=== PATIENT | female | born 1960 | race Caucasian/White ===

== ENCOUNTER → 2020-09-29 08:04 | Outpatient (BNVA) | payer OTHER, SELFPAY | PROVIDERS: PCP Internal Medicine; Referring Provider Internal Medicine; Visit Provider Psychiatry & Neurology Neurology | DX: Z76.89 Persons encountering health services in other specified circumstances (principal) ==

== ENCOUNTER 2020-11-12 10:43 | Outpatient (REF) | payer OTHER, SELFPAY ==
--- NOTE | 2020-11-12 10:48 | MM_ITS ---
EXAMINATION: MM SCREENING DIGITAL BREAST TOMOSYNTHESIS, BILATERAL CLINICAL INFORMATION: Screening. Asymptomatic. Family history breast cancer maternal and paternal aunts. Benign right MR guided biopsy 04/15/2016 (Benign breast tissue with focal adenosis, stromal fibrosis, and microcalcifications). The lifetime risk of breast cancer based on the Tyrer-Cuzick Model is 21.4%. COMPARISON: Mammography: 05/21/2019, 05/15/2018, 05/11/2017; MRI breasts 11/26/2019 TECHNIQUE: Digital breast tomosynthesis is performed in both the craniocaudal and mediolateral oblique views along with computer-aided detection (CAD). Synthesized 2D images are generated from the tomosynthesis. FINDINGS: The breasts are heterogeneously dense, which may obscure small masses (ACR BI-RADS breast composition Category c). There are no significant masses, abnormal calcifications, or other abnormalities. There is a biopsy clip marker again seen posterior central 3:00 right breast. MM/MM tomosynthesis screening BI IMPRESSION: No significant changes from prior studies. ASSESSMENT: BI-RADS 1: Negative RECOMMENDATION: 1. Routine annual mammography screening. 2. The lifetime risk of breast cancer based on the Tyrer-Cuzick Model is 21.4%. Additional annual adjunct screening with breast MRI may be of benefit in women with a risk score of 20% or greater. This patient's information was entered into a reminder system with a target due date for their next mammogram.
== END 2020-11-12 10:44 | disposition home or self-care (01) ==
LOC: HO.MAMMO 10:43
PROVIDERS: Visit Provider Internal Medicine
DX: Z12.31 Encounter for screening mammogram for malignant neoplasm of breast (principal)
CPT/HCPCS: 77063; 77067

== ENCOUNTER → 2020-11-24 15:43 | Outpatient (BNVA) | payer OTHER, SELFPAY | PROVIDERS: PCP Internal Medicine; Referring Provider Internal Medicine; Visit Provider Surgery | DX: Z76.89 Persons encountering health services in other specified circumstances (principal) ==

== ENCOUNTER 2021-02-06 08:27 | Outpatient (REF) | payer OTHER, SELFPAY ==
[2021-02-06 09:57] LABS: Blood Urea Nitrogen 17 mg/dL (9-16); Estimated Glomerular Filt Rate > 60
== END 2021-02-06 08:28 | disposition home or self-care (01) ==
LOC: HO.LAB 08:27
PROVIDERS: Surgery; PCP Internal Medicine; Visit Provider Internal Medicine
DX: Z01.812 Encounter for preprocedural laboratory examination (principal); G47.33 Obstructive sleep apnea (adult) (pediatric); F41.9 Anxiety disorder, unspecified; E78.00 Pure hypercholesterolemia, unspecified; I25.10 Atherosclerotic heart disease of native coronary artery without angina pectoris; E53.8 Deficiency of other specified B group vitamins; R00.2 Palpitations
CPT/HCPCS: 36415; 82565; 84520

== ENCOUNTER 2021-02-19 18:02 | Outpatient (REF) | payer OTHER, SELFPAY ==
[2021-02-20 15:16] LABS: BV Int Neg Control Negative (Negative); BV Int Pos Control Positive (Positive)
== END 2021-02-19 18:03 | disposition home or self-care (01) ==
LOC: HO.LNP 18:02
PROVIDERS: Visit Provider Internal Medicine
DX: Z12.4 Encounter for screening for malignant neoplasm of cervix (principal); Z11.3 Encounter for screening for infections with a predominantly sexual mode of transmission
CPT/HCPCS: 87480; 87510; 87660; 88142

== ENCOUNTER 2021-02-27 08:47 | Outpatient (REF) | payer OTHER, SELFPAY ==
[2021-02-27 10:10] LABS: MANUAL DIFF FLAG NO
[2021-02-27 10:13] LABS: Basophils Percent Auto 0.9 % (0-2); Eosinophils Absolute Auto 0.1 X10*3/uL (0.0-0.4); Eosinophils Percent Auto 2.3 % (0-4); Hematocrit 38.2 % (37-47); Imm Gran Abs Auto 0.01 X10*3/uL (0.00-0.03); Imm Gran Pct Auto 0.3 % (0.0-0.4); Lymphocytes Absolute Auto 1.5 X10*3/uL (1.2-4.9); Lymphocytes Percent Auto 44.6 % (20-40); Mean Corpuscular HGB Conc 31.4 g/dl (31.0-35.0); Mean Corpuscular Hemoglobin 34.2 pg (27.0-33.0); Mean Corpuscular Volume 108.8 fL (80-98); Mean Platelet Volume 9.3 fL (9.4-12.3); Monocytes Absolute Auto 0.3 X10*3/uL (0.1-1.2); Monocytes Percent Auto 9.3 % (2-11); Neutrophils Absolute Auto 1.5 X10*3/uL (2.0-8.3); Neutrophils Percent Auto 42.6 % (45-73); Platelet Count 197 X10*3/uL (160-400); Red Blood Count 3.51 X10*6/uL (4.20-5.50); Red Cell Distribution Width 12.1 % (11.0-16.0); White Blood Count 3.5 X10*3/uL (4.8-10.8)
[2021-02-27 10:50] LABS: Alanine Aminotransferase 18 U/L (0-31); Alkaline Phosphatase 67 U/L (39-117); Anion Gap 9 (12-20); Aspartate Amino Transferase 21 U/L (5-31); Bilirubin Total 0.9 mg/dL (0.0-1.0); Blood Urea Nitrogen 13 mg/dL (9-16); Calcium 8.9 mg/dL (8.4-10.2); Carbon Dioxide 28 mmol/L (22-29); Chloride 109 mmol/L (96-108); Cholesterol 151 mg/dL; Estimated Glomerular Filt Rate > 60; Glucose Random 92 mg/dL (60-115); HDL Cholesterol 80 mg/dL; LDL Cholesterol Calculated 64 mg/dl; Potassium 4.4 mmol/L (3.3-5.1); Sodium 142 mmol/L (135-145); Total Protein 6.2 g/dL (6.5-8.0); Triglycerides 36 mg/dL
[2021-02-27 11:06] LABS: Free T4 (Free Thyroxine) 1.03 ng/dL (0.71-1.85); Thyroid Stimulating Hormone 1.14 uIU/mL (0.32-4.0); Vitamin D 25-OH Total 30.1 ng/mL (>30)
[2021-02-27 13:23] LABS: CT PCR NOT DETECTED (Not Detect.); NG PCR NOT DETECTED (Not Detect.)
[2021-03-01 03:52] LABS: Folate 11.1 ng/mL (> or = 4.0); Vitamin B12 1273 pg/mL (200-900)
== END 2021-02-27 08:48 | disposition home or self-care (01) ==
LOC: HO.LAB 08:47
PROVIDERS: PCP Internal Medicine; Visit Provider Internal Medicine
DX: Z11.3 Encounter for screening for infections with a predominantly sexual mode of transmission (principal); E78.00 Pure hypercholesterolemia, unspecified; I25.10 Atherosclerotic heart disease of native coronary artery without angina pectoris
CPT/HCPCS: 80053; 80061; 82306; 82607; 82746; 84439; 84443; 85025; 87491; 87591

== ENCOUNTER → 2021-04-13 11:07 | Outpatient (BNVA) | payer OTHER, SELFPAY | PROVIDERS: PCP Internal Medicine; Visit Provider Psychiatry & Neurology Neurology ==

== ENCOUNTER 2021-05-19 18:07 | Outpatient (REF) | payer OTHER, SELFPAY ==
--- NOTE | ~2021-05-19 | MR_ITS ---
EXAMINATION: MR BREAST WITHOUT AND WITH CONTRAST, BILATERAL CLINICAL INFORMATION: High-risk screening. COMPARISON: MRI 11/26/2019, 11/16/2018. TECHNIQUE: Imaging was performed with a dedicated breast coil. Prior to the administration of contrast, bilateral axial T1 and bilateral axial T2 weighted sequences were obtained. After the uneventful administration of?7 mL of Gadavist, dynamic contrast-enhanced VIBRANT series through the breasts in the axial plane were performed. Subtracted images were performed and reviewed. A delayed sagittal sequence through both breasts was acquired. Additionally, CAD post-processing, including maximum intensity projections, 3-D reconstructions and kinetic analysis, were performed an independent workstation and reviewed by the interpreting radiologist is a portion of this exam. FINDINGS: The patient's fibroglandular tissue demonstrates mild background enhancement. LEFT BREAST: No suspicious masslike or non-masslike enhancement. No abnormal skin thickening or nipple retraction. No abnormal architectural distortion. Review of the T2 weighted images demonstrates no fibrocystic changes or dilated ducts. Review of kinetic images reveals no additional findings. RIGHT BREAST: No suspicious masslike or non-masslike enhancement. No abnormal skin thickening or nipple retraction. No abnormal architectural distortion. Review of the T2 weighted images demonstrates no fibrocystic changes or dilated ducts. Review of kinetic images reveals no additional findings. There is no suspicious internal mammary chain or axillary adenopathy. Limited views of the chest and abdomen are unremarkable. MR/MR breast BI wo/w con IMPRESSION: No MR specific evidence of malignancy. ASSESSMENT: LEFT BREAST: BI-RADS 1-Negative RIGHT BREAST: BI-RADS 1-Negative RECOMMENDATIONS: Clinical follow-up. Continued annual mammographic surveillance. Further breast MRI as risk factors dictate.
== END 2021-05-19 18:08 | disposition home or self-care (01) ==
LOC: HO.MRI 18:07
PROVIDERS: PCP Internal Medicine; Visit Provider Surgery
DX: Z91.89 Other specified personal risk factors, not elsewhere classified (principal); Z80.3 Family history of malignant neoplasm of breast
CPT/HCPCS: 77049; A9585

== ENCOUNTER → 2021-06-10 15:22 | Outpatient (BNVA) | payer OTHER, SELFPAY | PROVIDERS: PCP Internal Medicine; Referring Provider Internal Medicine; Visit Provider Surgery ==

== ENCOUNTER → 2021-07-15 13:09 | Outpatient (BNVA) | payer OTHER, SELFPAY | PROVIDERS: PCP Internal Medicine; Referring Provider Internal Medicine; Visit Provider Internal Medicine | DX: I25.10 Atherosclerotic heart disease of native coronary artery without angina pectoris (principal); G47.33 Obstructive sleep apnea (adult) (pediatric); R94.39 Abnormal result of other cardiovascular function study | CPT/HCPCS: 93005 ==

== ENCOUNTER → 2021-10-26 11:50 | Outpatient (BNVA) | payer OTHER, SELFPAY | PROVIDERS: PCP Internal Medicine; Referring Provider Internal Medicine; Visit Provider Psychiatry & Neurology Neurology ==

== ENCOUNTER 2021-11-24 09:47 | Outpatient (REF) | payer OTHER, SELFPAY ==
--- NOTE | ~2021-11-24 | MM_ITS ---
EXAMINATION: MM SCREENING DIGITAL BREAST TOMOSYNTHESIS, BILATERAL CLINICAL INFORMATION: Screening. Asymptomatic. Prior history right lumpectomy for ADH, 2007. Benign right MR guided biopsy 04/15/2016 (focal adenosis, stromal fibrosis, microcalcifications). The lifetime risk of breast cancer based on the Tyrer-Cuzick Model is 28%. COMPARISON: Mammography: 11/12/2020, 05/21/2019, 06/01/2018; MR breasts 05/19/2021 TECHNIQUE: Digital breast tomosynthesis is performed in both the craniocaudal and mediolateral oblique views along with computer-aided detection (CAD). Synthesized 2D images are generated from the tomosynthesis. FINDINGS: The breasts are heterogeneously dense, which may obscure small masses (ACR BI-RADS breast composition Category c). Parenchymal pattern is similar to prior study. No interval mass, developing density, or architectural abnormality. There is biopsy marker again noted posterior central 3:00 right breast. The axilla and skin contours are unremarkable. Left breast has 3 small benign coarse calcifications mid upper outer quadrant. Right breast has some fine calcifications posterior central 1:00 position, some possibly related to vascular calcification on MLO tomography. MM/MM tomosynthesis screening BI IMPRESSION: 1. Right: Fine calcifications posterior central 1:00 position, some possibly vascular. 2. Left: No significant changes from prior study. ASSESSMENT: BI-RADS 0: Incomplete - Need Additional Imaging Evaluation RECOMMENDATION: 1. Additional views of the right breast (magnification CC, magnification LM). 2. Radiology department staff will contact the patient for additional imaging. 3. The lifetime risk of breast cancer based on the Tyrer-Cuzick Model is 28%. Additional annual adjunct screening with breast MRI may be of benefit in women with a risk score of 20% or greater. This patient's information was entered into a reminder system with a target due date for their next mammogram.
== END 2021-11-24 09:48 | disposition home or self-care (01) ==
LOC: HO.MAMMO 09:47
PROVIDERS: PCP Internal Medicine; Visit Provider Internal Medicine
DX: Z12.31 Encounter for screening mammogram for malignant neoplasm of breast (principal)
CPT/HCPCS: 77063; 77067

== ENCOUNTER 2021-12-08 14:56 | Outpatient (REF) | payer OTHER, SELFPAY ==
--- NOTE | ~2021-12-08 | MM_ITS ---
EXAMINATION: MM DIAGNOSTIC DIGITAL MAMMOGRAPHY, RIGHT CLINICAL INFORMATION: Recall from screening for new fine calcifications posterior central 1:00 position. Prior history right lumpectomy for ADH, 2007. Benign right MR guided biopsy 2016 (focal adenosis, stromal fibrosis, microcalcifications). TC score 28%. COMPARISON: Mammography: 11/12/2020, 05/21/2019; MR bilateral breasts 05/19/2021. TECHNIQUE: Digital mammography is performed in the following views: Magnification CC, magnification LM, magnification LMO. FINDINGS: The breasts are heterogeneously dense, which may obscure small masses (ACR BI-RADS breast composition Category c). The additional magnification views demonstrate loosely grouped punctate calcifications which slightly vary in size and attenuation. There are likely at least 10 calcifications in the group. Results are discussed with the patient at time of visit. Management options are discussed with the patient. Patient is in favor of stereotactic sampling. Results are called to the telegraph office manager (Deepali) for Dr. Hernandez on 12/08/2021. MM/MM added views RT IMPRESSION: New loosely grouped calcifications central 1:00 right breast which vary in size and attenuation. ASSESSMENT: BI-RADS 4: Suspicious (subcategory 4A: Low suspicion for malignancy) RECOMMENDATION: Stereotactic sampling right breast calcifications. This patient's information was entered into a reminder system with a target due date for their next mammogram.
== END 2021-12-08 14:57 | disposition home or self-care (01) ==
LOC: HO.MAMMO 14:56
PROVIDERS: Visit Provider Internal Medicine
DX: R92.1 Mammographic calcification found on diagnostic imaging of breast (principal)
CPT/HCPCS: 77065

== ENCOUNTER → 2021-12-09 15:42 | Outpatient (BNVA) | payer OTHER, SELFPAY | PROVIDERS: PCP Internal Medicine; Referring Provider Internal Medicine; Visit Provider Surgery ==

== ENCOUNTER 2021-12-10 07:57 | Outpatient (REF) | payer OTHER, SELFPAY ==
--- NOTE | ~2021-12-10 | MM_ITS ---
EXAMINATION: STEREOTACTIC TOMOSYNTHESIS-GUIDED VACUUM-ASSISTED BREAST BIOPSY, RIGHT BREAST SPECIMEN RADIOGRAPH, RIGHT POST PROCEDURE DIGITAL MAMMOGRAM, RIGHT CLINICAL INFORMATION: Indeterminate calcifications. History of previous right breast stereotactic core biopsy with atypical hyperplasia present. Family history of breast cancer. COMPARISON: December 08, 2021 and studies dating back to January 14, 2014. TECHNIQUE/PROCEDURE: Informed consent was obtained from the patient after discussion of the benefits, risks, and alternatives to biopsy today. Patient appeared to understand. Gave opportunity for questions. Patient signed consent form. BIOPSY TABLE: [employer] Biopsy System. LESION: Grouping of calcifications about the superior aspect of the right breast. LOCAL ANESTHESIA: 10 mL 1% lidocaine with 1 mL of bicarbonate; 20 mL 1% lidocaine with epinephrine. DERMATOTOMY: Single skin jose raul dermatotomy performed. NEEDLE: [employer] 9-gauge vacuum assisted core biopsy device. APPROACH: Superior. TARGETING: Digital breast tomosynthesis used for targeting. CORES: 21. CLIP: [employer] T-shaped marker. SPECIMEN RADIOGRAPH: Specimen radiograph is taken in separate room using digital mammography. The index calcifications are in the excised cores. POST PROCEDURE UNILATERAL DIGITAL MAMMOGRAM: The post biopsy mammogram is performed in separate room using separate digital mammography equipment from the biopsy procedure. Craniocaudal and 90 degree mediolateral views are obtained. There are scattered areas of fibroglandular density (breast composition category: b). The clip marker is in position. The calcifications are markedly decreased at the biopsy site. Small hematoma present. The patient tolerated the procedure well. No immediate complications. Home instructions reviewed with the patient. Final pathology results are pending. MM/MM stereotactic biopsy RT IMPRESSION: 1. Digital tomosynthesis-guided core biopsy right breast with clip placement. 2. Specimen radiograph taken and post procedure mammogram. There is satisfactory positioning of the biopsy clip. 3. Final pathology results pending. An addendum report will be issued.
[2021-12-10] MEDS: Lidocaine HCl 1 % 20 ML VIAL 10 ML SUBCUT (09:41)
[2021-12-10] MEDS: Sodium Bicarbonate 8.4% 50 MEQ/50 ML VIAL SUBCUT (09:43)
== END 2021-12-10 07:58 | disposition home or self-care (01) ==
LOC: HO.MAMMO 07:57
PROVIDERS: PCP Internal Medicine; Visit Provider Surgery
DX: N60.91 Unspecified benign mammary dysplasia of right breast (principal); R92.1 Mammographic calcification found on diagnostic imaging of breast; R92.8 Other abnormal and inconclusive findings on diagnostic imaging of breast
CPT/HCPCS: 19081; 88305; A4648

== ENCOUNTER → 2021-12-14 14:56 | Outpatient (BNVA) | payer OTHER, SELFPAY | PROVIDERS: PCP Internal Medicine; Referring Provider Internal Medicine; Visit Provider Surgery | DX: R92.8 Other abnormal and inconclusive findings on diagnostic imaging of breast (principal); R92.1 Mammographic calcification found on diagnostic imaging of breast; N60.91 Unspecified benign mammary dysplasia of right breast ==

== ENCOUNTER 2022-03-12 09:12 | Outpatient (REF) | payer OTHER, SELFPAY ==
[2022-03-12 09:39] LABS: MANUAL DIFF FLAG NO
[2022-03-12 10:01] LABS: Eosinophils Absolute Auto 0.1 X10*3/uL (0.0-0.4); Hematocrit 39.1 % (37.0-47.0); Hemoglobin 12.5 g/dl (12.0-16.0); Lymphocytes Absolute Auto 1.6 X10*3/uL (1.2-4.9); Lymphocytes Percent Auto 40.2 % (20-40); Mean Corpuscular Hemoglobin 34.2 pg (27.0-33.0); Mean Corpuscular Volume 107.1 fL (80.0-98.0); Mean Platelet Volume 8.9 fL (9.4-12.3); Monocytes Absolute Auto 0.4 X10*3/uL (0.1-1.2); Monocytes Percent Auto 8.6 % (2-11); Neutrophils Percent Auto 48.2 % (45-73); Platelet Count 225 X10*3/uL (160-400); Red Blood Count 3.65 X10*6/uL (4.20-5.50); Red Cell Distribution Width 11.7 % (11.0-16.0); White Blood Count 4.1 X10*3/uL (4.8-10.8)
[2022-03-12 10:32] LABS: Alanine Aminotransferase 16 U/L (0-31); Albumin Level 4.2 g/dL (3.5-5.0); Alkaline Phosphatase 70 U/L (39-117); Anion Gap 10 (12-20); Aspartate Amino Transferase 21 U/L (5-31); B Type Natriuretic Peptide 27 pg/mL (<100); Bilirubin Total 0.8 mg/dL (0.0-1.0); Blood Urea Nitrogen 14 mg/dL (9-16); Calcium 9.7 mg/dL (8.4-10.2); Carbon Dioxide 28 mmol/L (22-29); Chloride 108 mmol/L (96-108); Cholesterol 175 mg/dL; Estimated Glomerular Filt Rate > 60; Glucose Random 96 mg/dL (60-115); HDL Cholesterol 81 mg/dL; LDL Cholesterol Calculated 85 mg/dl; Potassium 4.7 mmol/L (3.3-5.1); Sodium 141 mmol/L (135-145); Total Protein 6.8 g/dL (6.5-8.0); Triglycerides 48 mg/dL
[2022-03-12 11:07] LABS: Free T4 (Free Thyroxine) 0.99 ng/dL (0.71-1.85); Thyroid Stimulating Hormone 1.42 uIU/mL (0.32-4.0)
[2022-03-12 14:13] LABS: Vitamin D 25-OH Total 35.6 ng/mL (>30)
[2022-03-14 10:08] LABS: Folate 15.1 ng/mL (> or = 4.0); Vitamin B12 908 pg/mL (200-900)
== END 2022-03-12 09:13 | disposition home or self-care (01) ==
LOC: HO.LAB 09:12
PROVIDERS: PCP Internal Medicine; Visit Provider Internal Medicine
DX: I25.10 Atherosclerotic heart disease of native coronary artery without angina pectoris (principal); E78.00 Pure hypercholesterolemia, unspecified
CPT/HCPCS: 36415; 80053; 80061; 82306; 82607; 82746; 83880; 84439; 84443; 85025

== ENCOUNTER 2022-06-01 15:46 | Outpatient (REF) | payer OTHER, SELFPAY ==
--- NOTE | ~2022-06-01 | MR_ITS ---
EXAMINATION: MR BREAST WITHOUT AND WITH CONTRAST, BILATERAL CLINICAL INFORMATION: High-risk screening. Recent benign right breast biopsy. COMPARISON: MRI 05/19/2021, 11/26/2019 TECHNIQUE: Imaging was performed with a dedicated breast coil. Prior to the administration of contrast, bilateral axial T1 and bilateral axial T2 weighted sequences were obtained. After the uneventful administration of?7 mL of Gadavist, dynamic contrast-enhanced VIBRANT series through the breasts in the axial plane were performed. Subtracted images were performed and reviewed. A delayed sagittal sequence through both breasts was acquired. Additionally, CAD post-processing, including maximum intensity projections, 3-D reconstructions and kinetic analysis, were performed an independent workstation and reviewed by the interpreting radiologist is a portion of this exam. FINDINGS: The patient's heterogeneously dense fibroglandular tissue demonstrates mild background enhancement. LEFT BREAST: No suspicious masslike or non-masslike enhancement. No abnormal skin thickening or nipple retraction. No abnormal architectural distortion. Review of the T2 weighted images demonstrates no fibrocystic changes or dilated ducts. Review of kinetic images reveals no additional findings. RIGHT BREAST: No suspicious masslike or non-masslike enhancement. No abnormal skin thickening or nipple retraction. No abnormal architectural distortion. Review of the T2 weighted images demonstrates no fibrocystic changes or dilated ducts. Review of kinetic images reveals no additional findings. There is no suspicious internal mammary chain or axillary adenopathy. Limited views of the chest and abdomen are unremarkable. MR/MR breast BI wo/w con IMPRESSION: No MR specific evidence of malignancy. ASSESSMENT: LEFT BREAST: BI-RADS 1-Negative RIGHT BREAST: BI-RADS 1-Negative RECOMMENDATIONS: Clinical follow-up. Continued annual mammographic surveillance. Further breast MRI as risk factors dictate.
== END 2022-06-01 15:47 | disposition home or self-care (01) ==
LOC: HO.MRI 15:46
PROVIDERS: Visit Provider Surgery
DX: N60.91 Unspecified benign mammary dysplasia of right breast (principal); Z80.3 Family history of malignant neoplasm of breast
CPT/HCPCS: 77049; A9585

== ENCOUNTER → 2022-07-20 15:04 | Outpatient (BNVA) | payer OTHER, SELFPAY | PROVIDERS: PCP Internal Medicine; Referring Provider Internal Medicine; Visit Provider Internal Medicine | DX: R94.39 Abnormal result of other cardiovascular function study (principal); I25.10 Atherosclerotic heart disease of native coronary artery without angina pectoris; I49.1 Atrial premature depolarization; I49.3 Ventricular premature depolarization | CPT/HCPCS: 93005 ==

== ENCOUNTER 2022-11-29 09:24 | Outpatient (REF) | payer OTHER, SELFPAY ==
--- NOTE | ~2022-11-29 | MM_ITS ---
EXAMINATION: MM SCREENING DIGITAL BREAST TOMOSYNTHESIS, BILATERAL CLINICAL INFORMATION: Screening. Asymptomatic. Prior history right lumpectomy for ADH, 2007. Benign right MR guided biopsy 04/15/2016 (focal adenosis, stromal fibrosis, microcalcifications). Benign right stereotactic biopsy 12/10/2021 (benign breast tissue with fibroadenomatous change, adenosis, and calcifications. No atypia or malignancy). The lifetime risk of breast cancer based on the Tyrer-Cuzick Model is 16%. COMPARISON: Mammography: 12/10/2021, 12/08/2021, 11/24/2021, 11/12/2020, 05/21/2019; MRI breasts 06/01/2022. TECHNIQUE: Digital breast tomosynthesis is performed in both the craniocaudal and mediolateral oblique views along with computer-aided detection (CAD). Synthesized 2D images are generated from the tomosynthesis. FINDINGS: The breasts are heterogeneously dense, which may obscure small masses (ACR BI-RADS breast composition Category c). There are 2 biopsy clip markers mid upper right breast. Inhomogeneous parenchymal pattern is similar to prior studies. No developing density. No abnormal calcifications or significant mass. The axilla and skin contours are unremarkable. MM/MM tomosynthesis screening BI IMPRESSION: No mammographic evidence of malignancy. ASSESSMENT: BI-RADS 2: Benign RECOMMENDATION: Routine annual mammography screening. This patient's information was entered into a reminder system with a target due date for their next mammogram.
== END 2022-11-29 09:25 | disposition home or self-care (01) ==
LOC: HO.MAMMO 09:24
PROVIDERS: Visit Provider Internal Medicine
DX: Z12.31 Encounter for screening mammogram for malignant neoplasm of breast (principal)
CPT/HCPCS: 77063; 77067

== ENCOUNTER → 2023-02-09 09:38 | Outpatient (BNVA) | payer OTHER, SELFPAY | PROVIDERS: PCP Internal Medicine; Referring Provider Internal Medicine; Visit Provider Surgery | DX: Z13.89 Encounter for screening for other disorder (principal) ==

== ENCOUNTER 2023-02-16 16:57 | Emergency (ER) | payer OTHER, SELFPAY ==
--- NOTE | ~2023-02-16 | XR_ITS ---
EXAMINATION: XR CHEST CLINICAL INFORMATION: Reason for Exam chest pain COMPARISON: None TECHNIQUE: 2 views of the chest FINDINGS: Biapical pleural-parenchymal scarring. Lungs appear otherwise clear. No pneumothorax or pleural effusion. Normal cardiomediastinal silhouette. XR/XR chest 2V IMPRESSION: Biapical pleural-parenchymal scarring. Lungs appear otherwise clear.
--- NOTE | 2023-02-16 16:59 | ECG_ITS ---
Test Reason : cp Blood Pressure : / mmHG Vent. Rate : 071 BPM Atrial Rate : 071 BPM P-R Int : 122 ms QRS Dur : 076 ms QT Int : 402 ms P-R-T Axes : 012 034 031 degrees QTc Int : 436 ms Normal sinus rhythm Low voltage QRS Septal infarct , age undetermined Abnormal ECG When compared with ECG of 04-NOV-2014 08:36, No significant change was found Referred By: Lore Huizar Electronically Signed By:Rohit Lozano
--- NOTE | 2023-02-16 17:35 | ED.CHESTPAIN ---
HPI - Chest Pain General Chief Complaint: Chest Pain <KIM Gaspar - Last Filed: 02/16/23 17:39> Stated Complaint: chest pain x2 hrs <KIM Gaspar - Last Filed: 02/16/23 17:39> Time Seen by Provider: 02/16/23 19:36 <KIM Gaspar - Last Filed: 02/16/23 17:39> Related Data Home Medications: Home Medications Medication Instructions Recorded Confirmed cholecalciferol (vitamin D3) 50 50 mcg PO DAILY 11/24/20 02/09/23 mcg (2,000 unit) capsule valacyclovir 1 gram tablet mg PO PRN 07/15/21 02/09/23 Previous Rx's Medication Instructions Recorded aspirin 81 mg tablet,delayed 81 mg PO DAILY #90 tabs 06/10/22 release cyanocobalamin (vitamin B-12) 1,000 mcg PO .COMPLEX #90 tabs 08/29/22 1,000 mcg tablet alprazolam 0.25 mg tablet 0.25 mg PO DAILY PRN anxiety #20 11/15/22 tabs atorvastatin 40 mg tablet 40 mg PO DAILY #90 tabs 12/12/22 <KIM Gaspar - Last Filed: 02/16/23 17:39> Allergies/Adverse Reactions: Allergies Allergy/AdvReac Type Severity Reaction Status Date / Time adhesive [ADHESIVE] Allergy Intermediate ITCHING Verified 02/09/23 09:39 Penicillins [PENICILLINS] Allergy Intermediate RASH Verified 02/09/23 09:39 <KIM Gaspar - Last Filed: 02/16/23 17:39> [facility] Past Medical History Medical History: Medical History Abnormal mammogram of right breast Abnormal myocardial perfusion study Anxiety Atypical ductal hyperplasia of right breast Breast calcification, right Coronary artery disease Diverticular disease Hypercholesterolemia Urge incontinence Vitamin D deficiency <KIM Gaspar - Last Filed: 02/16/23 17:39> Surgical History: Surgical History History of lumpectomy of right breast (~2008) History of myomectomy Hx of section Hx of right breast biopsy Hx of tonsillectomy <KIM Gaspar - Last Filed: 02/16/23 17:39> Family History Family History: Family History Mother Hx of cancer of lung Paternal Aunt HX: breast cancer Maternal Aunt History of esophageal cancer HX: breast cancer Myocardial infarct Father Myocardial infarct Other Substance abuse <KIM Gaspar - Last Filed: 02/16/23 17:39> Social History Social History: Social History Housing: House Alcohol intake: current Alcohol intake frequency: holidays/special occasions only Alcohol type: wine Patient Tobacco Use Status: Former Tobacco user Years Smoked: quit 1999 Smoked in Last 30 Days: No e-Cigarette/Vaping Use: Never Used Second Hand Smoke Exposure: No Use of substances other than those prescribed or required for medical reasons: No Advance Directives: No Advance Directives Information Provided: Yes Patient : No Current occupational status: employed Cognitive needs: No Hearing needs: No Vision needs: Yes <KIM Gaspar - Last Filed: 02/16/23 17:39> Physical Exam Vital Signs: Vital Signs: Last Vital Signs Temp 97.8 F 02/16/23 22:04 Pulse 64 02/16/23 22:04 Resp 16 02/16/23 22:04 BP 110/56 L 02/16/23 22:04 Pulse Ox 97 02/16/23 22:04 O2 Del Method Room Air 02/16/23 22:04 BMI result Body Mass Index 25.7 <KIM Gaspar - Last Filed: 02/16/23 17:39> Vital Signs: Last Vital Signs Temp 97.8 F 02/16/23 22:04 Pulse 64 02/16/23 22:04 Resp 16 02/16/23 22:04 BP 110/56 L 02/16/23 22:04 Pulse Ox 97 02/16/23 22:04 O2 Del Method Room Air 02/16/23 22:04 BMI result Body Mass Index 25.7 <July Chandler MD - Last Filed: 02/16/23 22:50> Course Course Course Narrative: RME - 62 y/o with history of CAD, HLD, LEEANNE, PACs, PVCs who presents to the ER for evaluation of central chest pain and pressure that started at 3pm when she was at work typing. No associated SOB, nausea or diaphoresis. Described as a ball of pressure. No radiation of the pain. Follows w/ Dr. Aranda. Plan: EKG, trop x2 to r/o ACS <KIM Gaspar - Last Filed: 02/16/23 17:39> Medical Decision Making Medical Decision Making [facility] Narrative: Patient states that she feels much better, patient has no chest pain.? Troponin x2 negative. -chest x-ray interpreted by me:? No acute finding, lungs seem a bit hyperinflated -EKG interpreted by me:? Normal sinus rhythm, heart rate 71, no ST segment depression or elevation, no T-wave inversion, QTC 436 <July Chandler MD - Last Filed: 02/16/23 22:50> Differential Diagnosis Differential Diagnoses: The differential diagnosis associated with the presentation includes (Atypical chest pain, costochondritis, abdominal pain, ACS) <July Chandler MD - Last Filed: 02/16/23 22:50> Lab Data [facility] Lab Attestation statement: I reviewed the patient's lab results. <July Chandler MD - Last Filed: 02/16/23 22:50> Result Diagrams: 02/16/23 18:11 02/16/23 18:11 <KIM Gaspar - Last Filed: 02/16/23 17:39> Labs: Lab Results 02/16/23 02/16/23 02/16/23 Range/Units 18:11 18:11 18:11 WBC 6.1 (4.8-10.8) X10*3/uL RBC 3.67 L (4.20-5.50) X10*6/uL Hgb 12.7 (12.0-16.0) g/dl Hct 39.1 (37.0-47.0) % MCV 106.5 H (80.0-98.0) fL MCH 34.6 H (27.0-33.0) pg MCHC 32.5 (31.0-35.0) g/dl RDW 11.9 (11.0-16.0) % Plt Count 206 (160-400) X10*3/uL MPV 8.8 L (9.4-12.3) fL Immature Gran % (Auto) 0.2 (0.0-0.4) % Neut % (Auto) 49.0 (45-73) % Lymph % (Auto) 37.5 (20-40) % [place] % (Auto) 9.0 (2-11) % Eos % (Auto) 3.3 (0-4) % Baso % (Auto) 1.0 (0-2) % Lymph # (Auto) 2.3 (1.2-4.9) X10*3/uL [place] # (Auto) 0.6 (0.1-1.2) X10*3/uL Eos # (Auto) 0.2 (0.0-0.4) X10*3/uL Baso # (Auto) 0.1 (0.0-0.2) X10*3/uL Abs Immat Gran (auto) 0.01 (0.00-0.03) X10*3/uL Absolute Neuts (auto) 3.0 (2.0-8.3) x10*3/uL Absolute Nucleated RBC 0.000 (0.0-0.012) X10*3/uL Nucleated RBC % (auto) 0.0 (0.0-0.2) /100WBC Sodium 145 (135-145) mmol/L Potassium 4.4 (3.3-5.1) mmol/L Chloride 110 H (96-108) mmol/L Carbon Dioxide 27 (22-29) mmol/L Anion Gap 12 (12-20) BUN 16 (9-16) mg/dL Creatinine 0.79 (0.5-1.4) mg/dL Estim Creat Clear Calc 70.8 Estimated GFR > 60 Random Glucose 93 (60-115) mg/dL Calcium 9.3 (8.4-10.2) mg/dL Magnesium 2.1 (1.6-2.6) mg/dL Total Bilirubin 0.8 (0.0-1.0) mg/dL Direct Bilirubin 0.2 (0.0-0.5) mg/dL AST 20 (5-31) U/L ALT 14 (0-31) U/L Alkaline Phosphatase 71 (39-117) U/L Troponin I High Sens 2.7 (<3.5-17.0) ng/L Total Protein 6.6 (6.5-8.0) g/dL Albumin 4.2 (3.5-5.0) g/dL 02/16/23 Range/Units 20:55 WBC (4.8-10.8) X10*3/uL RBC (4.20-5.50) X10*6/uL Hgb (12.0-16.0) g/dl Hct (37.0-47.0) % MCV (80.0-98.0) fL MCH (27.0-33.0) pg MCHC (31.0-35.0) g/dl RDW (11.0-16.0) % Plt Count (160-400) X10*3/uL MPV (9.4-12.3) fL Immature Gran % (Auto) (0.0-0.4) % Neut % (Auto) (45-73) % Lymph % (Auto) (20-40) % [place] % (Auto) (2-11) % Eos % (Auto) (0-4) % Baso % (Auto) (0-2) % Lymph # (Auto) (1.2-4.9) X10*3/uL [place] # (Auto) (0.1-1.2) X10*3/uL Eos # (Auto) (0.0-0.4) X10*3/uL Baso # (Auto) (0.0-0.2) X10*3/uL Abs Immat Gran (auto) (0.00-0.03) X10*3/uL Absolute Neuts (auto) (2.0-8.3) x10*3/uL Absolute Nucleated RBC (0.0-0.012) X10*3/uL Nucleated RBC % (auto) (0.0-0.2) /100WBC Sodium (135-145) mmol/L Potassium (3.3-5.1) mmol/L Chloride (96-108) mmol/L Carbon Dioxide (22-29) mmol/L Anion Gap (12-20) BUN (9-16) mg/dL Creatinine (0.5-1.4) mg/dL Estim Creat Clear Calc Estimated GFR Random Glucose (60-115) mg/dL Calcium (8.4-10.2) mg/dL Magnesium (1.6-2.6) mg/dL Total Bilirubin (0.0-1.0) mg/dL Direct Bilirubin (0.0-0.5) mg/dL AST (5-31) U/L ALT (0-31) U/L Alkaline Phosphatase (39-117) U/L Troponin I High Sens 3.4 (<3.5-17.0) ng/L Total Protein (6.5-8.0) g/dL Albumin (3.5-5.0) g/dL <KIM Gaspar - Last Filed: 02/16/23 17:39> Lab Results 02/16/23 02/16/23 02/16/23 Range/Units 18:11 18:11 18:11 WBC 6.1 (4.8-10.8) X10*3/uL RBC 3.67 L (4.20-5.50) X10*6/uL Hgb 12.7 (12.0-16.0) g/dl Hct 39.1 (37.0-47.0) % MCV 106.5 H (80.0-98.0) fL MCH 34.6 H (27.0-33.0) pg MCHC 32.5 (31.0-35.0) g/dl RDW 11.9 (11.0-16.0) % Plt Count 206 (160-400) X10*3/uL MPV 8.8 L (9.4-12.3) fL Immature Gran % (Auto) 0.2 (0.0-0.4) % Neut % (Auto) 49.0 (45-73) % Lymph % (Auto) 37.5 (20-40) % [place] % (Auto) 9.0 (2-11) % Eos % (Auto) 3.3 (0-4) % Baso % (Auto) 1.0 (0-2) % Lymph # (Auto) 2.3 (1.2-4.9) X10*3/uL [place] # (Auto) 0.6 (0.1-1.2) X10*3/uL Eos # (Auto) 0.2 (0.0-0.4) X10*3/uL Baso # (Auto) 0.1 (0.0-0.2) X10*3/uL Abs Immat Gran (auto) 0.01 (0.00-0.03) X10*3/uL Absolute Neuts (auto) 3.0 (2.0-8.3) x10*3/uL Absolute Nucleated RBC 0.000 (0.0-0.012) X10*3/uL Nucleated RBC % (auto) 0.0 (0.0-0.2) /100WBC Sodium 145 (135-145) mmol/L Potassium 4.4 (3.3-5.1) mmol/L Chloride 110 H (96-108) mmol/L Carbon Dioxide 27 (22-29) mmol/L Anion Gap 12 (12-20) BUN 16 (9-16) mg/dL Creatinine 0.79 (0.5-1.4) mg/dL Estim Creat Clear Calc 70.8 Estimated GFR > 60 Random Glucose 93 (60-115) mg/dL Calcium 9.3 (8.4-10.2) mg/dL Magnesium 2.1 (1.6-2.6) mg/dL Total Bilirubin 0.8 (0.0-1.0) mg/dL Direct Bilirubin 0.2 (0.0-0.5) mg/dL AST 20 (5-31) U/L ALT 14 (0-31) U/L Alkaline Phosphatase 71 (39-117) U/L Troponin I High Sens 2.7 (<3.5-17.0) ng/L Total Protein 6.6 (6.5-8.0) g/dL Albumin 4.2 (3.5-5.0) g/dL 02/16/23 Range/Units 20:55 WBC (4.8-10.8) X10*3/uL RBC (4.20-5.50) X10*6/uL Hgb (12.0-16.0) g/dl Hct (37.0-47.0) % MCV (80.0-98.0) fL MCH (27.0-33.0) pg MCHC (31.0-35.0) g/dl RDW (11.0-16.0) % Plt Count (160-400) X10*3/uL MPV (9.4-12.3) fL Immature Gran % (Auto) (0.0-0.4) % Neut % (Auto) (45-73) % Lymph % (Auto) (20-40) % [place] % (Auto) (2-11) % Eos % (Auto) (0-4) % Baso % (Auto) (0-2) % Lymph # (Auto) (1.2-4.9) X10*3/uL [place] # (Auto) (0.1-1.2) X10*3/uL Eos # (Auto) (0.0-0.4) X10*3/uL Baso # (Auto) (0.0-0.2) X10*3/uL Abs Immat Gran (auto) (0.00-0.03) X10*3/uL Absolute Neuts (auto) (2.0-8.3) x10*3/uL Absolute Nucleated RBC (0.0-0.012) X10*3/uL Nucleated RBC % (auto) (0.0-0.2) /100WBC Sodium (135-145) mmol/L Potassium (3.3-5.1) mmol/L Chloride (96-108) mmol/L Carbon Dioxide (22-29) mmol/L Anion Gap (12-20) BUN (9-16) mg/dL Creatinine (0.5-1.4) mg/dL Estim Creat Clear Calc Estimated GFR Random Glucose (60-115) mg/dL Calcium (8.4-10.2) mg/dL Magnesium (1.6-2.6) mg/dL Total Bilirubin (0.0-1.0) mg/dL Direct Bilirubin (0.0-0.5) mg/dL AST (5-31) U/L ALT (0-31) U/L Alkaline Phosphatase (39-117) U/L Troponin I High Sens 3.4 (<3.5-17.0) ng/L Total Protein (6.5-8.0) g/dL Albumin (3.5-5.0) g/dL <July Chandler MD - Last Filed: 02/16/23 22:50> Discharge Plan Discharge Clinical Impression: Atypical chest pain <KIM Gaspar - Last Filed: 02/16/23 17:39> Patient Disposition: Home, Self-Care <KIM Gaspar - Last Filed: 02/16/23 17:39> Instructions: Chest Pain (ED) <KIM Gaspar - Last Filed: 02/16/23 17:39> Additional Instructions: Please follow-up with your primary care physician tomorrow. If you have any worsening or new symptoms, please return to the emergency room or call 911 <KIM Gaspar - Last Filed: 02/16/23 17:39> Prescriptions: No Action aspirin 81 mg tablet,delayed release (DR/EC) 81 mg PO DAILY Qty: 90 3RF cyanocobalamin (vitamin B-12) 1,000 mcg tablet 1,000 mcg PO .COMPLEX Qty: 90 3RF Rx Instructions: 1,000 mcg PO 2 x a week; alprazolam 0.25 mg tablet 0.25 mg PO DAILY PRN (Reason: anxiety) Qty: 20 0RF atorvastatin 40 mg tablet 40 mg PO DAILY Qty: 90 3RF cholecalciferol (vitamin D3) 50 mcg (2,000 unit) capsule 50 mcg PO DAILY valacyclovir 1 gram tablet PO PRN <KIM Gaspar - Last Filed: 02/16/23 17:39>
[2023-02-16 17:37] VITALS: BP 145/64; PULSE 73; RESP 18; TEMP 36.9; O2SAT 100; BMI 25.7
[2023-02-16 18:15] LABS: MANUAL DIFF FLAG NO
[2023-02-16 18:17] LABS: Basophils Absolute Auto 0.1 X10*3/uL (0.0-0.2); Eosinophils Absolute Auto 0.2 X10*3/uL (0.0-0.4); Eosinophils Percent Auto 3.3 % (0-4); Hematocrit 39.1 % (37.0-47.0); Hemoglobin 12.7 g/dl (12.0-16.0); Imm Gran Abs Auto 0.01 X10*3/uL (0.00-0.03); Imm Gran Pct Auto 0.2 % (0.0-0.4); Lymphocytes Absolute Auto 2.3 X10*3/uL (1.2-4.9); Lymphocytes Percent Auto 37.5 % (20-40); Mean Corpuscular HGB Conc 32.5 g/dl (31.0-35.0); Mean Corpuscular Hemoglobin 34.6 pg (27.0-33.0); Mean Corpuscular Volume 106.5 fL (80.0-98.0); Mean Platelet Volume 8.8 fL (9.4-12.3); Monocytes Absolute Auto 0.6 X10*3/uL (0.1-1.2); Platelet Count 206 X10*3/uL (160-400); Red Blood Count 3.67 X10*6/uL (4.20-5.50); Red Cell Distribution Width 11.9 % (11.0-16.0); White Blood Count 6.1 X10*3/uL (4.8-10.8)
[2023-02-16 18:32] LABS: Alanine Aminotransferase 14 U/L (0-31); Albumin Level 4.2 g/dL (3.5-5.0); Alkaline Phosphatase 71 U/L (39-117); Anion Gap 12 (12-20); Aspartate Amino Transferase 20 U/L (5-31); Bilirubin Direct 0.2 mg/dL (0.0-0.5); Bilirubin Total 0.8 mg/dL (0.0-1.0); Blood Urea Nitrogen 16 mg/dL (9-16); Calcium 9.3 mg/dL (8.4-10.2); Carbon Dioxide 27 mmol/L (22-29); Chloride 110 mmol/L (96-108); Creatinine Clr Calc Pharmacy 70.8; Estimated Glomerular Filt Rate > 60; Glucose Random 93 mg/dL (60-115); Magnesium 2.1 mg/dL (1.6-2.6); Potassium 4.4 mmol/L (3.3-5.1); Sodium 145 mmol/L (135-145); Total Protein 6.6 g/dL (6.5-8.0)
[2023-02-16 18:39] LABS: Troponin-I High Sensitivity 2.7 ng/L (<3.5-17.0)
[2023-02-16 19:18] VITALS: BP 136/82; PULSE 66; RESP 14; O2SAT 100
[2023-02-16 21:21] LABS: Troponin-I High Sensitivity 3.4 ng/L (<3.5-17.0)
[2023-02-16 22:04] VITALS: BP 110/56; PULSE 64; RESP 16; TEMP 36.6; O2SAT 97
--- NOTE | 2023-02-16 22:53 | PC.NURSE ---
Pt A&Ox4, reports sudden nonradiating sponge expansion feeling, soft ball to midsternal chest, denies any pain, describes it more of a discomfort sensation . Denies any SOB, palpitation or associated symptoms. 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 HR 60's. EKG obtained in triage and reviewed by provider.
== END 2023-02-16 23:07 | disposition home or self-care (01) ==
PROVIDERS: Physician Assistant; Emergency Provider Emergency Medicine; PCP Internal Medicine
DX: R07.89 Other chest pain (principal); I25.10 Atherosclerotic heart disease of native coronary artery without angina pectoris; Z79.899 Other long term (current) drug therapy; Z87.891 Personal history of nicotine dependence
CPT/HCPCS: 36415; 71046; 80048; 80076; 83735; 84484; 85025; 93005; 99283; 99285

== ENCOUNTER 2023-02-24 09:12 | Outpatient (REF) | payer OTHER, SELFPAY ==
[2023-02-24 11:32] LABS: MANUAL DIFF FLAG NO
[2023-02-24 12:03] LABS: Basophils Absolute Auto 0.1 X10*3/uL (0.0-0.2); Eosinophils Absolute Auto 0.2 X10*3/uL (0.0-0.4); Eosinophils Percent Auto 3.4 % (0-4); Hematocrit 37.5 % (37.0-47.0); Hemoglobin 12.3 g/dl (12.0-16.0); Imm Gran Abs Auto 0.01 X10*3/uL (0.00-0.03); Imm Gran Pct Auto 0.2 % (0.0-0.4); Lymphocytes Absolute Auto 1.8 X10*3/uL (1.2-4.9); Lymphocytes Percent Auto 35.3 % (20-40); Mean Corpuscular HGB Conc 32.8 g/dl (31.0-35.0); Mean Corpuscular Hemoglobin 35.2 pg (27.0-33.0); Mean Corpuscular Volume 107.4 fL (80.0-98.0); Mean Platelet Volume 9.5 fL (9.4-12.3); Monocytes Absolute Auto 0.4 X10*3/uL (0.1-1.2); Monocytes Percent Auto 7.7 % (2-11); Neutrophils Absolute Auto 2.6 x10*3/uL (2.0-8.3); Neutrophils Percent Auto 52.4 % (45-73); Platelet Count 205 X10*3/uL (160-400); Red Blood Count 3.49 X10*6/uL (4.20-5.50); Red Cell Distribution Width 12.1 % (11.0-16.0)
[2023-02-24 12:32] LABS: Alanine Aminotransferase 14 U/L (0-31); Albumin Level 4.1 g/dL (3.5-5.0); Alkaline Phosphatase 66 U/L (39-117); Anion Gap 12 (12-20); Aspartate Amino Transferase 20 U/L (5-31); Bilirubin Total 0.8 mg/dL (0.0-1.0); Blood Urea Nitrogen 18 mg/dL (9-16); Calcium 9.2 mg/dL (8.4-10.2); Carbon Dioxide 26 mmol/L (22-29); Chloride 110 mmol/L (96-108); Cholesterol 176 mg/dL; Estimated Glomerular Filt Rate > 60; Glucose Random 82 mg/dL (60-115); HDL Cholesterol 79 mg/dL; LDL Cholesterol Calculated 86 mg/dl; Potassium 3.9 mmol/L (3.3-5.1); Sodium 144 mmol/L (135-145); Total Protein 6.3 g/dL (6.5-8.0); Triglycerides 55 mg/dL
[2023-02-24 12:53] LABS: Folate 9.6 ng/mL (> or = 4.0); Free T4 (Free Thyroxine) 0.98 ng/dL (0.71-1.85); Thyroid Stimulating Hormone 1.54 uIU/mL (0.32-4.0); Vitamin B12 1042 pg/mL (200-900); Vitamin D 25-OH Total 35.1 ng/mL (>30)
== END 2023-02-24 09:13 | disposition home or self-care (01) ==
LOC: HO.HMGCLDS 09:12
PROVIDERS: PCP Internal Medicine; Visit Provider Internal Medicine
DX: E78.00 Pure hypercholesterolemia, unspecified (principal); E55.9 Vitamin D deficiency, unspecified
CPT/HCPCS: 36415; 80053; 80061; 82306; 82607; 82746; 84439; 84443; 85025

== ENCOUNTER → 2023-04-13 09:10 | Outpatient (REF) | payer OTHER, SELFPAY ==
--- NOTE | ~2023-04-13 | NM_ITS ---
Myocardial perfusion study Indication: Atherosclerotic coronary artery disease to evaluate for myocardial ischemia Technique: The patient was brought in for a Lexiscan perfusion study on 04/13/2023. Patient performed low-level exercise and was injected 0.4 mg of Lexiscan intravenously. Within a minute of injection, 25 mCi of sestamibi was given intravenously. Images were obtained using the SPECT gamma camera interlaced with the gating device. Images were obtained in supine position. Resting perfusion study was performed on 04/14/2023. Patient was administered 25 mCi of sestamibi intravenously at rest. Images were then obtained in supine position. Images obtained with and without CT attenuation. Total DLP 100 mGy-cm. Images were processed with the software and compared side to side in short axis, horizontal long axis and vertical long axis views. Findings: Both stress as well as rest perfusion study are suboptimal due to intense subdiaphragmatic uptake interfering with uptake of the inferior wall. The stress perfusion study showed on both attenuated as well as non attenuated corrected images there is diffusely reduced uptake in all segments of LV myocardium. This is probably due to intense subdiaphragmatic uptake interfering with inferior wall uptake. The gated study shows reduced LV systolic function with calculated LVEF of 41%. LV cavity is mildly dilated size. The gated study shows normal systolic wall thickening and contraction of segments. Resting study shows no change in uptake pattern on resting perfusion study although again there is intense subdiaphragmatic uptake interfering with inferior wall uptake. Gating at rest reveals normal systolic wall motion with ejection fraction at 45%. The findings are consistent with no clear reversible defect although this study is nondiagnostic due to reduced uptake noted in all segments. Subdiaphragmatic uptake. NM/NM cardiolite stress test Impression: 1. Myocardial perfusion imaging study shows nondiagnostic study 2. Gated LVEF is 41%, although visually appears to be prior. Consider echocardiogram 3. Transient ischemic dilatation not present EKG is nondiagnostic for ischemia
--- NOTE | 2023-04-13 09:12 | CA_ITS ---
Acquisition Time: 2023-04-13 09:33:39 Total Exercise Time: 00:02:00 Test Indications: CHEST PAIN Medications: ALPRAZOLAM ASA ATORVASTATIN VALACYCLOVIR Protocol: LEXISCAN Max HR: 141 BPM 88% of Pred: 159 BPM Max BP: 124/068 mmHG Max Work Load: 1.0 METS Pharmacological stress test with Lexiscan injection while sitting and kicking her legs, without anginal symptoms, with isolated PVCs and PACs post Lexiscan, with normotensive response to injection, without EKG changes. Aminophylline 75mg IVP given to reverse Lexiscan. Nuclear images pending. Test reviewed with Dr. Iniguez. Referred By: Angie Hernandez Overread By: VERITO VALDEZ
== END ==
LOC: HO.CARD 09:10
PROVIDERS: PCP Internal Medicine; Visit Provider Internal Medicine
DX: I25.10 Atherosclerotic heart disease of native coronary artery without angina pectoris (principal)
CPT/HCPCS: 78452; 93017; A9500; J0280; J2785

== ENCOUNTER → 2023-05-12 13:37 | Outpatient (REF) | payer OTHER, SELFPAY | LOC: HO.CARD 13:37 | PROVIDERS: Visit Provider Internal Medicine | DX: R07.9 Chest pain, unspecified (principal) | CPT/HCPCS: 93306; Q9957 ==

== ENCOUNTER 2023-05-26 08:51 | Outpatient (REF) | payer OTHER, SELFPAY ==
[2023-05-26 12:38] LABS: Alanine Aminotransferase 21 U/L (0-31); Alkaline Phosphatase 63 U/L (39-117); Anion Gap 11 (12-20); Aspartate Amino Transferase 28 U/L (5-31); Blood Urea Nitrogen 18 mg/dL (9-16); Calcium 9.3 mg/dL (8.4-10.2); Carbon Dioxide 27 mmol/L (22-29); Chloride 108 mmol/L (96-108); Cholesterol 170 mg/dL; Estimated Glomerular Filt Rate > 60; Glucose Random 82 mg/dL (60-115); HDL Cholesterol 83 mg/dL; LDL Cholesterol Calculated 76 mg/dl; Potassium 3.8 mmol/L (3.3-5.1); Sodium 142 mmol/L (135-145); Total Protein 6.6 g/dL (6.5-8.0); Triglycerides 56 mg/dL
== END 2023-05-26 08:52 | disposition home or self-care (01) ==
LOC: HO.HMGCLDS 08:51
PROVIDERS: PCP Internal Medicine; Visit Provider Internal Medicine
DX: E78.00 Pure hypercholesterolemia, unspecified (principal)
CPT/HCPCS: 36415; 80053; 80061

== ENCOUNTER 2023-06-13 15:28 | Outpatient (AMB) | payer OTHER, SELFPAY ==
[2023-06-13 15:31] VITALS: BP 114/72; PULSE 69; O2SAT 99; BMI 25.9
--- NOTE | 2023-06-13 15:31 | MHC.PC.OV ---
Vital Signs 06/13/23 15:31 Height 5 ft 4 in Weight 151 lb BMI 25.9 BP 114/72 Blood Pressure Location Lt brachial Position Sitting Pulse 69 Pulse Source Pulse Oximeter Pulse Oximetry (%) 99 Oxygen Delivery Method Room Air Intake Visit Reasons: 3 month f/u Allergies adhesive [ADHESIVE] Allergy (Intermediate, Verified 06/13/23 15:31) ITCHING Penicillins [PENICILLINS] Allergy (Intermediate, Verified 06/13/23 15:31) RASH Medication List - Last Reconciled 06/13/23 by Angie Hernandez MD alprazolam 0.25 mg PO DAILY PRN aspirin 81 mg PO DAILY atorvastatin 40 mg PO DAILY cholecalciferol (vitamin D3) 50 mcg PO DAILY cyanocobalamin (vitamin B-12) 1,000 mcg PO 2 x a week; cyclobenzaprine 5 mg PO TID PRN valacyclovir mg PO PRN Tobacco use date assessed: 03/06/23 Dental Screening Dental Screen Date: 06/13/23 Did you have a dental visit in the last 12 months?: Yes Did you have a dental problem in the last 6 months where you did not have access to dental care?: No Was dental information given to patient?: Patient has dentist HPI 3 month f/u HPI Details 62-year-old female with obstructive sleep apnea hypercholesterolemia a 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 Patient is here for follow-up. Echocardiogram done April 2023 Normal left ventricular size, thickness, systolic function, and wall motion. The visually estimated ejection fraction is between 55-60%. Diastolic function is normal for age. - Normal right ventricular cavity size and systolic function. - There is mild dilatation of the sinuses of Valsalva measuring 3.61 cm and mild dilatation of the ascending aorta measuring 3.30 Cardiolite stress test done April 2023Myocardial perfusion imaging study shows nondiagnostic study 2. Gated LVEF is 41%, although visually appears to be prior. Consider echocardiogram 3. Transient ischemic dilatation not present low back pain- bending to tie shoes- March [facility] Medical History (Updated 06/13/23 @ 15:56 by Angie Hernandez MD) Abnormal mammogram of right breast Abnormal myocardial perfusion study Anxiety Atypical ductal hyperplasia of right breast Bacterial vaginosis Breast calcification, right Cervical cancer screening Coronary artery disease Diverticular disease Family history of malignant neoplasm of breast Hypercholesterolemia PAC (premature atrial contraction) PVC (premature ventricular contraction) Urge incontinence Vitamin D deficiency Surgical History History of lumpectomy of right breast (~2008) History of myomectomy Hx of section Hx of right breast biopsy Hx of tonsillectomy Family History (Updated 03/06/23 @ 17:09 by Helga Taveras [facility]) Mother Hx of cancer of lung Paternal Aunt HX: breast cancer Maternal Aunt History of esophageal cancer HX: breast cancer Myocardial infarct Father Myocardial infarct Other Substance abuse Social History (Updated 03/06/23 @ 17:39 by Angie Hernandez MD) Housing: House Alcohol intake: current Alcohol intake frequency: holidays/special occasions only Alcohol type: wine Patient Tobacco Use Status: Former Tobacco user Tobacco use type: Cigarette Years Smoked: quit 1998 e-Cigarette/Vaping Use: Never Used Second Hand Smoke Exposure: No Current occupational status: employed Cognitive needs: No Hearing needs: No Vision needs: Yes Female Reproductive History Menstrual Age of Menarche: 13 Questionnaire PHQ-9 Over the last 2 weeks, how often have you been bothered by any of the following problems? 1. Little interest or pleasure in doing things: not at all 2. Feeling down, depressed, or hopeless: not at all 3. Trouble falling or staying asleep, or sleeping too much: not at all 4. Feeling tired or having little energy: not at all 5. Poor appetite or overeating: not at all 6. Feeling bad about yourself - or that you are a failure or have let yourself or your family down: not at all 7. Trouble concentrating on things, such as reading the newspaper or watching television: not at all 8. Moving or speaking so slowly that other people could have noticed. Or the opposite - being so fidgety or restless that you have been moving around a lot more than usual: not at all 9. Thoughts that you would be better off or of hurting yourself in some way: not at all Total score: 0 Depression Screening Interpretation: Negative Source: Developed by Drs. Felipe Dickinson, Jane Howard, Ernesto Gill and colleagues, with an educational juancho from [employer]. Thrive Questionnaire Date Thrive assessed: 03/06/23 AUDIT C Alcohol Use Questionnaire (AUDIT-C) 1. How often do you have a drink containing alcohol?: 2-3 times a week 2. How many drinks containing alcohol do you have on a typical day when you are drinking?: 1 or 2 3. How often do you have six or more drinks on one occasion?: Never Total Score: 3 RUBIN-7 AMB Questionnaire RUBIN-7 Date RUBIN - 7 assessed: 03/06/23 Source: Developed by Drs. Felipe Dickinson, Jane Howard, Ernesto Gill and colleagues, with an educational juancho from [employer]. Physical exam (Primary Care) Vital Signs: Last Vital Signs Pulse 69 06/13/23 15:31 BP 114/72 06/13/23 15:31 Pulse Ox 99 06/13/23 15:31 Oxygen Delivery Method Room Air 06/13/23 15:31 BMI result Body Mass Index 25.9 Tobacco/Smoking Status: Tobacco use Status Tobacco use date assessed 03/06/23 06/13/23 15:34 Patient Tobacco Use Status Former Tobacco user 06/13/23 15:34 Tobacco use type Cigarette 06/13/23 15:34 e-Cigarette/Vaping Use Never Used 06/13/23 15:34 PHQ-9: PHQ-9 Score PHQ-9: Total score 0 06/13/23 15:34 Depression Screening Interpretation: Negative Thrive Assessment: Date of Thrive Assessment Date Thrive assessed 03/06/23 06/13/23 15:34 Const General: alert; No acute distress Eyes Conjunctivae: conjunctivae normal Resp Auscultation: clear to auscultation bilaterally Cardio Rate: regular rate Rhythm: regular rhythm GI Inspection: Yes normal to inspection Extrem General: Yes normal to inspection and No edema Assessment and Plan Assessment & Plan (1) Obstructive sleep apnea: Comment: CPAP use 08/2022 Code(s): G47.33 - Obstructive sleep apnea (adult) (pediatric) Plan: Continue to use the CPAP more than 4 hours a night and benefits from this (2) Hypercholesterolemia: Code(s): E78.00 - Pure hypercholesterolemia, unspecified Plan: Avoid fried foods, chicken skin, eggs, butter margarine, pastries and meat. Be it pork or beef they have a lot of cholesterol LDL goal of less than 70 and triglyceride of less than 150 patient is on atorvastatin 40 mg once a day (3) Atherosclerotic cardiovascular disease: Code(s): I25.10 - Atherosclerotic heart disease of tangirnaq coronary artery without angina pectoris Plan: Control the cholesterol, weight, blood pressure (4) Atypical ductal hyperplasia of right breast: Code(s): N60.91 - Unspecified benign mammary dysplasia of right breast Plan: Continue to do mammogram follow up with Dr. Miller (5) Ascending aorta dilatation: Comment: 04/2023June 2022 Normal left ventricular size, thickness, systolic function, and wall motion. The visually estimated ejection fraction is between 55-60%. Diastolic function is normal for age. - Normal right ventricular cavity size and systolic function. - There is mild dilatation of the sinuses of Valsalva measuring 3.61 cm and mild dilatation of the ascending aorta measuring 3.30 Code(s): I77.810 - Thoracic aortic ectasia Plan: Controlled cholesterol, control blood pressure. repeat April 2024 (6) Low back pain: Code(s): M54.50 - Low back pain, unspecified Orders: Orders XR lumbar spine 2-3V Today M54.50 - Low back pain, unspecified Coding Level of Care Code Est Pt Level 4 (35139) Diagnoses Obstructive sleep apnea G47.33 Hypercholesterolemia E78.00 Atherosclerotic cardiovascular disease I25.10 Atypical ductal hyperplasia of right breast N60.91 Ascending aorta dilatation I77.810 Low back pain M54.50
== END 2023-06-13 16:07 | disposition home or self-care (01) ==
PROVIDERS: PCP Internal Medicine; Visit Provider Internal Medicine
DX: E78.00 Pure hypercholesterolemia, unspecified (principal); G47.33 Obstructive sleep apnea (adult) (pediatric); I25.10 Atherosclerotic heart disease of native coronary artery without angina pectoris; I77.810 Thoracic aortic ectasia; N60.91 Unspecified benign mammary dysplasia of right breast; M54.50 Low back pain, unspecified
CPT/HCPCS: 99214

== ENCOUNTER 2023-06-19 09:04 | Outpatient (REF) | payer OTHER, SELFPAY ==
--- NOTE | ~2023-06-19 | XR_ITS ---
EXAMINATION: XR LUMBOSACRAL SPINE CLINICAL INFORMATION: Low back pain COMPARISON: None available. TECHNIQUE: Three views of the lumbosacral spine. FINDINGS: The vertebral bodies and posterior elements are normal aside from some minimal spondylitic endplate changes at the superior endplate of L2 and inferior endplate of L1. The disc spaces are preserved and the vertebral alignment is normal. The paraspinal soft tissues are normal. XR/XR lumbar spine 2-3V IMPRESSION: Minimal spondylitic endplate changes as described above.
== END 2023-06-19 09:05 | disposition home or self-care (01) ==
LOC: HO.XRAY 09:04
PROVIDERS: PCP Internal Medicine; Visit Provider Internal Medicine
DX: M54.50 Low back pain, unspecified (principal)
CPT/HCPCS: 72100

== ENCOUNTER 2023-07-10 12:42 | Outpatient (REF) | payer OTHER, SELFPAY ==
--- NOTE | ~2023-07-10 | MR_ITS ---
EXAMINATION: MR BREAST WITHOUT AND WITH CONTRAST, BILATERAL CLINICAL INFORMATION: Unspecified benign mammary dysplasia of right breast. The report of previous mammogram indicates right breast surgery for atypia 2007. COMPARISON: Portions of a previous study 06/01/2022. Mammography (nondiagnostic monitor review): 11/29/2022. TECHNIQUE: A 1.5 T system and a dedicated breast coil. T1-weighted sequences without fat-saturation were obtained prior to the administration of contrast. Fat-saturated T1 and T2-weighted sequences were also acquired. The patient received 7 mL of IV gadolinium-based contrast, Gadavist. Multiple sequential dynamic T1-weighted sequences were obtained through both breasts with fat-saturation. Subtracted images were reviewed. CAD postprocessing with 3-D reconstructions, maximum intensity projections and kinetic analysis was performed by the interpreting radiologist at an independent workstation and reviewed as a portion of this exam. FINDINGS: Amount of Remaining Fibroglandular Signal: There is heterogeneous fibroglandular tissue, which may obscure small masses(ACR BI-RADS breast composition category C).* Background Parenchymal Enhancement: Mild Symmetry of Background Enhancement: Symmetric RIGHT BREAST: There are no suspicious findings. Masses: There are no suspicious enhancing masses. Non-mass Enhancement: There is no suspicious non-mass enhancement. Focus: There are no suspicious enhancing foci. Non-enhancing Findings: Associated findings: There are no suspicious associated findings. Susceptibility from previous tissue marker placement. Kinetic Curve Assessment: Initial Phase: There are no suspicious areas of color signal. Delayed Phase: There are no areas of washout kinetics. LEFT BREAST: There are no suspicious findings. Masses: There are no suspicious enhancing masses. Non-mass Enhancement: There is no suspicious non-mass enhancement. Focus: There are no suspicious enhancing foci. Non-enhancing Findings: Associated Findings: There are no suspicious associated findings. There is T1 hyperintensity behind the left nipple prior to contrast. This is likely related to proteinaceous or hemorrhagic material within some ducts. This does not require any further evaluation. Kinetic Curve Assessment: Initial Phase: There are no areas of suspicious color signal. Delayed Phase: There are no areas of washout kinetics. The axillary lymph nodes are morphologically normal. No suspicious internal mammary lymph nodes are seen. No suspicious abnormality in the visualized portions of chest or abdomen. Sharply circumscribed T2 intense round masses at the far left lateral aspect of the left lobe of the liver and in hepatic segment 4A. No change since at least 2018. The smaller does not enhance. The larger left lobe cannot be characterized postcontrast due to motion. These are likely cysts and do not require any further evaluation. MR/MR breast BI wo/w con IMPRESSION: 1. No MR evidence of malignancy. 2. No suspicious interval change. ASSESSMENT: Right Breast: ACR BI-RADS 2: Benign finding. Left Breast: ACR BI-RADS 2: Benign finding. RECOMMENDATIONS: Continue screening.
[2023-07-10] MEDS: gadobutroL 7.5 ML VIAL IVPUSH (13:58)
== END 2023-07-10 12:43 | disposition home or self-care (01) ==
LOC: HO.MRI 12:42
PROVIDERS: PCP Internal Medicine; Visit Provider Surgery
DX: N60.91 Unspecified benign mammary dysplasia of right breast (principal); Z80.3 Family history of malignant neoplasm of breast
CPT/HCPCS: 77049; A9585

== ENCOUNTER 2023-07-20 09:10 | Outpatient (AMB) | payer OTHER, SELFPAY ==
--- NOTE | 2023-07-20 10:02 | AM.OFFVISNUR ---
Intake Vital Signs 07/20/23 10:17 BP 112/80 Blood Pressure Location Rt brachial Position Sitting Respiration 16 Pulse 71 Pulse Source Auscultation Pulse Oximetry (%) 96 Oxygen Delivery Method Room Air Intake Visit Reasons: EKG Intake Note: Patient here for EKG after having palpitations and midsternal discomfort yesterday. Patient reports feeling better today with no recurrence of symptoms. Strategic Partnership Manager Required: No Accompanied by: Self / Same As Patient Allergies adhesive [ADHESIVE] Allergy (Intermediate, Verified 06/13/23 15:31) ITCHING Penicillins [PENICILLINS] Allergy (Intermediate, Verified 06/13/23 15:31) RASH Followed by:: Dr. Aranda Nursing Note EKG was reviewed by Dr. Aranda. MD said EKG was normal. NSR with HR 71. Vitals are stable. HR is regular rate and rhythm. Lungs are CTAB. Patient denies chest pain, denies shortness of breath, and denies further palpitations. Patient reports feeling much improved since yesterday. Patient was educated to call the office or to call 911 and go to the ER if symptoms happen again, or if she experiences any chest pain, dyspnea, palpitations, or syncope. Patient verbalized understanding and agreed with plan. Patient has f/u appointment on 08/10 and is aware. Office Procedures EKG [id number], Complete Coding Level of Care Code Est Pt Level 1 (76196) CPT Codes EKG - CPT: 35032-[id number], Complete ([id number]) Time Spent (min) 20 Comment EKG, vitals, assessment, and education. Assessment & Plan Assessment & Plan Plan follow up appt scheduled for 08/10. Patient educated to go to the ER or call the office if symptoms return. verbalized understanding.
[2023-07-20 10:17] VITALS: BP 112/80; PULSE 71; RESP 16; O2SAT 96
== END 2023-07-20 10:18 | disposition home or self-care (01) ==
PROVIDERS: PCP Internal Medicine; Visit Provider Internal Medicine
DX: R94.31 Abnormal electrocardiogram [ECG] [EKG] (principal)
CPT/HCPCS: 93010

== ENCOUNTER → 2023-07-20 09:10 | Outpatient (BNVA) | payer OTHER, SELFPAY | PROVIDERS: PCP Internal Medicine; Visit Provider Internal Medicine | DX: R00.2 Palpitations (principal); R07.9 Chest pain, unspecified | CPT/HCPCS: 93005 ==

== ENCOUNTER 2023-08-10 08:42 | Outpatient (AMB) | payer OTHER, SELFPAY ==
[2023-08-10 08:44] VITALS: BP 118/72; PULSE 58; BMI 26.0
--- NOTE | 2023-08-10 08:44 | MHC.OFFVIS ---
Intake Vital Signs 08/10/23 08:44 Height 5 ft 4 in Weight 151 lb 3.794 oz BMI 26.0 BP 118/72 Blood Pressure Location Lt brachial Position Sitting Pulse 58 Intake Visit Reasons: 1 yr f/up Intake Note: 1 year follow up Habilitation Assistant Required: No Accompanied by: Spouse Allergies adhesive [ADHESIVE] Allergy (Intermediate, Verified 08/10/23 08:47) ITCHING Penicillins [PENICILLINS] Allergy (Intermediate, Verified 08/10/23 08:47) RASH Medication List - Last Reconciled 08/10/23 by Castro Aranda MD alprazolam 0.25 mg PO DAILY PRN aspirin 81 mg PO DAILY atorvastatin 40 mg PO DAILY cholecalciferol (vitamin D3) 50 mcg PO DAILY cyanocobalamin (vitamin B-12) 1,000 mcg PO 2 x a week; cyclobenzaprine 5 mg PO TID PRN valacyclovir mg PO PRN HPI HPI Comments History of Present Illness Details Kyung returns for follow-up. To recall, she was having palpitations that led to a stress test. This showed possible apical ischemia leading to a CTA. She is being treated for stable CAD. Otherwise, obstructive sleep apnea on CPAP. She seems to have a lot of anxiety at baseline. Recently had an episode where she felt that the heart was beating like drums. However, EKG at that time was essentially normal. No exertional chest pain or in fact anything cardiac sounding all. Seems to be getting along okay apart from being anxious. [facility] Medical History (Updated 06/13/23 @ 15:56 by Angie Hernandez MD) PVC (premature ventricular contraction) PAC (premature atrial contraction) Atypical ductal hyperplasia of right breast Abnormal mammogram of right breast Breast calcification, right Abnormal myocardial perfusion study Family history of malignant neoplasm of breast Bacterial vaginosis Cervical cancer screening Diverticular disease Coronary artery disease Vitamin D deficiency Urge incontinence Hypercholesterolemia Anxiety Surgical History History of myomectomy Hx of right breast biopsy History of lumpectomy of right breast (~2008) Hx of section Hx of tonsillectomy Family History Mother Hx of cancer of lung Paternal Aunt HX: breast cancer Maternal Aunt History of esophageal cancer HX: breast cancer Myocardial infarct Father Myocardial infarct Other Substance abuse Social History Housing: House Alcohol intake: current Alcohol intake frequency: holidays/special occasions only Alcohol type: wine Patient Tobacco Use Status: Former Tobacco user Tobacco use type: Cigarette Years Smoked: quit 1998 e-Cigarette/Vaping Use: Never Used Second Hand Smoke Exposure: No Current occupational status: employed Cognitive needs: No Hearing needs: No Vision needs: Yes Female Reproductive History Menstrual Age of Menarche: 13 Review of Systems Const Denies chills, Denies fatigue, Denies fever(s), Denies frequent falls, Denies weakness, Denies weight gain and Denies weight loss ENT Denies dizziness Card Denies chest pain, Denies leg edema, Denies lightheadedness, Denies palpitations, Denies dyspnea, Denies dyspnea on exertion, Denies orthopnea and Denies other (Loss of consciousness) Resp Denies cough, Denies dyspnea and Denies dyspnea on exertion GI Denies hematochezia and Denies change in bowel habits Musc Denies abnormal gait, Denies muscle weakness, Denies numbness, Denies radiating pain into limb and Denies tingling Neuro Denies abnormal gait, Denies dizziness, Denies frequent falls, Denies numbness, Denies tingling and Denies weakness Endo Denies fatigue and Denies palpitations Physical Exam Vital Signs: Last Vital Signs Pulse 58 08/10/23 08:44 BP 118/72 08/10/23 08:44 BMI result Body Mass Index 26.0 Const General: comfortable and no acute distress Orientation/consciousness: patient oriented x3 HEENT Other: Unremarkable Head: Yes normal to inspection Neck Neck: Yes normal visual inspection Chest Chest palpation & inspection: normal inspection of the chest Resp Auscultation: clear to auscultation bilaterally Cardio Palpation: normal PMI Heart sounds: S1 normal heart sound present, S2 normal heart sound present, no gallops, no murmurs and no rubs GI Palpation (GI): Soft to palpation Back/Spine/Pelvis Other: unremarkable Skin General skin exam: no rashes or lesions noted Neuro General: patient oriented x3 Extrem General: Yes normal to inspection Psych Mental Status: mental status grossly normal Assessment & Plan Assessment & Plan (1) Abnormal myocardial perfusion study: Code(s): R94.39 - Abnormal result of other cardiovascular function study (2) Atherosclerotic cardiovascular disease: Code(s): I25.10 - Atherosclerotic heart disease of tolowa dee-ni' coronary artery without angina pectoris (3) PAC (premature atrial contraction): Code(s): I49.1 - Atrial premature depolarization (4) PVC (premature ventricular contraction): Code(s): I49.3 - Ventricular premature depolarization (5) Obstructive sleep apnea: Comment: CPAP use 08/2022 Code(s): G47.33 - Obstructive sleep apnea (adult) (pediatric) Plan Cardiac studies reviewed. Echocardiogram with normal LVEF, 60-65% and otherwise unremarkable. Myocardial perfusion imaging study in the past reported to have possible anterior/apical ischemia. Coronary CTA was suboptimal due to motion artifact. No significant coronary artery calcification. No significant stenosis in the left main, proximal LAD, proximal circumflex and proximal right coronary artery. Remainder were not seen well due to motion. Subtle hypo enhancement at the apex due to artifact or old infarct. Holter in the past with sinus rhythm, sinus tachycardia, rare supraventricular/ventricular ectopy. Still not entirely clear if she truly had a small infarct in the apex versus being artifactual as she also apparently has dense breast tissue per patient. Clinically, absolutely no symptoms like angina. Lot of anxiety related symptoms but nothing else of concern. She has no physical limitations whatsoever. May remain on aspirin and statins. With regard to palpitations they are fairly infrequent and happen once a few months back but no recurrence. If they do recur, then consider Holter monitoring. Continue CPAP for LEEANNE. Discussed with significant other who came for appointment. Total time including review of data, counseling, documentation -31 minutes. Coding Level of Care Code Est Pt Level 4 (45048) Diagnoses Abnormal myocardial perfusion study R94.39 Atherosclerotic cardiovascular disease I25.10 PAC (premature atrial contraction) I49.1 PVC (premature ventricular contraction) I49.3 Obstructive sleep apnea G47.33
== END 2023-08-10 09:10 | disposition home or self-care (01) ==
PROVIDERS: PCP Internal Medicine; Visit Provider Internal Medicine
DX: R94.39 Abnormal result of other cardiovascular function study (principal); I25.10 Atherosclerotic heart disease of native coronary artery without angina pectoris; I49.1 Atrial premature depolarization; I49.3 Ventricular premature depolarization; G47.33 Obstructive sleep apnea (adult) (pediatric)
CPT/HCPCS: 99214

== ENCOUNTER → 2023-08-10 08:42 | Outpatient (BNVA) | payer OTHER, SELFPAY | PROVIDERS: PCP Internal Medicine; Visit Provider Internal Medicine ==

== ENCOUNTER 2023-08-11 09:30 | Outpatient (AMB) | payer OTHER, SELFPAY ==
--- NOTE | 2023-08-11 09:47 | MHC.OFFVIS ---
Intake Vital Signs 08/11/23 09:54 Height 5 ft 4 in Weight 151 lb 8 oz BMI 26.0 BP 118/72 Blood Pressure Location Lt brachial Position Sitting Intake Visit Reasons: 6 mth follow up breast exam Intake Note: Patient is seen in office for 6 month follow up visit, breast exam. Patient c/o: denies any concerns regarding the breast Agricultural Purchasing Agent Required: No First Aid Teacher: First Aid Teacher Present Accompanied by: Self / Same As Patient Allergies adhesive [ADHESIVE] Allergy (Intermediate, Verified 08/11/23 09:55) ITCHING Penicillins [PENICILLINS] Allergy (Intermediate, Verified 08/11/23 09:55) RASH HPI HPI Comments History of Present Illness Details 62-year-old female patient, former patient of Dr. Parker and eNreyda, returning for a high risk breast follow-up examination. She has a prior history of a right lumpectomy for atypical ductal hyperplasia in 2007. In 2015 she underwent a MR guided biopsy of the right breast which was benign. An abnormal cluster of calcifications was identified in the right breast in November 2021. She subsequently underwent a stereotactic guided core biopsy which also was benign. She has a family history of breast cancer in a maternal aunt identified at the age of 50 with recurrence at the age of 70. She also has a paternal aunt with breast cancer the age of 62. Her [place]uzick remaining lifetime risk of breast cancer was determined to be 26% placing her at a high risk for breast cancer. She has been undergoing twice yearly breast examinations, yearly mammograms and yearly breast MRIs. Her last breast MRI of 07/10/2023 revealed no MRI specific suspicious changes (BI-RADS 2 bilaterally). Mammogram of 11/29/2022 no mammographic evidence of malignancy (BI-RADS 2). She feels well and denies any ongoing breast symptoms on either side. Previous genetic testing reported on 08/29/2020 revealed no deleterious mutations or variants of unknown significance. She is , never breast fed, menarche age 13, menopause age 48. [facility] Medical History PVC (premature ventricular contraction) PAC (premature atrial contraction) Atypical ductal hyperplasia of right breast Abnormal mammogram of right breast Breast calcification, right Abnormal myocardial perfusion study Family history of malignant neoplasm of breast Bacterial vaginosis Cervical cancer screening Diverticular disease Coronary artery disease Vitamin D deficiency Urge incontinence Hypercholesterolemia Anxiety Surgical History History of myomectomy Hx of right breast biopsy History of lumpectomy of right breast (~2008) Hx of section Hx of tonsillectomy Family History Mother Hx of cancer of lung Paternal Aunt HX: breast cancer Maternal Aunt History of esophageal cancer HX: breast cancer Myocardial infarct Father Myocardial infarct Other Substance abuse Social History Housing: House Alcohol intake: current Alcohol intake frequency: holidays/special occasions only Alcohol type: wine Patient Tobacco Use Status: Former Tobacco user Tobacco use type: Cigarette Years Smoked: quit 1998 e-Cigarette/Vaping Use: Never Used Second Hand Smoke Exposure: No Current occupational status: employed Cognitive needs: No Hearing needs: No Vision needs: Yes Female Reproductive History Menstrual Age of Menarche: 13 Review of Systems Const All systems reviewed & are unremarkable except as noted in HPI and below Card Denies dyspnea Resp Denies chest congestion, Denies cough, Denies hemoptysis and Denies dyspnea Denies nipple discharge Skin/Breast Denies bleeding lesions, Denies breast swelling, Denies breast skin changes, Denies breast pain, Denies breast mass, Denies change in breast shape and Denies nipple discharge Brian/Lymph Denies lymphadenopathy Physical Exam Vital Signs: Last Vital Signs BP 118/72 08/11/23 09:54 BMI result Body Mass Index 26.0 Const General: no acute distress and well developed Nutritional Appearance: well nourished Orientation/consciousness: patient oriented x3 Limitations: no limitations Chest Other: Left breast: No skin change, no nipple retraction, no nipple discharge, no palpable mass, no enlarged lymph nodes. Right breast: No skin change, no nipple retraction, no nipple discharge, no palpable mass, no enlarged lymph nodes, well-healed incision in the upper outer quadrant Skin General skin exam: no rashes or lesions noted Neuro General: patient oriented x3 Extrem General: No edema Assessment & Plan Assessment & Plan (1) Family history of malignant neoplasm of breast: Code(s): Z80.3 - Family history of malignant neoplasm of breast (2) Atypical ductal hyperplasia of right breast: Code(s): N60.91 - Unspecified benign mammary dysplasia of right breast (3) Abnormal mammogram of right breast: Code(s): R92.8 - Other abnormal and inconclusive findings on diagnostic imaging of breast Plan 62-year-old female patient determined to be at high risk for breast cancer due to both previous history of atypical ductal hyperplasia of the right breast and a family history in a maternal and paternal aunt, found to have a [facility] risk of breast cancer in her remaining life at 28%. Examination today revealed no suspicious findings in either breast. Her most recent breast MRI of 07/10/2023 revealed no MR specific suspicious findings (BI-RADS 2 bilaterally). Mammogram of 12/09/2022 revealed no suspicious findings (BI-RADS 2). She will be due for mammogram in November 2023 and MRI in May 2024. She should return in 6 months for follow-up breast examination, sooner p.r.n.. Coding Level of Care Code Est Pt Level 3 (39662) Diagnoses Family history of malignant neoplasm of breast Z80.3 Atypical ductal hyperplasia of right breast N60.91 Abnormal mammogram of right breast R92.8
[2023-08-11 09:54] VITALS: BP 118/72; BMI 26.0
== END 2023-08-11 10:11 | disposition home or self-care (01) ==
PROVIDERS: Visit Provider Surgery
DX: N60.91 Unspecified benign mammary dysplasia of right breast (principal); R92.8 Other abnormal and inconclusive findings on diagnostic imaging of breast; Z80.3 Family history of malignant neoplasm of breast
CPT/HCPCS: 99213

== ENCOUNTER → 2023-08-11 09:30 | Outpatient (BNVA) | payer OTHER, SELFPAY | PROVIDERS: Visit Provider Surgery ==

== ENCOUNTER 2023-09-28 15:00 | Outpatient (RCR) | payer OTHER, SELFPAY ==
--- NOTE | 2023-08-01 10:59 | MHC.PT.EP ---
[facility] [place] Office [place] Office [place] Office [address] Christy Hopper [address] [phone] F: [phone] F: [phone] F: [phone] F: [phone] Physical Therapy Plan of Care Date of Evaluation: 08/01/23 Date of Surgery: Diagnosis: LBP Assessment: 62 y/o female referred to PT with LBP. S/s consistent with lumbar dysfunction and postural dysfunction resulting in pain and difficulty with bending, squatting, helping 23 y/o daughter with ADL's,, shaving legs, and lifting secondary to decreased lumbar AROM, decreased hip/core strength, decreased piriformis length, and impaired postural awareness. Recommend PT 2x/week for 5 weeks to address impairments, implement HEP, and optimize functional mobility. Frequency and Duration: The patient will be seen 2x/week for 5 weeks Short Term Goals: 3 weeks Compliant with HEP Pt will be able to demonstrate TrA activation without cues in hooklying and in standing Shelter Goals: 5 weeks I with HEP and self management of sx Pt will be able to bend to tie shoes with pain < 3/10 Pt will improve hip strength by one MMT grade to faciliate ADL's Treatment Plan: Modalities to reduce pain, spasms and effusion. Manual therapy to restore motion and function. Therapeutic exercise to improve strength and flexibility. Neuromuscular re-education for posture and balance. Therapeutic activities to return to functional activities of daily living. Electronically signed by: Jennifer Sheppard PT Please sign and return to therapist. Thank you for your referral.
--- NOTE | 2023-09-28 16:06 | MHC.PT.DC ---
[facility] [place] Office [place] Office [place] Office [address] Christy Hopper [address] [phone] F: [phone] F: [phone] F: [phone] F: [phone] Physical Therapy Discharge Report Diagnosis: LBP Date of Surgery: Date of Evaluation: 08/01/23 Date of Discharge: 09/28/23 Treatments to Date: 12 Cancellations to Date: 0 No Shows to Date: 0 Discharge Status: Achieved Goals Improved Function Independent with HEP Discharge Summary: We reviewed all exercises and pt demonstrates good technique and without pain. Trial of added band with glut med in standing, however she felt it more in TFL therefore no resistance yet. Educated pt on how to progress resistance at home. She is appropriate for d/c secondary to meeting all goals and I with HEP. No further questions at this time. Electronically signed by: Jennifer Sheppard PT Please sign and return to therapist. Thank you for your referral.
== END 2023-09-28 16:07 | disposition home or self-care (01) ==
LOC: HO.PT 15:00
PROVIDERS: PCP Internal Medicine; Visit Provider Internal Medicine
DX: M54.50 Low back pain, unspecified (principal)
CPT/HCPCS: 97110; 97112; 97161

== ENCOUNTER 2023-10-24 09:22 | Outpatient (AMB) | payer OTHER, SELFPAY ==
--- NOTE | 2023-10-24 09:26 | A.OFFVIS_ITS ---
Intake Vital Signs 10/24/23 09:28 Height 5 ft 4 in Weight 146 lb 9 oz BMI 25.2 BP 116/68 Blood Pressure Location Lt brachial Position Sitting Respiration 16 Pulse 72 Pulse Source Pulse Oximeter Pulse Oximetry (%) 98 Oxygen Delivery Method Room Air Intake Visit Reasons: 1 yr follow up appt - Confirmed t/CW Intake Note: Pt presents to the office for a one year follow up for LEEANNE. Transplanter Orchid Required: No Allergies adhesive [ADHESIVE] Allergy (Intermediate, Verified 10/24/23 09:31) ITCHING Penicillins [PENICILLINS] Allergy (Intermediate, Verified 10/24/23 09:31) RASH HPI HPI Comments History of Present Illness Details 62 y/o female patient presents for follo w up of LEEANNE on CPAP. CPAP compliance and therapy response (07/21/23-10/18/23) reviewed. Pt is on CPAP at [id number]. Usage days 94%, average usage hours 7 hours. The residual AHI was 0.6. She sleeps well with CPAP, and feels better in the morning. Pt states that palpitation has resolved. Denies daytime sleepiness. She has a new CPAP in June,. [facility] Medical History PVC (premature ventricular contraction) PAC (premature atrial contraction) Atypical ductal hyperplasia of right breast Abnormal mammogram of right breast Breast calcification, right Abnormal myocardial perfusion study Family history of malignant neoplasm of breast Bacterial vaginosis Cervical cancer screening Diverticular disease Coronary artery disease Vitamin D deficiency Urge incontinence Hypercholesterolemia Anxiety Surgical History History of myomectomy Hx of right breast biopsy History of lumpectomy of right breast (~2008) Hx of section Hx of tonsillectomy Family History Mother Hx of cancer of lung Paternal Aunt HX: breast cancer Maternal Aunt History of esophageal cancer HX: breast cancer Myocardial infarct Father Myocardial infarct Other Substance abuse Social History Housing: House Alcohol intake: current Alcohol intake frequency: holidays/special occasions only Alcohol type: wine Patient Tobacco Use Status: Former Tobacco user Tobacco use type: Cigarette Years Smoked: quit 1998 e-Cigarette/Vaping Use: Never Used Second Hand Smoke Exposure: No Current occupational status: employed Cognitive needs: No Hearing needs: No Vision needs: Yes Female Reproductive History Menstrual Age of Menarche: 13 Review of Systems Const All systems reviewed & are unremarkable except as noted in HPI and below ENT Reports Normal hearing present Neuro Reports Normal hearing present Physical Exam Vital Signs: Last Vital Signs Pulse 72 10/24/23 09:28 Resp 16 10/24/23 09:28 BP 116/68 10/24/23 09:28 Pulse Ox 98 10/24/23 09:28 Oxygen Delivery Method Room Air 10/24/23 09:28 BMI result Body Mass Index 25.2 Const General: cooperative and healthy appearing Nutritional Appearance: average body habitus Orientation/consciousness: patient oriented x3 Limitations: no limitations Resp Effort & Inspection: normal respiratory effort and able to speak in complete sentences Neuro General: patient oriented x3, gait normal and moves all extremities Cranial nerves: Yes Bilaterally intact EOM present, Yes Normal facial strength present, Yes Midline tongue present, Yes Symmetric palate elevation present, Yes Normal hearing present, Yes Ability to bilaterally rotate head present and Yes Ability to bilaterally elevate shoulders present Cognition (Neuro): normal cognition Gait exam (Neuro): Normal gait present Psych Appearance: well kempt Mental Status: mental status grossly normal Speech and movement: Normal speech and movement present Affect: normal affect Attitude: cooperative Assessment & Plan Assessment & Plan (1) Obstructive sleep apnea: Comment: CPAP use 08/2022 Code(s): G47.33 - Obstructive sleep apnea (adult) (pediatric) Plan Continue to use CPAP at [id number] nightly as pt has experienced good clinical effect from use. Advised patient to clean mask and tubing regularly. Encouraged patient to do daily exercise. Pt may call for any new concerns or worsening symtpoms. Coding Level of Care Code Est Pt Level 3 (70855) Diagnoses Obstructive sleep apnea G47.33
[2023-10-24 09:28] VITALS: BP 116/68; PULSE 72; RESP 16; O2SAT 98; BMI 25.2
== END 2023-10-24 09:54 | disposition home or self-care (01) ==
PROVIDERS: Visit Provider Nurse Practitioner Family
DX: G47.33 Obstructive sleep apnea (adult) (pediatric) (principal)
CPT/HCPCS: 99213

== ENCOUNTER → 2023-10-24 09:22 | Outpatient (BNVA) | payer OTHER, SELFPAY | PROVIDERS: Visit Provider Nurse Practitioner Family ==

== ENCOUNTER 2024-01-06 10:06 | Outpatient (REF) | payer OTHER, SELFPAY ==
--- NOTE | ~2024-01-06 | MM_ITS ---
EXAMINATION: MM SCREENING DIGITAL BREAST TOMOSYNTHESIS, BILATERAL CLINICAL INFORMATION: Screening. Asymptomatic. The patient is status post prior right breast surgery yielding atypical ductal hyperplasia. The patient reports that she has been BRCA mutation testing and is negative. COMPARISON: Mammography: This study is compared with prior exams dating back to 2019. TECHNIQUE: Digital breast tomosynthesis is performed in both the craniocaudal and mediolateral oblique views along with computer-aided detection (CAD). Synthesized 2D images are generated from the tomosynthesis. FINDINGS: The breasts are heterogeneously dense, which may obscure small masses (ACR BI-RADS breast composition Category c). There are no significant masses, abnormal calcifications, or other abnormalities. There are 2 tissue markers in the superior aspect of the right breast from prior benign stereotactic biopsies. There are few, coarse, benign calcifications in the upper outer quadrant of the left breast. MM/MM tomosynthesis screening BI IMPRESSION: No mammographic evidence of malignancy. ASSESSMENT: BI-RADS BI-RADS 2 - Benign Findings RECOMMENDATION: Routine annual mammography screening. 1 year F/U This examination should not preclude the clinical evaluation of a suspicious palpable abnormality. This patient's information was entered into a reminder system with a target due date for their next mammogram.
== END 2024-01-06 10:07 | disposition home or self-care (01) ==
LOC: HO.MAMMO 10:06
PROVIDERS: PCP Internal Medicine; Visit Provider Internal Medicine
DX: Z12.31 Encounter for screening mammogram for malignant neoplasm of breast (principal)
CPT/HCPCS: 77063; 77067

== ENCOUNTER → 2024-01-06 10:30 | Outpatient (BNV) | payer OTHER, SELFPAY | PROVIDERS: PCP Internal Medicine; Visit Provider Radiology Diagnostic Radiology | DX: Z12.31 Encounter for screening mammogram for malignant neoplasm of breast (principal) | CPT/HCPCS: 77063; 77067 ==

== ENCOUNTER 2024-02-09 09:45 | Outpatient (AMB) | payer OTHER, SELFPAY ==
--- NOTE | 2024-02-09 09:51 | MHC.OFFVIS ---
Intake Vital Signs 02/09/24 09:56 Height 5 ft 4 in Weight 150 lb BMI 25.7 BP 116/59 L Blood Pressure Location Lt brachial Position Sitting Pulse 71 Intake Visit Reasons: 6 mth follow up breast exam Intake Note: Patient is seen in office for 6 month follow up visit, breast exam. 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 Accompanied by: Self / Same As Patient Allergies adhesive [ADHESIVE] Allergy (Intermediate, Verified 02/09/24 09:58) ITCHING Penicillins [PENICILLINS] Allergy (Intermediate, Verified 02/09/24 09:58) RASH Medication List - Last Reconciled 02/09/24 by Rolando Melendez MD alprazolam 0.25 mg PO DAILY PRN aspirin 81 mg PO DAILY atorvastatin 40 mg PO DAILY cholecalciferol (vitamin D3) 50 mcg PO DAILY cyanocobalamin (vitamin B-12) 1,000 mcg PO 2 x a week; cyclobenzaprine 5 mg PO TID PRN valacyclovir mg PO PRN HPI HPI Comments History of Present Illness Details 63-year-old female patient, former patient of Dr. Parker and Nereyda, returning for a high risk breast follow-up examination. She has a prior history of a right lumpectomy for atypical ductal hyperplasia in 2007. In 2015 she underwent a MR guided biopsy of the right breast which was benign. An abnormal cluster of calcifications was identified in the right breast in November 2021. She subsequently underwent a stereotactic guided core biopsy which also was benign. She has a family history of breast cancer in a maternal aunt identified at the age of 50 with recurrence at the age of 70. She also has a paternal aunt with breast cancer the age of 62. Her [facility] remaining lifetime risk of breast cancer was determined to be 26% placing her at a high risk for breast cancer. She has been undergoing twice yearly breast examinations, yearly mammograms and yearly breast MRIs. Her last breast MRI of 07/10/2023 revealed no MRI specific suspicious changes (BI-RADS 2 bilaterally). Mammogram of 01/06/2024 revealed no mammographic evidence of malignancy (BI-RADS 2).. She feels well and denies any ongoing breast symptoms on either side. Previous genetic testing reported on 08/29/2020 revealed no deleterious mutations or variants of unknown significance. She is , never breast fed, menarche age 13, menopause age 48. [facility] Medical History PVC (premature ventricular contraction) PAC (premature atrial contraction) Atypical ductal hyperplasia of right breast Abnormal mammogram of right breast Breast calcification, right Abnormal myocardial perfusion study Family history of malignant neoplasm of breast Bacterial vaginosis Cervical cancer screening Diverticular disease Coronary artery disease Vitamin D deficiency Urge incontinence Hypercholesterolemia Anxiety Surgical History History of myomectomy Hx of right breast biopsy History of lumpectomy of right breast (~2008) Hx of section Hx of tonsillectomy Family History Mother Hx of cancer of lung Paternal Aunt HX: breast cancer Maternal Aunt History of esophageal cancer HX: breast cancer Myocardial infarct Father Myocardial infarct Other Substance abuse Social History Housing: House Alcohol intake: current Alcohol intake frequency: holidays/special occasions only Alcohol type: wine Patient Tobacco Use Status: Former Tobacco user Tobacco use type: Cigarette Years Smoked: quit 1998 e-Cigarette/Vaping Use: Never Used Second Hand Smoke Exposure: No Current occupational status: employed Cognitive needs: No Hearing needs: No Vision needs: Yes Female Reproductive History Menstrual Age of Menarche: 13 Review of Systems Const All systems reviewed & are unremarkable except as noted in HPI and below Card Denies dyspnea Resp Denies chest congestion, Denies cough, Denies hemoptysis and Denies dyspnea Denies nipple discharge Skin/Breast Denies bleeding lesions, Denies breast swelling, Denies breast skin changes, Denies breast pain, Denies breast mass, Denies change in breast shape and Denies nipple discharge Brian/Lymph Denies lymphadenopathy Physical Exam Vital Signs: Last Vital Signs Pulse 71 02/09/24 09:56 BP 116/59 L 02/09/24 09:56 BMI result Body Mass Index 25.7 Const General: no acute distress and well developed Nutritional Appearance: well nourished Orientation/consciousness: patient oriented x3 Limitations: no limitations Chest Other: Left breast: No skin change, no nipple retraction, no nipple discharge, no palpable mass, no enlarged lymph nodes. Right breast: No skin change, no nipple retraction, no nipple discharge, no palpable mass, no enlarged lymph nodes, well-healed incision in the upper outer quadrant Skin General skin exam: no rashes or lesions noted Neuro General: patient oriented x3 Extrem General: No edema Assessment & Plan Assessment & Plan (1) Atypical ductal hyperplasia of right breast: Code(s): N60.91 - Unspecified benign mammary dysplasia of right breast (2) At high risk for breast cancer: Code(s): Z91.89 - Other specified personal risk factors, not elsewhere classified (3) Family history of malignant neoplasm of breast: Code(s): Z80.3 - Family history of malignant neoplasm of breast (4) Abnormal mammogram of right breast: Code(s): R92.8 - Other abnormal and inconclusive findings on diagnostic imaging of breast Plan 63-year-old female patient determined to be at high risk for breast cancer due to both previous history of atypical ductal hyperplasia of the right breast and a family history in a maternal and paternal aunt, found to have a [facility] risk of breast cancer in her remaining life at 28%. Examination today revealed no suspicious findings in either breast. Her most recent breast MRI of 07/10/2023 revealed no MR specific suspicious findings (BI-RADS 2 bilaterally). Mammogram of 01/06/2024 no mammographic evidence of malignancy (BI-RADS 2). She will be due for a follow-up breast MRI in May 2024. She should return in 6 months for follow-up breast examination, sooner p.r.n.. Orders: Orders MR breast BI wo/w con 07/11/24 N60.91 - Unspecified benign mammary dysplasia of right breast, Z91.89 - Other specified personal risk factors, not elsewhere classified Coding Level of Care Code Est Pt Level 3 (47698) Diagnoses Atypical ductal hyperplasia of right breast N60.91 At high risk for breast cancer Z91.89 Family history of malignant neoplasm of breast Z80.3 Abnormal mammogram of right breast R92.8
[2024-02-09 09:56] VITALS: BP 116/59; PULSE 71; BMI 25.7
== END 2024-02-09 10:07 | disposition home or self-care (01) ==
PROVIDERS: PCP Internal Medicine; Visit Provider Surgery
DX: N60.91 Unspecified benign mammary dysplasia of right breast (principal); R92.8 Other abnormal and inconclusive findings on diagnostic imaging of breast; Z85.3 Personal history of malignant neoplasm of breast; Z80.3 Family history of malignant neoplasm of breast
CPT/HCPCS: 99213

== ENCOUNTER → 2024-02-09 09:45 | Outpatient (BNVA) | payer OTHER, SELFPAY | PROVIDERS: PCP Internal Medicine; Visit Provider Surgery | DX: Z80.3 Family history of malignant neoplasm of breast (principal); N60.91 Unspecified benign mammary dysplasia of right breast; R92.8 Other abnormal and inconclusive findings on diagnostic imaging of breast ==

== ENCOUNTER 2024-03-07 15:57 | Outpatient (AMB) | payer OTHER, SELFPAY ==
--- NOTE | 2024-03-07 16:00 | MHC.PC.OV ---
Vital Signs 03/07/24 16:01 Height 5 ft 4 in Weight 151 lb BMI 25.9 BP 118/62 Blood Pressure Location Lt brachial Position Sitting Pulse 70 Pulse Source Pulse Oximeter Pulse Oximetry (%) 100 Oxygen Delivery Method Room Air Intake Visit Reasons: pe Intake Note: Patient is here today for a physical. 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 Allergies adhesive [ADHESIVE] Allergy (Intermediate, Verified 03/07/24 16:01) ITCHING Penicillins [PENICILLINS] Allergy (Intermediate, Verified 03/07/24 16:01) RASH Medication List - Last Reconciled 03/07/24 by Angie Hernandez MD alprazolam 0.25 mg PO DAILY PRN aspirin 81 mg PO DAILY atorvastatin 40 mg PO DAILY cholecalciferol (vitamin D3) 50 mcg PO DAILY cyanocobalamin (vitamin B-12) 1,000 mcg PO 2 x a week; valacyclovir mg PO PRN Tobacco use date assessed: 03/07/24 Dental Screening Dental Screen Date: 03/07/24 Did you have a dental visit in the last 12 months?: Yes Did you have a dental problem in the last 6 months where you did not have access to dental care?: No Was dental information given to patient?: Patient has dentist HPI pe HPI Details 63-year-old female with a history of obstructive sleep apnea hypercholesterolemia atherosclerotic cardiovascular disease history of atypical ductal hyperplasia of the right breast and aortic dilatation coming in for physical exam last seen in June 2023. Patient's mammogram is up-to-date December 2023 last colonoscopy was January 2014 patient does follow-up with the surgeon for breast exam. Patient was seen by the neurologist in October and is compliant with CPAP. Patient also follows up with Cardiology seen in July 2023 presently on aspirin and statins patient has a question on coronary artery problem. [facility] Medical History (Updated 03/07/24 @ 17:17 by Angie Hernandez MD) Chest pain PVC (premature ventricular contraction) PAC (premature atrial contraction) Atypical ductal hyperplasia of right breast Abnormal mammogram of right breast Breast calcification, right Abnormal myocardial perfusion study Family history of malignant neoplasm of breast Bacterial vaginosis Cervical cancer screening Diverticular disease Coronary artery disease Vitamin D deficiency Urge incontinence Hypercholesterolemia Anxiety Surgical History History of myomectomy Hx of right breast biopsy History of lumpectomy of right breast (~2008) Hx of section Hx of tonsillectomy Family History (Updated 03/07/24 @ 16:51 by Angie Hernandez MD) Mother Hx of cancer of lung Paternal Aunt HX: breast cancer Maternal Aunt History of esophageal cancer HX: breast cancer Father Myocardial infarct Brother Parkinson disease Other Substance abuse Social History (Updated 03/07/24 @ 16:52 by Angie Hernandez MD) Housing: House Alcohol intake: current Alcohol intake frequency: holidays/special occasions only Alcohol type: wine Comment: 2 days week 4 glasses Patient Tobacco Use Status: Former Tobacco user Tobacco use type: Cigarette Years Smoked: quit 1998 e-Cigarette/Vaping Use: Never Used Second Hand Smoke Exposure: No Current occupational status: employed Cognitive needs: No Hearing needs: No Vision needs: Yes Female Reproductive History Menstrual Age of Menarche: 13 Questionnaire PHQ-9 Over the last 2 weeks, how often have you been bothered by any of the following problems? 1. Little interest or pleasure in doing things: not at all 2. Feeling down, depressed, or hopeless: not at all 3. Trouble falling or staying asleep, or sleeping too much: not at all 4. Feeling tired or having little energy: not at all 5. Poor appetite or overeating: not at all 6. Feeling bad about yourself - or that you are a failure or have let yourself or your family down: not at all 7. Trouble concentrating on things, such as reading the newspaper or watching television: not at all 8. Moving or speaking so slowly that other people could have noticed. Or the opposite - being so fidgety or restless that you have been moving around a lot more than usual: not at all 9. Thoughts that you would be better off or of hurting yourself in some way: not at all Total score: 0 Depression Screening Interpretation: Negative Depression Screening Done: Yes 64083 - PHQ-9 Billing: Yes Source: Developed by Drs. Felipe Dickinson, Jane Howard, Ernesto Gill and colleagues, with an educational juancho from [employer]. Thrive Questionnaire Date Thrive assessed: 03/07/24 I am a: Patient What is your living situation today?: I have a steady place to live Within the past 12 months, did the food you bought not last and you didn't have the money to get more?: Never true Within the past 12 months, did you worry whether your food would run out before you got money to buy more?: Never true Do you have trouble paying for medicines?: No Do you have trouble getting transportation to medical appointments?: No Do you have trouble paying your heating and electricity bill?: No Do you have trouble taking care of your child, family member or friend?: No Do you have trouble with day-to-day activities such as bathing, preparing meals, shopping, managing finances, etc.?: No Are you currently unemployed and looking for a job?: No Are you interested in more education?: No Please select the resources that you would like help with: None Currently or been in a relationship where the following occur: no concerns reported THRIVE Score: 0 AUDIT C Alcohol Use Questionnaire (AUDIT-C) 1. How often do you have a drink containing alcohol?: 2-3 times a week 2. How many drinks containing alcohol do you have on a typical day when you are drinking?: 1 or 2 3. How often do you have six or more drinks on one occasion?: Never Total Score: 3 RUBIN-7 AMB Questionnaire RUBIN-7 Date RUBIN - 7 assessed: 03/07/24 Feeling nervous, anxious, or on edge: 0 = Not at all Not being able to stop or control worryin = Not at all Worrying too much about different things: 0 = Not at all Trouble relaxin = Not at all Being so restless that it is hard to sit still: 0 = Not at all Becoming easily annoyed or irritable: 0 = Not at all Feeling afraid as if something awful might happen: 0 = Not at all Total RUBIN-7 score (0-4 normal; 5-9 mild; 10-14 moderate; 15-21 severe): 0 Source: Developed by Drs. eFlipe Dickinson, Jane Howard, Ernesto Gill and colleagues, with an educational juancho from [employer]. RUBNI-7 Assessment Billing RUBIN-7 Assessment Tool: RUBIN-7 Assessment 69327 Review of Systems Const Denies poor appetite and Denies weakness Eyes Denies no additional complaints ENT Reports Normal hearing present, Denies dizziness, Denies nasal congestion, Denies tinnitus and Denies sore throat Card Denies chest pain, Denies syncope, Denies rapid heart rate and Denies dyspnea Resp Denies cough and Denies dyspnea GI Denies change in stool character, Reports constipation, Denies diarrhea, Denies nausea and Denies vomiting Denies urinary frequency, Denies difficulty voiding and Denies dysuria Neuro Reports Normal hearing present, Denies confusion, Denies dizziness, Denies syncope and Denies weakness Psych Denies confusion Physical exam (Primary Care) Vital Signs: Last Vital Signs Pulse 70 03/07/24 16:01 BP 118/62 03/07/24 16:01 Pulse Ox 100 03/07/24 16:01 Oxygen Delivery Method Room Air 03/07/24 16:01 BMI result Body Mass Index 25.9 Tobacco/Smoking Status: Tobacco use Status Tobacco use date assessed 03/07/24 03/07/24 16:02 Patient Tobacco Use Status Former Tobacco user 03/07/24 16:02 Tobacco use type Cigarette 03/07/24 16:02 e-Cigarette/Vaping Use Never Used 03/07/24 16:02 PHQ-9: PHQ-9 Score PHQ-9: Total score 0 03/07/24 16:14 Depression Screening Interpretation: Negative Thrive Assessment: Date of Thrive Assessment Date Thrive assessed 03/07/24 03/07/24 16:02 Currently or been in a relationship where the following occur: no concerns reported Const General: No confusion Orientation/consciousness: No confusion HENMT Other: TM right ear intact, left ear impacted cerumen Head: Yes normocephalic Ears: external ears normal Face and sinus: Yes normal facial exam Mouth: moist mucous membranes Throat: Yes tonsils normal Eyes Conjunctivae: conjunctivae normal Pupils: Equal, round and reactive pupils present and Pupil accommodation reflex normal Direct Ophthalmoscopy: normal light reflex Neck Neck: No lymphadenopathy Thyroid: Thyroid normal Chest Chest palpation & inspection: normal inspection of the chest Resp Effort & Inspection: normal respiratory effort and no audible wheezes Auscultation: clear to auscultation bilaterally, no crackles, no wheezes and lung sounds not diminished Cardio Rate: regular rate Rhythm: regular rhythm Peripheral pulses: radial pulses present and dorsalis pedis present GI Palpation (GI): no masses Auscultation: normal bowel sounds and normoactive bowel sounds Rectal Exam - Female: deferred Skin General skin exam: no rashes or lesions noted Rashes: no rashes Neuro General: No confusion Cranial nerves: Yes Equal, round and reactive pupils present and Yes Normal hearing present Cognition (Neuro): normal cognition Gait exam (Neuro): Normal gait present Motor exam (neuro): 5/5 motor strength present throughout Deep tendon reflexes (DTR's): Right brachioradialis reflex intensity grade: 2+, Left brachioradialis reflex intensity grade: 2+, Right patellar reflex intensity grade: 2+ and Left patellar reflex intensity grade: 2+ Extrem General: No edema Office Procedures Cerumen Removal From which ear canal was the cerumen removed: left Removal: otoscope w/curette and cerumen loop/spoon Notes: patient tolerated procedure well, no complications and ear canal clear [id number] Wax Removal by Spoon/Curette Assessment and Plan Assessment & Plan (1) Annual physical exam: Code(s): Z00.00 - Encounter for general adult medical examination without abnormal findings (2) Atypical ductal hyperplasia of right breast: Comment: December 2023 Code(s): N60.91 - Unspecified benign mammary dysplasia of right breast Plan: Mammogram is up-to-date and being followed up by the surgeon (3) Hypercholesterolemia: Code(s): E78.00 - Pure hypercholesterolemia, unspecified Plan: Avoid fried foods, chicken skin, eggs, butter margarine, pastries and meat. Be it pork or beef they have a lot of cholesterol LDL goal of less than 130 and triglyceride of less than 150. On atorvastatin 40 mg once a day (4) Obstructive sleep apnea: Comment: CPAP use 08/2022 Code(s): G47.33 - Obstructive sleep apnea (adult) (pediatric) Plan: Continue to use the CPAP more than 4 hours a night and benefits from this. (5) Colon cancer screening: Code(s): Z12.11 - Encounter for screening for malignant neoplasm of colon (6) Tinnitus: Code(s): H93.19 - Tinnitus, unspecified ear (7) Impacted cerumen, left ear: Code(s): H61.22 - Impacted cerumen, left ear Plan: Scoop used no irrigation TM intact Orders: Orders Comprehensive Met. Panel Today E78.00 - Pure hypercholesterolemia, unspecified Free T4 (Free Thyroxine) Today E78.00 - Pure hypercholesterolemia, unspecified Lipid Panel Today E78.00 - Pure hypercholesterolemia, unspecified Vitamin B12 and Folate Today E78.00 - Pure hypercholesterolemia, unspecified Vitamin D 25-OH Total Today E78.00 - Pure hypercholesterolemia, unspecified Complete Blood Count Auto Diff Today E78.00 - Pure hypercholesterolemia, unspecified Thyroid Stimulating Hormone Today E78.00 - Pure hypercholesterolemia, unspecified Referrals Gastroenterology Referral Z12.11 - Encounter for screening for malignant neoplasm of colon Speech and Hearing Referral H93.19 - Tinnitus, unspecified ear Coding Level of Care Code Est Pt Prev Care 40-64y(78398) Diagnoses Annual physical exam Z00.00 Atypical ductal hyperplasia of right breast N60.91 Hypercholesterolemia E78.00 Obstructive sleep apnea G47.33 Colon cancer screening Z12.11 Tinnitus H93.19 Impacted cerumen, left ear H61.22 CPT Codes Office Procedure - CPT: 87321-Hmw Wax Removal by Spoon/Curette ([id number]) Additional Codes RUBIN-7 Assessment Billing - RUBIN-7 Assessment Tool: RUBIN-7 Assessment 33246 ([id number])
[2024-03-07 16:01] VITALS: BP 118/62; PULSE 70; O2SAT 100; BMI 25.9
== END 2024-03-07 17:20 | disposition home or self-care (01) ==
PROVIDERS: PCP Internal Medicine; Visit Provider Internal Medicine
DX: Z00.00 Encounter for general adult medical examination without abnormal findings (principal); N60.91 Unspecified benign mammary dysplasia of right breast; E78.00 Pure hypercholesterolemia, unspecified; G47.33 Obstructive sleep apnea (adult) (pediatric); Z12.11 Encounter for screening for malignant neoplasm of colon; H93.19 Tinnitus, unspecified ear; H61.22 Impacted cerumen, left ear
CPT/HCPCS: 69210; 99396

== ENCOUNTER 2024-04-05 08:57 | Outpatient (REF) | payer OTHER, SELFPAY ==
[2024-04-05 10:19] LABS: MANUAL DIFF FLAG NO
[2024-04-05 10:32] LABS: Basophils Percent Auto 0.9 % (0-2); Eosinophils Absolute Auto 0.1 X10*3/uL (0.0-0.4); Eosinophils Percent Auto 2.1 % (0-4); Hematocrit 39.8 % (37.0-47.0); Hemoglobin 12.8 g/dl (12.0-16.0); Imm Gran Abs Auto 0.01 X10*3/uL (0.00-0.03); Imm Gran Pct Auto 0.2 % (0.0-0.4); Lymphocytes Absolute Auto 1.5 X10*3/uL (1.2-4.9); Lymphocytes Percent Auto 33.9 % (20-40); Mean Corpuscular HGB Conc 32.2 g/dl (31.0-35.0); Mean Corpuscular Hemoglobin 34.7 pg (27.0-33.0); Mean Corpuscular Volume 107.9 fL (80.0-98.0); Mean Platelet Volume 9.4 fL (9.4-12.3); Monocytes Absolute Auto 0.3 X10*3/uL (0.1-1.2); Monocytes Percent Auto 6.9 % (2-11); Neutrophils Absolute Auto 2.5 x10*3/uL (2.0-8.3); Platelet Count 201 X10*3/uL (160-400); Red Blood Count 3.69 X10*6/uL (4.20-5.50); White Blood Count 4.4 X10*3/uL (4.8-10.8)
[2024-04-05 10:56] LABS: Alanine Aminotransferase 18 U/L (0-31); Albumin Level 4.2 g/dL (3.5-5.0); Alkaline Phosphatase 66 U/L (39-117); Anion Gap 12 (12-20); Aspartate Amino Transferase 23 U/L (5-31); Bilirubin Total 0.9 mg/dL (0.0-1.0); Blood Urea Nitrogen 18 mg/dL (9-16); Calcium 9.6 mg/dL (8.4-10.2); Carbon Dioxide 26 mmol/L (22-29); Chloride 110 mmol/L (96-108); Cholesterol 164 mg/dL (<200); Estimated Glomerular Filt Rate > 60; Glucose Random 85 mg/dL (60-115); HDL Cholesterol 87 mg/dL (>40); LDL Cholesterol Calculated 69 mg/dL (<100); Potassium 4.3 mmol/L (3.3-5.1); Sodium 144 mmol/L (135-145); Total Protein 6.9 g/dL (6.5-8.0); Triglycerides 42 mg/dL (<150)
[2024-04-05 11:23] LABS: Free T4 (Free Thyroxine) 0.98 ng/dL (0.71-1.85); Thyroid Stimulating Hormone 1.83 uIU/mL (0.32-4.0); Vitamin D 25-OH Total 36.6 ng/mL (>30)
[2024-04-05 11:41] LABS: Folate 10.2 ng/mL (> or = 4.0); Vitamin B12 1197 pg/mL (200-900)
== END 2024-04-05 08:58 | disposition home or self-care (01) ==
LOC: HO.HMGCLDS 08:57
PROVIDERS: PCP Internal Medicine; Visit Provider Internal Medicine
DX: E78.00 Pure hypercholesterolemia, unspecified (principal)
CPT/HCPCS: 36415; 80053; 80061; 82306; 82607; 82746; 84439; 84443; 85025

== ENCOUNTER 2024-04-22 14:01 | Outpatient (REF) | payer OTHER, SELFPAY | END 2024-04-22 14:02 | disposition home or self-care (01) | LOC: HO.SH 14:01 | PROVIDERS: Visit Provider Internal Medicine | DX: Z01.118 Encounter for examination of ears and hearing with other abnormal findings (principal); H90.3 Sensorineural hearing loss, bilateral | CPT/HCPCS: 92557; 92567 ==

== ENCOUNTER 2024-08-09 09:49 | Outpatient (AMB) | payer OTHER, SELFPAY ==
--- NOTE | 2024-08-09 10:08 | MHC.OFFVIS ---
Vital Signs 08/09/24 10:17 Height 5 ft 4 in Weight 148 lb 6 oz BMI 25.5 BP 126/75 Blood Pressure Location Lt brachial Position Sitting Pulse 64 Intake Visit Reasons: 6 month breast exam Intake Note: Patient is seen in office for 6 month follow up visit, breast exam. 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 Parker and Nereyda, returning for a high risk breast follow-up examination. She has a prior history of a right lumpectomy for atypical ductal hyperplasia in 2007. In 2015 she underwent a MR guided biopsy of the right breast which was benign. An abnormal cluster of calcifications was identified in the right breast in November 2021. She subsequently underwent a stereotactic guided core biopsy which also was benign. She has a family history of breast cancer in a maternal aunt identified at the age of 50 with recurrence at the age of 70. She also has a paternal aunt with breast cancer the age of 62. Her Ty[place]-zick remaining lifetime risk of breast cancer was determined to be 26% placing her at a high risk for breast cancer. She has been undergoing twice yearly breast examinations, yearly mammograms and yearly breast MRIs. Her last breast MRI of 07/10/2023 revealed no MRI specific suspicious changes (BI-RADS 2 bilaterally). Mammogram of 01/06/2024 revealed no mammographic evidence of malignancy (BI-RADS 2).. She feels well and denies any ongoing breast symptoms on either side. Previous genetic testing reported on 08/29/2020 revealed no deleterious mutations or variants of unknown significance. She is , never breast fed, menarche age 13, menopause age 48. [facility] Medical History Chest pain PVC (premature ventricular contraction) PAC (premature atrial contraction) Atypical ductal hyperplasia of right breast Abnormal mammogram of right breast Breast calcification, right Abnormal myocardial perfusion study Family history of malignant neoplasm of breast Bacterial vaginosis Cervical cancer screening Diverticular disease Coronary artery disease Vitamin D deficiency Urge incontinence Hypercholesterolemia Anxiety Surgical History History of myomectomy Hx of right breast biopsy History of lumpectomy of right breast (~2008) Hx of section Hx of tonsillectomy Family History Mother Hx of cancer of lung Paternal Aunt HX: breast cancer Maternal Aunt History of esophageal cancer HX: breast cancer Father Myocardial infarct Brother Parkinson disease Other Substance abuse Social History Housing: House Alcohol intake: current Alcohol intake frequency: holidays/special occasions only Alcohol type: wine Comment: 2 days week 4 glasses Patient Tobacco Use Status: Former Tobacco user Tobacco use type: Cigarette Years Smoked: quit 1998 e-Cigarette/Vaping Use: Never Used Second Hand Smoke Exposure: No Current occupational status: employed Cognitive needs: No Hearing needs: No Vision needs: Yes Female Reproductive History Menstrual Age of Menarche: 13 Review of Systems Const All systems reviewed & are unremarkable except as noted in HPI and below Card Denies dyspnea Resp Denies chest congestion, Denies cough, Denies hemoptysis and Denies dyspnea Denies nipple discharge Skin/Breast Denies bleeding lesions, Denies breast swelling, Denies breast skin changes, Denies breast pain, Denies breast mass, Denies change in breast shape and Denies nipple discharge Brian/Lymph Denies lymphadenopathy Physical Exam Vital Signs: Last Vital Signs Pulse 64 08/09/24 10:17 BP 126/75 08/09/24 10:17 BMI result Body Mass Index 25.5 Const General: no acute distress and well developed Nutritional Appearance: well nourished Orientation/consciousness: patient oriented x3 Limitations: no limitations Chest Other: Left breast: No skin change, no nipple retraction, no nipple discharge, no palpable mass, no enlarged lymph nodes. Right breast: No skin change, no nipple retraction, no nipple discharge, no palpable mass, no enlarged lymph nodes, well-healed incision in the upper outer quadrant Skin General skin exam: no rashes or lesions noted Neuro General: patient oriented x3 Extrem General: No edema Assessment & Plan Assessment & Plan (1) Atypical ductal hyperplasia of right breast: Comment: December 2023 Code(s): N60.91 - Unspecified benign mammary dysplasia of right breast Category: Medical (2) At high risk for breast cancer: Code(s): Z91.89 - Other specified personal risk factors, not elsewhere classified Category: Medical (3) Family history of malignant neoplasm of breast: Code(s): Z80.3 - Family history of malignant neoplasm of breast Category: Medical Plan 63-year-old female patient determined to be at high risk for breast cancer due to both previous history of atypical ductal hyperplasia of the right breast and a family history in a maternal and paternal aunt, found to have a [facility] risk of breast cancer in her remaining life at 28%. Examination today revealed no suspicious findings in either breast. Her most recent breast MRI of 07/10/2023 revealed no MR specific suspicious findings (BI-RADS 2 bilaterally). Mammogram of 01/06/2024 no mammographic evidence of malignancy (BI-RADS 2). She is now due for her annual breast MRI was placed on a waiting list due to the new machine. She is scheduled for a annual mammogram on 02/04/2025. She should return in 6 months for follow-up breast examination, sooner p.r.n.. Coding Level of Care Code Est Pt Level 3 (24084) Diagnoses Atypical ductal hyperplasia of right breast N60.91 At high risk for breast cancer Z91.89 Family history of malignant neoplasm of breast Z80.3
[2024-08-09 10:17] VITALS: BP 126/75; PULSE 64; BMI 25.5
== END 2024-08-09 10:31 | disposition home or self-care (01) ==
PROVIDERS: PCP Internal Medicine; Visit Provider Surgery
DX: N60.91 Unspecified benign mammary dysplasia of right breast (principal); Z91.89 Other specified personal risk factors, not elsewhere classified; Z80.3 Family history of malignant neoplasm of breast
CPT/HCPCS: 99213

== ENCOUNTER → 2024-08-09 09:49 | Outpatient (BNVA) | payer OTHER, SELFPAY | PROVIDERS: PCP Internal Medicine; Visit Provider Surgery ==

== ENCOUNTER 2024-08-12 08:59 | Outpatient (AMB) | payer OTHER, SELFPAY ==
[2024-08-12 09:02] VITALS: BP 112/70; PULSE 63; BMI 25.5
--- NOTE | 2024-08-12 09:02 | MHC.OFFVIS ---
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 To recall, she was having palpitations that led to a stress test. This showed possible apical ischemia leading to a CTA. She is being treated for stable CAD. Otherwise, obstructive sleep apnea on CPAP. She seems to have a lot of anxiety at baseline. Overall, she states that she is feeling fine. No cardiac symptoms whatsoever. [facility] Medical History Chest pain PVC (premature ventricular contraction) PAC (premature atrial contraction) Atypical ductal hyperplasia of right breast Abnormal mammogram of right breast Breast calcification, right Abnormal myocardial perfusion study Family history of malignant neoplasm of breast Bacterial vaginosis Cervical cancer screening Diverticular disease Coronary artery disease Vitamin D deficiency Urge incontinence Hypercholesterolemia Anxiety Surgical History History of myomectomy Hx of right breast biopsy History of lumpectomy of right breast (~2008) Hx of section Hx of tonsillectomy Family History Mother Hx of cancer of lung Paternal Aunt HX: breast cancer Maternal Aunt History of esophageal cancer HX: breast cancer Father Myocardial infarct Brother Parkinson disease Other Substance abuse Social History Housing: House Alcohol intake: current Alcohol intake frequency: holidays/special occasions only Alcohol type: wine Comment: 2 days week 4 glasses Patient Tobacco Use Status: Former Tobacco user Tobacco use type: Cigarette Years Smoked: quit 1998 e-Cigarette/Vaping Use: Never Used Second Hand Smoke Exposure: No Current occupational status: employed Cognitive needs: No Hearing needs: No Vision needs: Yes Female Reproductive History Menstrual Age of Menarche: 13 Review of Systems Const Denies chills, Denies fatigue, Denies fever(s), Denies weight gain and Denies weight loss ENT Denies dizziness Card Denies chest pain, Denies leg edema, Denies lightheadedness, Denies palpitations, Denies dyspnea on exertion, Denies orthopnea and Denies other Resp Denies cough and Denies dyspnea on exertion GI Denies hematochezia and Denies change in stool character Musc Denies abnormal gait, Denies muscle weakness, Denies numbness, Denies radiating pain into limb and Denies tingling Neuro Denies abnormal gait, Denies dizziness, Denies numbness and Denies tingling Endo Denies fatigue and Denies palpitations Physical Exam Vital Signs: Last Vital Signs Pulse 63 08/12/24 09:02 BP 112/70 08/12/24 09:02 BMI result Body Mass Index 25.5 Const General: comfortable and no acute distress Orientation/consciousness: patient oriented x3 HEENT Other: Unremarkable Head: Yes normal to inspection Neck Neck: Yes normal visual inspection Chest Chest palpation & inspection: normal inspection of the chest Resp Auscultation: clear to auscultation bilaterally Cardio Palpation: normal PMI Heart sounds: S1 normal heart sound present, S2 normal heart sound present, no gallops, no murmurs and no rubs GI Palpation (GI): Soft to palpation Back/Spine/Pelvis Other: unremarkable Skin General skin exam: no rashes or lesions noted Neuro General: patient oriented x3 Extrem General: Yes normal to inspection Psych Mental Status: mental status grossly normal Office Procedures EKG Details: EKG with underlying sinus rhythm at 63/Min; low-voltage QRS complexes; [place] [id number], Complete Assessment & Plan Assessment & Plan (1) Abnormal myocardial perfusion study: Code(s): R94.39 - Abnormal result of other cardiovascular function study Category: Medical (2) Atherosclerotic cardiovascular disease: Code(s): I25.10 - Atherosclerotic heart disease of [place] coronary artery without angina pectoris Category: Medical (3) PAC (premature atrial contraction): Code(s): I49.1 - Atrial premature depolarization Category: Medical (4) PVC (premature ventricular contraction): Code(s): I49.3 - Ventricular premature depolarization Category: Medical (5) Obstructive sleep apnea: Comment: CPAP use 08/2022 Code(s): G47.33 - Obstructive sleep apnea (adult) (pediatric) Category: Medical Plan Cardiac studies reviewed. Echocardiogram with normal LVEF, 60-65% and otherwise unremarkable. Myocardial perfusion imaging study in the past reported to have possible anterior/apical ischemia. Coronary CTA was suboptimal due to motion artifact. No significant coronary artery calcification. No significant stenosis in the left main, proximal LAD, proximal circumflex and proximal right coronary artery. Remainder were not seen well due to motion. Subtle hypo enhancement at the apex due to artifact or old infarct. Holter in the past with sinus rhythm, sinus tachycardia, rare supraventricular/ventricular ectopy. Still not entirely clear if she truly had a small infarct in the apex versus being artifactual as she also apparently has dense breast tissue per patient. She remains on aspirin and statins. Also on CPAP for obstructive sleep apnea. Otherwise, mainly reassurance. She will call us with ongoing concerns. Coding Level of Care Code Est Pt Level 3 (11671) Diagnoses Abnormal myocardial perfusion study R94.39 Atherosclerotic cardiovascular disease I25.10 PAC (premature atrial contraction) I49.1 PVC (premature ventricular contraction) I49.3 Obstructive sleep apnea G47.33 CPT Codes EKG - CPT: [id number]-[id number], Complete ([id number])
== END 2024-08-12 09:25 | disposition home or self-care (01) ==
PROVIDERS: PCP Internal Medicine; Visit Provider Internal Medicine
DX: R94.39 Abnormal result of other cardiovascular function study (principal); I25.10 Atherosclerotic heart disease of native coronary artery without angina pectoris; I49.1 Atrial premature depolarization; I49.3 Ventricular premature depolarization; G47.33 Obstructive sleep apnea (adult) (pediatric)
CPT/HCPCS: 93010; 99213

== ENCOUNTER → 2024-08-12 08:59 | Outpatient (BNVA) | payer OTHER, SELFPAY | PROVIDERS: PCP Internal Medicine; Visit Provider Internal Medicine | DX: R94.39 Abnormal result of other cardiovascular function study (principal); I25.10 Atherosclerotic heart disease of native coronary artery without angina pectoris; I49.1 Atrial premature depolarization; I49.3 Ventricular premature depolarization; G47.33 Obstructive sleep apnea (adult) (pediatric); Z79.82 Long term (current) use of aspirin; Z79.899 Other long term (current) drug therapy; Z99.89 Dependence on other enabling machines and devices | CPT/HCPCS: 93005 ==

== ENCOUNTER → 2024-08-20 10:06 | Outpatient (BNV) | payer OTHER, SELFPAY | PROVIDERS: PCP Internal Medicine; Visit Provider Internal Medicine | DX: N60.91 Unspecified benign mammary dysplasia of right breast (principal); Z80.3 Family history of malignant neoplasm of breast | CPT/HCPCS: 77049 ==

== ENCOUNTER 2024-08-20 10:16 | Outpatient (REF) | payer OTHER, SELFPAY ==
--- NOTE | ~2024-08-20 | MR_ITS ---
EXAMINATION: MR BREAST WITHOUT AND WITH CONTRAST, BILATERAL CLINICAL INFORMATION: High risk surveillance. Strong family history of breast cancer. History of right breast atypical ductal hyperplasia. COMPARISON: MR breast July 10, 2023, screening mammogram January 06, 2024. TECHNIQUE: Multiplanar MR imaging of the breasts was performed using T1, T2 and fat saturated techniques. Dynamic multiphase imaging was also performed after administration of intravenous gadolinium contrast agent. FINDINGS: Evaluation of the breasts are limited due to motion and other MR artifacts. There is heterogeneous fibroglandular breast tissue. The patient's fibroglandular tissue demonstrates mild background enhancement. LEFT BREAST: There are no suspicious masses or areas of abnormal nonmass enhancement. There is no axillary or internal mammary lymphadenopathy. RIGHT BREAST: There are no suspicious masses or areas of abnormal nonmass enhancement. There is no axillary or internal mammary lymphadenopathy. Marker clips from previous needle core biopsies. Limited views of the chest and abdomen demonstrate a T2 hyperintense probable cyst measuring 5 mm in the superior portion of the liver. From enhancement is seen however contrast timing is not optimal for liver evaluation. Are otherwise unremarkable. MR/MR breast BI wo/w con IMPRESSION: No MR specific evidence of malignancy. 5 mm T2 hyperintense lesion in the superior portion of the liver could represent a cyst and is not significant changed from prior MRI June 2023, if clinically indicated cross-sectional imaging/ultrasound could be considered for further evaluation. ASSESSMENT: LEFT BREAST: BI-RADS 1-Negative RIGHT BREAST: BI-RADS 2 benign. RECOMMENDATIONS: Recommend MRI screening surveillance in one year. Electronically signed by: Fany Leggett DO 09/17/2024 09:46 AM [place]
[2024-08-20] MEDS: gadobutroL 7.5 ML VIAL IVPUSH (11:43)
== END 2024-08-20 10:17 | disposition home or self-care (01) ==
LOC: HO.MRI 10:16
PROVIDERS: PCP Internal Medicine; Visit Provider Surgery
DX: N60.91 Unspecified benign mammary dysplasia of right breast (principal); Z91.89 Other specified personal risk factors, not elsewhere classified
CPT/HCPCS: 77049; A9585

== ENCOUNTER 2024-10-25 09:27 | Outpatient (AMB) | payer OTHER, SELFPAY ==
[2024-10-25 10:04] VITALS: BP 120/74; PULSE 60; O2SAT 99; BMI 24.2
--- NOTE | 2024-10-25 10:04 | A.OFFVIS_ITS ---
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 Pt denies any significant interval medical history changes. Pt reports she continues to sleep well with her CPAP device. May may have some nocturnal awakenings at times, but not bothersome. Pt has not been having palpitations with using her CPAP device. She has had some weight loss since she retired in June. Her previous occupation was quite sedentary, but now trying to walk 10,000 steps every weekday. Overall her residual AHI on PAP is < 1/hr, however one day in mid-Sep, she had 1 night w/ AHI 14/h. States in all the years she has use CPAP, she has never seen a residual AHI that high. She does not recall any provoking triggers for this- denies temporal infection, congestion, alcohol use change in medication at that time. The residual AHI return to her baseline of < 1/hr, and has remained at baseline since. Patient does monitor her CPAP therapy on her [place]. [facility] Compliance Report Usage 09/25/2024 - 10/24/2024 Usage days 30/30 days (100%) >= 4 hours 30 days (100%) Average usage (days used) 7 hours 36 minutes AirSense 11 AutoSet Serial number [id number] Mode CPAP Set pressure 13 cmH2O EPR Fulltime EPR level 2 Therapy Leaks - L/min Median: 0.1 95th percentile: 4.3 Maximum: 9.5 Events per hour AI: 0.3 HI: 0.0 AHI: 0.3 PFSH Medical History Chest pain PVC (premature ventricular contraction) PAC (premature atrial contraction) Atypical ductal hyperplasia of right breast Abnormal mammogram of right breast Breast calcification, right Abnormal myocardial perfusion study Family history of malignant neoplasm of breast Bacterial vaginosis Cervical cancer screening Diverticular disease Coronary artery disease Vitamin D deficiency Urge incontinence Hypercholesterolemia Anxiety Surgical History History of myomectomy Hx of right breast biopsy History of lumpectomy of right breast (~2008) Hx of section Hx of tonsillectomy Family History Mother Hx of cancer of lung Paternal Aunt HX: breast cancer Maternal Aunt History of esophageal cancer HX: breast cancer Father Myocardial infarct Brother Parkinson disease Other Substance abuse Social History Housing: House Alcohol intake: current Alcohol intake frequency: holidays/special occasions only Alcohol type: wine Comment: 2 days week 4 glasses Patient Tobacco Use Status: Former Tobacco user Tobacco use type: Cigarette Years Smoked: quit 1998 e-Cigarette/Vaping Use: Never Used Second Hand Smoke Exposure: No Current occupational status: employed Cognitive needs: No Hearing needs: No Vision needs: Yes Female Reproductive History Menstrual Age of Menarche: 13 Physical Exam Vital Signs: Last Vital Signs Pulse 60 10/25/24 10:04 BP 120/74 10/25/24 10:04 Pulse Ox 99 10/25/24 10:04 Oxygen Delivery Method Room Air 10/25/24 10:04 BMI result Body Mass Index 24.2 Const General: no acute distress Orientation/consciousness: patient oriented x3 Resp Effort & Inspection: normal respiratory effort and able to speak in complete sentences Neuro General: patient oriented x3 Psych Mental Status: mental status grossly normal Speech and movement: Clear speech present Attitude: cooperative Assessment & Plan Assessment & Plan (1) Obstructive sleep apnea: Comment: CPAP use 08/2022 Code(s): G47.33 - Obstructive sleep apnea (adult) (pediatric) Category: Medical Plan Continue CPAP 13 w/ EPR 2 cmH2O nightly > 4 hours, as pt continues to have good clinical effect from use. Pt advised to notify use if she has repeated recurrence of marked elevated AHI. Continue to use distilled water. Clean CPAP machine and supplies routinely. Change CPAP supplies routinely. Pt to contact us or respiratory company with any questions or concerns. Pt to follow-up in 12 months or sooner prn. Coding Level of Care Code Est Pt Level 4 (40220) Diagnoses Obstructive sleep apnea G47.33
== END 2024-10-25 10:47 | disposition home or self-care (01) ==
PROVIDERS: Absent Provider Nurse Practitioner Family; PCP Internal Medicine; Visit Provider Nurse Practitioner Family
DX: G47.33 Obstructive sleep apnea (adult) (pediatric) (principal)
CPT/HCPCS: 99214

== ENCOUNTER 2024-11-21 13:19 | Outpatient (AMB) | payer OTHER, SELFPAY ==
[2024-11-21 13:25] VITALS: BP 110/71; PULSE 69; BMI 23.7
--- NOTE | 2024-11-21 13:25 | MHC.OFFVIS ---
Vital Signs 11/21/24 13:25 Height 5 ft 4 in Weight 138 lb 0.15 oz BMI 23.7 BP 110/71 Blood Pressure Location Lt brachial Position Sitting Pulse 69 Intake Visit Reasons: pre colonoscopy Intake Note: Kyung presents in office today for colonoscopy screening. CC: Denies having any GI symptoms or concerns today. Last colonoscopy about 12 years ago per patient. 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 She is referred by Angie Hernandez. PMX LEEANNE High cholesterol AAA Arteriosclerotic cardiovascular disease - sees Dr. Aranda. Urinary incontinence * SURGICAL HISTORY Myomectomy section Tonsillectomy Colonoscopy 2013; King=neg exam Excisonal biopsy right breast * ALLERGIES Adhesive Penicillin * [employer] LABS: Laboratory Tests 04/05/24 09:02 WBC 4.4 L Hgb 12.8 Hct 39.8 MCV 107.9 H MCH 34.7 H Plt Count 201 Estimated GFR > 60 Total Bilirubin 0.9 AST 23 ALT 18 Alkaline Phosphatase 66 Vitamin B12 1197 H Folate 10.2 TSH 1.83 Free T4 0.98 TODAY'S VISIT This is her second colonoscopy. She has LEEANNE and no ongoing cardiac disease adn she is followed by Dr. Aranda She denies any trouble with anesthesia or sedation. No ID problems There is no known FHX crc or polyps. [facility] Medical History (Updated 11/21/24 @ 13:33 by LISA Bah) COVID-19 virus infection Annual physical exam Impacted cerumen, left ear Colon cancer screening Chest pain PVC (premature ventricular contraction) PAC (premature atrial contraction) Atypical ductal hyperplasia of right breast Abnormal mammogram of right breast Breast calcification, right Abnormal myocardial perfusion study Family history of malignant neoplasm of breast Bacterial vaginosis Cervical cancer screening Diverticular disease Coronary artery disease Vitamin D deficiency Urge incontinence Hypercholesterolemia Anxiety Surgical History (Updated 11/21/24 @ 13:33 by LISA Bah) H/O colonoscopy History of myomectomy Hx of right breast biopsy History of lumpectomy of right breast (~2008) Hx of section Hx of tonsillectomy Family History Mother Hx of cancer of lung Paternal Aunt HX: breast cancer Maternal Aunt History of esophageal cancer HX: breast cancer Father Myocardial infarct Brother Parkinson disease Other Substance abuse Social History Housing: House Alcohol intake: current Alcohol intake frequency: holidays/special occasions only Alcohol type: wine Comment: 2 days week 4 glasses Patient Tobacco Use Status: Former Tobacco user Tobacco use type: Cigarette Years Smoked: quit 1998 e-Cigarette/Vaping Use: Never Used Second Hand Smoke Exposure: No Current occupational status: employed Cognitive needs: No Hearing needs: No Vision needs: Yes Female Reproductive History Menstrual Age of Menarche: 13 Review of Systems Const Denies fatigue, Denies fever(s), Denies night sweats, Denies poor appetite and Denies weight loss Eyes Details: glasses Reports requires corrective lenses ENT Reports Normal hearing present, Denies dental pain, Denies dysphagia, Denies hearing loss, Denies mouth pain, Denies odynophagia, Denies throat swelling, Denies tongue swelling and Reports other (Dentition adequate) Card Reports rapid heart rate Resp Reports no additional complaints GI Details: Denies abdominal pain, Denies melena, Denies bloating, Denies hematochezia, Denies constipation, Denies GI cramping, Denies dysphagia, Denies excessive flatus, Denies early satiety, Denies heartburn, Denies diarrhea, Denies nausea, Denies odynophagia, Denies vomiting and Denies hematemesis Skin/Breast Denies pruritus, Denies lesions, Denies rash and Denies jaundice Neuro Reports Normal hearing present and Denies Abnormal speech present Endo Denies fatigue Aller/Immun Denies throat swelling and Denies tongue swelling Physical Exam Vital Signs: Last Vital Signs Pulse 69 11/21/24 13:25 BP 110/71 11/21/24 13:25 BMI result Body Mass Index 23.7 Const General: cooperative, no acute distress, well developed and well groomed Nutritional Appearance: well nourished, obese and overweight Orientation/consciousness: oriented to person, oriented to place and oriented to time Limitations: No language barrier, ambulation with cane, ambulation with walker and wheelchair HEENT Head: Yes normocephalic and Yes atraumatic Eyes General: appearance normal, both eyes and all related structures Pupils: Equal, round and reactive pupils present Neck Neck: Yes normal visual inspection and Yes no lymphadenopathy Thyroid: Thyroid normal Resp Effort & Inspection: normal respiratory effort and able to speak in complete sentences Auscultation: clear to auscultation bilaterally Cardio Rate: regular rate Rhythm: regular rhythm Heart sounds: Normal, physiologic split S2 sound present Peripheral pulses: radial pulses present and posterior tibial pulses present GI Inspection: No distended and No Abdominal panniculus present Palpation (GI): Soft to palpation, nontender, no guarding, not rigid and No hepatosplenomegaly present Percussion: Yes normal to percussion Auscultation: normal bowel sounds Rectal Exam - Female: deferred Abdomen image: 1. surgical scars Skin General skin exam: no rashes or lesions noted, turgor normal, skin not dry, no jaundice, No spider nevi and no striae Rashes: no rashes Nails: normal Neuro General: oriented to person, oriented to place and oriented to time Cranial nerves: Yes Equal, round and reactive pupils present and Yes Normal hearing present Speech: No Abnormal speech present Extrem General: Yes normal to inspection, No clubbing, No cyanosis and No edema Psych Appearance: grossly normal and well kempt Mental Status: mental status grossly normal Speech and movement: Normal speech and movement present Affect: normal affect Attitude: cooperative Thought process: Normal thought process present and not confabulating Thought content: Normal thought content present Insight: Good insight present (Psych) Judgement: Good judgement present (Psych) Assessment & Plan Assessment & Plan (1) Pre-op chest exam: Code(s): Z01.811 - Encounter for preprocedural respiratory examination Category: Medical (2) Obstructive sleep apnea: Comment: CPAP use 08/2022 Code(s): G47.33 - Obstructive sleep apnea (adult) (pediatric) Category: Medical Plan This is her second colonoscopy. She has LEEANNE and no ongoing cardiac disease adn she is followed by Dr. Aranda She denies any trouble with anesthesia or sedation. No ID problems There is no known FHX crc or polyps. Orders: Orders Colonoscopy - GI Use Only Today G47.33 - Obstructive sleep apnea (adult) (pediatric), Z01.811 - Encounter for preprocedural respiratory examination Medications: New sodium,potassium,mag sulfates 17.5-3.13-1.6 gram (Suprep Bowel Prep Kit) 480 mL orally; FOR COLONOSCOPY PREP 354 mL 0RF Coding Level of Care Code New Pt Level 3 (16018) Diagnoses Pre-op chest exam Z01.811 Obstructive sleep apnea G47.33
== END 2024-11-21 13:55 | disposition home or self-care (01) ==
PROVIDERS: PCP Internal Medicine; Visit Provider Nurse Practitioner
DX: Z01.811 Encounter for preprocedural respiratory examination (principal); G47.33 Obstructive sleep apnea (adult) (pediatric)
CPT/HCPCS: 99203

== ENCOUNTER 2025-01-07 09:22 | Outpatient (REF) | payer OTHER, SELFPAY | END 2025-01-07 09:23 | disposition home or self-care (01) | LOC: HO.MAMMO 09:22 | PROVIDERS: PCP Internal Medicine; Visit Provider Internal Medicine | DX: Z12.31 Encounter for screening mammogram for malignant neoplasm of breast (principal) | CPT/HCPCS: 77063; 77067 ==

== ENCOUNTER → 2025-01-07 09:45 | Outpatient (BNV) | payer OTHER, SELFPAY | PROVIDERS: PCP Internal Medicine; Visit Provider Internal Medicine | DX: Z12.31 Encounter for screening mammogram for malignant neoplasm of breast (principal) | CPT/HCPCS: 77063; 77067 ==

== ENCOUNTER 2025-02-07 09:54 | Outpatient (AMB) | payer OTHER, SELFPAY ==
--- NOTE | 2025-02-07 10:20 | A.OFFVIS_ITS ---
Vital Signs 02/07/25 10:26 Height 5 ft 4 in Weight 137 lb 2 oz BMI 23.5 BP 133/74 Blood Pressure Location Lt brachial Position Sitting Pulse 64 Intake Visit Reasons: 6 month breast exam Intake Note: Patient is seen in office for 6 month follow up visit, breast exam. 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 Accompanied by: Self / Same As Patient Allergies adhesive [ADHESIVE] Allergy (Intermediate, Verified 02/07/25 10:21) ITCHING Penicillins [PENICILLINS] Allergy (Intermediate, Verified 02/07/25 10:21) RASH Medication List - Last Reconciled 02/07/25 by Rolando Melendez MD alprazolam 0.25 mg PO DAILY PRN aspirin 81 mg PO DAILY atorvastatin 40 mg PO DAILY cholecalciferol (vitamin D3) 50 mcg PO DAILY cyanocobalamin (vitamin B-12) 1,000 mcg PO 2 x a week; sodium,potassium,mag sulfates 17.5-3.13-1.6 gram (Suprep Bowel Prep Kit) 480 mL orally; FOR COLONOSCOPY PREP valacyclovir mg PO PRN HPI Comments Details: 64-year-old female patient, former patient of Dr. Parker and Nereyda, returning for a high risk breast follow-up examination. She has a prior history of a right lumpectomy for atypical ductal hyperplasia in 2007. In 2015 she underwent a MR guided biopsy of the right breast which was benign. An abnormal cluster of calcifications was identified in the right breast in November 2021. She subsequently underwent a stereotactic guided core biopsy which also was benign. She has a family history of breast cancer in a maternal aunt identified at the age of 50 with recurrence at the age of 70. She also has a paternal aunt with breast cancer the age of 62. Her Tyrer-zick remaining lifetime risk of breast cancer was determined to be 26% placing her at a high risk for breast cancer. She has been undergoing twice yearly breast examinations, yearly mammograms and yearly breast MRIs. Her last breast MRI of 08/20/2024 revealed no MR specific evidence of malignancy (BI-RADS 2 right, BI-RADS 1 left). Mammogram of 01/07/2025 revealed no mammographic evidence of malignancy (BI-RADS 2). She feels well and denies any ongoing breast symptoms on either side. Previous genetic testing reported on 08/29/2020 revealed no deleterious mutations or variants of unknown significance. She is , never breast fed, menarche age 13, menopause age 48. [facility] Medical History COVID-19 virus infection Annual physical exam Impacted cerumen, left ear Colon cancer screening Chest pain PVC (premature ventricular contraction) PAC (premature atrial contraction) Atypical ductal hyperplasia of right breast Abnormal mammogram of right breast Breast calcification, right Abnormal myocardial perfusion study Family history of malignant neoplasm of breast Bacterial vaginosis Cervical cancer screening Diverticular disease Coronary artery disease Vitamin D deficiency Urge incontinence Hypercholesterolemia Anxiety Surgical History H/O colonoscopy History of myomectomy Hx of right breast biopsy History of lumpectomy of right breast (~2008) Hx of section Hx of tonsillectomy Family History Mother Hx of cancer of lung Paternal Aunt HX: breast cancer Maternal Aunt History of esophageal cancer HX: breast cancer Father Myocardial infarct Brother Parkinson disease Other Substance abuse Social History Housing: House Alcohol intake: current Alcohol intake frequency: holidays/special occasions only Alcohol type: wine Comment: 2 days week 4 glasses Patient Tobacco Use Status: Former Tobacco user Tobacco use type: Cigarette Years Smoked: quit 1998 e-Cigarette/Vaping Use: Never Used Second Hand Smoke Exposure: No Current occupational status: employed Cognitive needs: No Hearing needs: No Vision needs: Yes Female Reproductive History Menstrual Age of Menarche: 13 Review of Systems Const All systems reviewed & are unremarkable except as noted in HPI and below Card Denies dyspnea Resp Denies chest congestion, Denies cough, Denies hemoptysis and Denies dyspnea Denies nipple discharge Skin/Breast Denies bleeding lesions, Denies breast swelling, Denies breast skin changes, Denies breast pain, Denies breast mass, Denies change in breast shape and Denies nipple discharge Brian/Lymph Denies lymphadenopathy Physical Exam Vital Signs: Last Vital Signs Pulse 64 02/07/25 10:26 BP 133/74 02/07/25 10:26 BMI result Body Mass Index 23.5 Const General: no acute distress and well developed Nutritional Appearance: well nourished Orientation/consciousness: patient oriented x3 Limitations: no limitations Chest Other: Left breast: No skin change, no nipple retraction, no nipple discharge, no palpable mass, no enlarged lymph nodes. Right breast: No skin change, no nipple retraction, no nipple discharge, no palpable mass, no enlarged lymph nodes, well-healed incision in the upper outer quadrant Skin General skin exam: no rashes or lesions noted Neuro Other: Mobility Assessment: 1. 3 meter assessment time (seconds) 5 2. Gait observations: Normal balance and gait General: patient oriented x3 Extrem General: No edema Assessment & Plan Assessment & Plan (1) Atypical ductal hyperplasia of right breast: Comment: December 2023 Code(s): N60.91 - Unspecified benign mammary dysplasia of right breast Category: Medical (2) At high risk for breast cancer: Code(s): Z91.89 - Other specified personal risk factors, not elsewhere classified Category: Medical (3) Family history of malignant neoplasm of breast: Code(s): Z80.3 - Family history of malignant neoplasm of breast Category: Medical Plan 64-year-old female patient determined to be at high risk for breast cancer due to both previous history of atypical ductal hyperplasia of the right breast and a family history in a maternal and paternal aunt, found to have a [facility] risk of breast cancer in her remaining life at 28%. Examination today revealed no suspicious findings in either breast. Her most recent breast MRI of 08/20/2024 revealed no MR specific suspicious findings (BI-RADS 2 right, BI-RADS 1 left). Mammogram of 01/07/2024 no mammographic evidence of malignancy (BI-RADS 2). I recommended continuing the yearly mammogram and MRI alternating every 6 months. She should return in 6 months for follow-up breast examination, sooner p.r.n.. Coding Level of Care Code Est Pt Level 3 (14297) Diagnoses Atypical ductal hyperplasia of right breast N60.91 At high risk for breast cancer Z91.89 Family history of malignant neoplasm of breast Z80.3
[2025-02-07 10:26] VITALS: BP 133/74; PULSE 64; BMI 23.5
== END 2025-02-07 10:36 | disposition home or self-care (01) ==
LOC: HO.HGS 09:55
PROVIDERS: PCP Internal Medicine; Visit Provider Surgery
DX: N60.91 Unspecified benign mammary dysplasia of right breast (principal); Z91.89 Other specified personal risk factors, not elsewhere classified; Z80.3 Family history of malignant neoplasm of breast
CPT/HCPCS: 99213

== ENCOUNTER 2025-03-17 09:59 | Outpatient (AMB) | payer OTHER, SELFPAY ==
[2025-03-17 10:04] VITALS: BP 124/72; PULSE 69; O2SAT 97; BMI 23.0
--- NOTE | 2025-03-17 10:04 | A.OFFPC_ITS ---
Vital Signs 03/17/25 10:04 Height 5 ft 4 in Weight 134 lb BMI 23.0 BP 124/72 Blood Pressure Location Lt brachial Position Sitting Pulse 69 Pulse Source Pulse Oximeter Pulse Oximetry (%) 97 Oxygen Delivery Method Room Air Intake Visit Reasons: PHYSICAL Allergies adhesive [ADHESIVE] Allergy (Intermediate, Verified 03/17/25 10:04) ITCHING Penicillins [PENICILLINS] Allergy (Intermediate, Verified 03/17/25 10:04) RASH Medication List - Last Reconciled 03/17/25 by Angie Hernandez MD alprazolam 0.25 mg PO DAILY PRN aspirin 81 mg PO DAILY atorvastatin 40 mg PO DAILY cholecalciferol (vitamin D3) 50 mcg PO DAILY cyanocobalamin (vitamin B-12) 1,000 mcg PO 2 x a week; sodium,potassium,mag sulfates 17.5-3.13-1.6 gram (Suprep Bowel Prep Kit) 480 mL orally; FOR COLONOSCOPY PREP valacyclovir mg PO PRN Tobacco use date assessed: 03/17/25 Dental Screening Dental Screen Date: 03/17/25 [facility] Medical History (Updated 03/17/25 @ 10:49 by Angie Hernandez MD) Annual physical exam COVID-19 virus infection Impacted cerumen, left ear Colon cancer screening Chest pain PVC (premature ventricular contraction) PAC (premature atrial contraction) Atypical ductal hyperplasia of right breast Abnormal mammogram of right breast Breast calcification, right Abnormal myocardial perfusion study Family history of malignant neoplasm of breast Bacterial vaginosis Cervical cancer screening Diverticular disease Coronary artery disease Vitamin D deficiency Urge incontinence Hypercholesterolemia Anxiety Surgical History H/O colonoscopy History of myomectomy Hx of right breast biopsy History of lumpectomy of right breast (~2008) Hx of section Hx of tonsillectomy Family History Mother Hx of cancer of lung Paternal Aunt HX: breast cancer Maternal Aunt History of esophageal cancer HX: breast cancer Father Myocardial infarct Brother Parkinson disease Other Substance abuse Social History (Updated 03/17/25 @ 10:48 by Angie Hernandez MD) Housing: House Alcohol intake: current Alcohol intake frequency: holidays/special occasions only Alcohol type: wine Comment: 2 days week 4 glasses , 1 day a week 1 bottle -3-4 glasses Patient Tobacco Use Status: Former Tobacco user Tobacco use type: Cigarette Years Smoked: quit 1998 e-Cigarette/Vaping Use: Never Used Second Hand Smoke Exposure: No Current occupational status: employed Cognitive needs: No Hearing needs: No Vision needs: Yes Female Reproductive History Menstrual Age of Menarche: 13 Questionnaire PHQ-9 Over the last 2 weeks, how often have you been bothered by any of the following problems? 1. Little interest or pleasure in doing things: not at all 2. Feeling down, depressed, or hopeless: not at all 3. Trouble falling or staying asleep, or sleeping too much: not at all 4. Feeling tired or having little energy: not at all 5. Poor appetite or overeating: not at all 6. Feeling bad about yourself - or that you are a failure or have let yourself or your family down: not at all 7. Trouble concentrating on things, such as reading the newspaper or watching television: not at all 8. Moving or speaking so slowly that other people could have noticed. Or the opposite - being so fidgety or restless that you have been moving around a lot more than usual: not at all 9. Thoughts that you would be better off or of hurting yourself in some way: not at all Total score: 0 Source: Developed by Drs. Felipe Dickinson, Jane Howard, Ernesto Gill and colleagues, with an educational juancho from [employer]. Thrive Questionnaire Date Thrive assessed: 03/10/25 I am a: Patient What is your living situation today?: I have a steady place to live Within the past 12 months, did the food you bought not last and you didn't have the money to get more?: Never true Within the past 12 months, did you worry whether your food would run out before you got money to buy more?: Never true Do you have trouble paying for medicines?: No Do you have trouble getting transportation to medical appointments?: No Do you have trouble paying your heating and electricity bill?: No Do you have trouble taking care of your child, family member or friend?: No Do you have trouble with day-to-day activities such as bathing, preparing meals, shopping, managing finances, etc.?: No Are you currently unemployed and looking for a job?: No Are you interested in more education?: No Please select the resources that you would like help with: None Currently or been in a relationship where the following occur: No concerns reported THRIVE Score: 0 AUDIT C Alcohol Use Questionnaire (AUDIT-C) 1. How often do you have a drink containing alcohol?: 2-4 times a month 2. How many drinks containing alcohol do you have on a typical day when you are drinking?: 3 or 4 3. How often do you have six or more drinks on one occasion?: Less than monthly Total Score: 4 RUBIN-7 AMB Questionnaire RUBIN-7 Date RUBIN - 7 assessed: 03/07/24 Feeling nervous, anxious, or on edge: 0 = Not at all Not being able to stop or control worryin = Not at all Worrying too much about different things: 0 = Not at all Trouble relaxin = Not at all Being so restless that it is hard to sit still: 0 = Not at all Becoming easily annoyed or irritable: 0 = Not at all Feeling afraid as if something awful might happen: 0 = Not at all Total RUBIN-7 score (0-4 normal; 5-9 mild; 10-14 moderate; 15-21 severe): 0 Source: Developed by Drs. Felipe Dickinson, Jane Howard, Ernesto Gill and colleagues, with an educational juancho from [employer]. Review of Systems Const Denies poor appetite and Denies weakness Eyes Denies no additional complaints ENT Reports Normal hearing present, Denies dizziness, Denies nasal congestion, Denies tinnitus and Denies sore throat Card Denies chest pain, Denies syncope, Denies rapid heart rate and Denies dyspnea Resp Denies cough and Denies dyspnea GI Denies change in stool character, Reports constipation, Denies diarrhea, Denies nausea and Denies vomiting Denies urinary frequency, Denies difficulty voiding and Denies dysuria Neuro Reports Normal hearing present, Denies confusion, Denies dizziness, Denies syncope and Denies weakness Psych Denies confusion Physical exam (Primary Care) Vital Signs: Last Vital Signs Pulse 69 03/17/25 10:04 BP 124/72 03/17/25 10:04 Pulse Ox 97 03/17/25 10:04 Oxygen Delivery Method Room Air 03/17/25 10:04 BMI result Body Mass Index 23.0 Tobacco/Smoking Status: Tobacco use Status Tobacco use date assessed 03/17/25 03/17/25 10:06 Patient Tobacco Use Status Former Tobacco user 03/17/25 10:48 Tobacco use type Cigarette 03/17/25 10:48 e-Cigarette/Vaping Use Never Used 03/17/25 10:48 PHQ-9: PHQ-9 Score PHQ-9: Total score 0 03/17/25 10:40 Thrive Assessment: Date of Thrive Assessment Date Thrive assessed 03/10/25 03/17/25 10:06 Currently or been in a relationship where the following occur: No concerns reported Const General: No confusion Orientation/consciousness: No confusion HENMT Head: Yes normocephalic Ears: external ears normal and TM's normal bilaterally Face and sinus: Yes normal facial exam Mouth: moist mucous membranes Throat: Yes tonsils normal Eyes Conjunctivae: conjunctivae normal Pupils: Equal, round and reactive pupils present and Pupil accommodation reflex normal Direct Ophthalmoscopy: normal light reflex Neck Neck: No lymphadenopathy Thyroid: Thyroid normal Chest Chest palpation & inspection: normal inspection of the chest Resp Effort & Inspection: normal respiratory effort and no audible wheezes Auscultation: clear to auscultation bilaterally, no crackles, no wheezes and lung sounds not diminished Cardio Rate: regular rate Rhythm: regular rhythm Peripheral pulses: radial pulses present and dorsalis pedis present GI Palpation (GI): no masses Auscultation: normal bowel sounds and normoactive bowel sounds Rectal Exam - Female: deferred Skin General skin exam: no rashes or lesions noted Rashes: no rashes Neuro General: No confusion Cranial nerves: Yes Equal, round and reactive pupils present and Yes Normal hearing present Cognition (Neuro): normal cognition Gait exam (Neuro): Normal gait present Motor exam (neuro): 5/5 motor strength present throughout Deep tendon reflexes (DTR's): Right brachioradialis reflex intensity grade: 2+, Left brachioradialis reflex intensity grade: 2+, Right patellar reflex intensity grade: 2+ and Left patellar reflex intensity grade: 2+ Extrem General: No edema Coding Level of Care Code Est Pt Prev Care 40-64y(54540) Diagnoses Annual physical exam Z00.00 Obstructive sleep apnea G47.33 Atherosclerotic cardiovascular disease I25.10 Hypercholesterolemia E78.00 Atypical ductal hyperplasia of right breast N60.91 Hearing deficit H91.90 Assessment & Plan Assessment & Plan (1) Annual physical exam: Code(s): Z00.00 - Encounter for general adult medical examination without abnormal findings Category: Medical Plan: Patient is advised to eat healthy, keep well hydrated, keep active and have adequate sleep. (2) Obstructive sleep apnea: Comment: CPAP use 08/2022 Code(s): G47.33 - Obstructive sleep apnea (adult) (pediatric) Category: Medical Plan: Patient follows up with Neurology. Continue to use the CPAP more than 4 hours a night and benefits from this. (3) Atherosclerotic cardiovascular disease: Code(s): I25.10 - Atherosclerotic heart disease of [place] coronary artery without angina pectoris Category: Medical Plan: Control the cholesterol, weight, blood pressure, on aspirin 81 mg once a day (4) Hypercholesterolemia: Code(s): E78.00 - Pure hypercholesterolemia, unspecified Category: Medical Plan: Avoid fried foods, chicken skin, eggs, butter margarine, pastries and meat. Be it pork or beef they have a lot of cholesterol LDL goal of less than 70 and triglyceride of less than 150 on atorvastatin 40 mg once a day (5) Atypical ductal hyperplasia of right breast: Comment: December 2023 Code(s): N60.91 - Unspecified benign mammary dysplasia of right breast Category: Medical Plan: Continue to follow-up with the surgeon as well as MRI and mammogram (6) Hearing deficit: Code(s): H91.90 - Unspecified hearing loss, unspecified ear Category: Medical Plan History of Present Illness The patient is a 64-year-old female presenting for an annual physical exam. She has a significant medical history of atypical ductal hyperplasia in the right breast, with regular follow-ups with a surgeon and a mammogram done in January 2025. Her coronary artery disease is currently stable, and she manages it with aspirin and atorvastatin. Her last cardiology assessment revealed no coronary calcification or stenosis, and she maintains a specified lipid profile with her current medication regimen. For obstructive sleep apnea, she consistently uses CPAP therapy, which seems beneficial. Her blood work from March 2024 highlighted macrocytosis but no anemia, with otherwise normal lab values. With regards to her lifestyle choices, she walks regularly following her penitent[facility] and is mindful of her alcohol intake, putatively linked to her macrocytosis. She is attempting to increase her daily water intake to address occasional constipation and is planning to keep her vaccinations and health screenings up to date. Health Maintenance - Regular Follow-ups for Atypical Ductal Hyperplasia. - Mammogram last performed January 2025. - Bloodwork last done March 2024, showing macrocytosis without anemia. - Regular cardiology follow-ups, last in August, stable coronary artery disease. - Colonoscopy reminder issued; last done in 2013. - CPAP use for obstructive sleep apnea, more than 4 hours per night. - Active lifestyle including regular walking. - Discussions about alcohol intake moderation. - Vaccinations discussed: Pneumonia vaccine anticipated. - Tetanus immunization review; due later this year. - No new COVID vaccine was given this year; to consider in the fall. Social History - Engages in regular physical activity, enjoying walking since penitentiary. - Alcohol intake reported as three to four glasses of wine weekly. - Retired, previously working in a high-stress environment. - Non-smoker and no illicit drug use. - Lives with her , who works at [employer]. - Regular health screenings and preventive care adherence. Review of Systems - Constitutional: Denies fever, fatigue. - Eyes: Reports regular eye exams, last in the previous year; no issues noted. - Respiratory: Denies shortness of breath or snoring with CPAP usage. - Cardiovascular: Denies chest pain; notes palpitations occasionally but uneventful. - Gastrointestinal: Reports occasional constipation, improved with hydration. Denies nausea or vomiting. - Genitourinary: Reports waking 0-2 times a night for urination. - Neurological: Denies dizziness or syncope. - Hematologic: Aware of macrocytosis. - Musculoskeletal: [place] exercise through walking. - Allergies: Reports allergy to penicillin. Physical Exam General: Cooperative, healthy appearing, comfortable, no acute distress and well developed Orientation: Patient oriented x3 Limitations: No limitations Head: Normal to inspection Ears: Hearing aids recommended for both ears Nose: Normal external nose present Face and sinus: Normal facial exam Eyes: Appearance normal, both eyes and all related structures Neck: Normal visual inspection and Yes full ROM Respiratory: Normal respiratory effort and able to speak in complete sentences. Clear to auscultation bilaterally Cardiovascular: Regular rate and rhythm with occasional palpitations noted. Normal S1 and S2 GI: Normal to inspection. Soft to palpation and nontender Skin: No rashes or lesions noted Neuro: Patient oriented x3 Extremities: Normal to inspection Results - Labs: Bloodwork from March 2024, macrocytosis noted, normal other values. - Tests: Mammogram completed in January 2025; Breast MRI in August 2024. Plan During the visit, we reviewed the management of the patient's atypical ductal hyperplasia, hypercholesterolemia, and coronary artery disease. She is to maintain her use of aspirin and atorvastatin with goals for specific lipid levels, assessing potential changes based on future lab results. We encouraged continued CPAP use for obstructive sleep apnea management. For lifestyle adjustments, emphasis was placed on maintaining hydration, moderation of alcohol intake, and continuation of routine physical activity through walking. Health maintenance discussions included the scheduling of her colonoscopy and updating vaccinations, particularly the pneumonia and tetanus vaccines. Patient was informed and verbally consented to the use of an ambient scribe for clinic note documentation during this visit. Discussion Notes We explored comprehensive management strategies for atypical ductal hyperplasia and her ongoing coronary artery disease and hypercholesterolemia. Discussions centered on ensuring stability of her conditions with her current medical regimen and lifestyle choices. We clarified the importance of colonoscopy follow-up considering her history and encouraged lifestyle modifications, including hydration and alcohol moderation, addressing any potential link to her macrocytosis. Consistent use of CPAP for sleep apnea despite lack of symptoms when utilized regularly was affirmed. We reviewed her vaccination status and the necessity of upcoming tetanus and pneumonia vaccines. The discussion included the recommendation to consider her COVID vaccination in the ricardo season and the benefits of regular physical activity. Patient Instructions - Continue regular use of CPAP device each night for sleep apnea management. - Maintain daily regimen of aspirin 81mg and atorvastatin 40mg for coronary artery disease. - Plan for next colonoscopy; follow up with gastroenterology. - Keep walking regularly and stay hydrated. - Limit alcohol consumption to manage macrocytosis. - Schedule and receive pneumonia and upcoming tetanus vaccinations. - Consider COVID vaccine in the fall. - Regularly monitor health changes and book follow-up appointments as required. - Follow a fasting routine before lab draws for accuracy. - Return as needed if new symptoms or health concerns arise. Orders: Orders Complete Blood Count Auto Diff Today I25.10 - Atherosclerotic heart disease of [place] coronary artery without angina pectoris Comprehensive Met. Panel Today I25.10 - Atherosclerotic heart disease of [place] coronary artery without angina pectoris Thyroid Stimulating Hormone Today I25.10 - Atherosclerotic heart disease of [place] coronary artery without angina pectoris Rubella IgG Antibody Today I25.10 - Atherosclerotic heart disease of [place] coronary artery without angina pectoris, Z02.0 - Encounter for examination for admission to [facility] Varicella IgG Antibody Today I25.10 - Atherosclerotic heart disease of [place] coronary artery without angina pectoris, Z02.0 - Encounter for examination for admission to [facility] Hepatitis B,C Profile Today I25.10 - Atherosclerotic heart disease of [place] coronary artery without angina pectoris, R79.89 - Other specified abnormal findings of blood chemistry Free T4 (Free Thyroxine) Today I25.10 - Atherosclerotic heart disease of [place] coronary artery without angina pectoris Lipid Panel Today E78.00 - Pure hypercholesterolemia, unspecified, I25.10 - Atherosclerotic heart disease of [place] coronary artery without angina pectoris Vitamin B12 and Folate Today I25.10 - Atherosclerotic heart disease of [place] coronary artery without angina pectoris Vitamin D 25-OH Total Today I25.10 - Atherosclerotic heart disease of [place] coronary artery without angina pectoris Mumps Virus IgG Antibody Today I25.10 - Atherosclerotic heart disease of [place] coronary artery without angina pectoris, Z02.0 - Encounter [facility] to [facility] R[place] IgG (Measles) Today I25.10 - Atherosclerotic heart disease of [place] coronary artery without angina pectoris, Z02.0 - Encounter for examination for admission to educational institution Referrals Speech and Hearing Referral H91.90 - Unspecified hearing loss, unspecified ear
== END 2025-03-17 11:07 | disposition home or self-care (01) ==
LOC: HO.HMCH 10:00
PROVIDERS: PCP Internal Medicine; Visit Provider Internal Medicine
DX: Z00.00 Encounter for general adult medical examination without abnormal findings (principal); G47.33 Obstructive sleep apnea (adult) (pediatric); I25.10 Atherosclerotic heart disease of native coronary artery without angina pectoris; E78.00 Pure hypercholesterolemia, unspecified; N60.91 Unspecified benign mammary dysplasia of right breast; H91.90 Unspecified hearing loss, unspecified ear

== ENCOUNTER → 2025-03-17 09:59 | Outpatient (BNVA) | payer OTHER, SELFPAY | PROVIDERS: PCP Internal Medicine; Visit Provider Internal Medicine | DX: Z13.89 Encounter for screening for other disorder (principal) ==

== ENCOUNTER 2025-03-18 09:23 | Outpatient (REF) | payer OTHER, SELFPAY ==
[2025-03-18 13:44] LABS: MANUAL DIFF FLAG NO
[2025-03-18 13:48] LABS: Eosinophils Absolute Auto 0.1 X10*3/uL (0.0-0.4); Eosinophils Percent Auto 2.1 % (0-4); Hematocrit 38.3 % (37.0-47.0); Hemoglobin 12.4 g/dl (12.0-16.0); Imm Gran Abs Auto 0.01 X10*3/uL (0.00-0.03); Imm Gran Pct Auto 0.3 % (0.0-0.4); Lymphocytes Absolute Auto 1.3 X10*3/uL (1.2-4.9); Lymphocytes Percent Auto 35.1 % (20-40); Mean Corpuscular HGB Conc 32.4 g/dl (31.0-35.0); Mean Corpuscular Hemoglobin 34.8 pg (27.0-33.0); Mean Corpuscular Volume 107.6 fL (80.0-98.0); Mean Platelet Volume 9.3 fL (9.4-12.3); Monocytes Absolute Auto 0.3 X10*3/uL (0.1-1.2); Monocytes Percent Auto 6.8 % (2-11); Neutrophils Absolute Auto 2.1 x10*3/uL (2.0-8.3); Neutrophils Percent Auto 54.7 % (45-73); Platelet Count 215 X10*3/uL (160-400); Red Blood Count 3.56 X10*6/uL (4.20-5.50); Red Cell Distribution Width 12.3 % (11.0-16.0); White Blood Count 3.8 X10*3/uL (4.8-10.8)
[2025-03-18 14:28] LABS: Alanine Aminotransferase 52 U/L (0-31); Albumin Level 4.3 g/dL (3.5-5.0); Anion Gap 12 (12-20); Aspartate Amino Transferase 56 U/L (5-31); Bilirubin Total 0.9 mg/dL (0.0-1.0); Blood Urea Nitrogen 15 mg/dL (9-16); Calcium 9.3 mg/dL (8.4-10.2); Carbon Dioxide 25 mmol/L (22-29); Chloride 110 mmol/L (96-108); Cholesterol 166 mg/dL (<200); Estimated Glomerular Filt Rate > 60; Glucose Random 82 mg/dL (60-115); HDL Cholesterol 86 mg/dL (>40); LDL Cholesterol Calculated 70 mg/dL (<100); Sodium 143 mmol/L (135-145); Triglycerides 50 mg/dL (<150)
[2025-03-18 14:37] LABS: Folate 10.8 ng/mL (> or = 4.0); Vitamin B12 589 pg/mL (200-900)
[2025-03-18 14:53] LABS: Free T4 (Free Thyroxine) 1.09 ng/dL (0.71-1.85); Thyroid Stimulating Hormone 1.88 uIU/mL (0.32-4.0); Vitamin D 25-OH Total 62.2 ng/mL (>30)
[2025-03-18 18:18] LABS: Alkaline Phosphatase 59 U/L (39-117)
[2025-03-19 04:30] LABS: HBS Num1 2.29 mIU/mL (0-7.99); HBc Num1 0.14 S/CO (0.00-0.79); HBsAGNum1 0.28 S/CO (0.00-0.99); Hepatitis B Core Antibody Nonreactive (Nonreactive); Hepatitis B Surface Antigen Negative (Negative); ~HepC Num1 0.09 S/CO (0.00-0.79); ~Hepatitis B Surface Antibody NONREACTIVE (Nonreactive); ~Hepatitis C Antibody Nonreactive (Nonreactive)
[2025-03-19 05:59] LABS: Rubella IgG Antibody 5.17 Index
== END 2025-03-18 09:24 | disposition home or self-care (01) ==
LOC: HO.HMGCLDS 09:23
PROVIDERS: PCP Internal Medicine; Visit Provider Internal Medicine
DX: Z00.00 Encounter for general adult medical examination without abnormal findings (principal); I25.10 Atherosclerotic heart disease of native coronary artery without angina pectoris; R79.89 Other specified abnormal findings of blood chemistry; E78.00 Pure hypercholesterolemia, unspecified
CPT/HCPCS: 36415; 80053; 80061; 82306; 82607; 82746; 84439; 84443; 85025; 86704; 86706; 86735; 86762; 86765; 86787; 86803; 87340

== ENCOUNTER 2025-04-08 12:47 | Outpatient (REF) | payer OTHER, SELFPAY ==
--- NOTE | ~2025-04-08 | US_ITS ---
CLINICAL HISTORY: R79.89 - Other specified abnormal findings of blood chemistry --- Additional Notes or Special Instructions: LFT elevation US abdomen complete Comparison: None Findings: The visualized pancreas is normal. The aorta and inferior vena cava are normal caliber. The liver is normal in size and echotexture. There is no intrahepatic bile duct dilatation. The common duct is 3 mm in diameter. The gallbladder is normal. There is no sonographic [place] sign. The main portal vein is antegrade. The right kidney is 10.2 cm in length. The left kidney is 10.5 cm in length. The spleen is normal. No ascites. IMPRESSION: 1. Normal complete abdominal ultrasound. This document has been electronically signed by: Nikky Russell MD on 04/09/2025 13:05:01
== END 2025-04-08 12:48 | disposition home or self-care (01) ==
LOC: HO.HMGCX 12:47
PROVIDERS: PCP Internal Medicine; Visit Provider Internal Medicine
DX: R79.89 Other specified abnormal findings of blood chemistry (principal)
CPT/HCPCS: 76700

== ENCOUNTER → 2025-04-08 13:00 | Outpatient (BNV) | payer OTHER, SELFPAY | PROVIDERS: PCP Internal Medicine; Visit Provider Radiology Diagnostic Radiology | DX: R74.01 Elevation of levels of liver transaminase levels (principal) | CPT/HCPCS: 76700 ==

== ENCOUNTER 2025-04-17 09:14 | Day surgery (SDC) | payer OTHER, SELFPAY ==
[2025-04-15 11:16] VITALS: BMI 23.0
--- NOTE | 2025-04-16 09:59 | HO.ANESPROP2 ---
Documented by User: Gisselle Diego NP 04/16/25 10:08 HPI - Anesthesia Eval Consult details Narrative: 64yo F for Colonoscopy Follows [facility] [place] Cardiology for stable CAD, PVCs. Last office visit 07/2024 with prn f/u PMFSH Active Problems Active Problems: All Active Problems LFT elevation (Acute) Hearing deficit (Acute) Pre-op chest exam (Acute) Tinnitus (Acute) Low back pain (Acute) Ascending aorta dilatation (Acute) Overweight (BMI 25.0-29.9) (Acute) Annual physical exam (Acute) Atherosclerotic cardiovascular disease (Acute) Obstructive sleep apnea (Acute) Left foot pain (Acute) Hypercholesterolemia (Acute) Atypical ductal hyperplasia of right breast (Acute) Past Medical History Medical History Ascending aorta dilatation PVC (premature ventricular contraction) PAC (premature atrial contraction) Atypical ductal hyperplasia of right breast Abnormal myocardial perfusion study Family history of malignant neoplasm of breast Diverticular disease Coronary artery disease Vitamin D deficiency Urge incontinence Hypercholesterolemia Anxiety Family History Family History Mother Hx of cancer of lung Paternal Aunt HX: breast cancer Maternal Aunt History of esophageal cancer HX: breast cancer Father Myocardial infarct Brother Parkinson disease Other Substance abuse Surgical History Surgical History H/O colonoscopy History of myomectomy Hx of right breast biopsy History of lumpectomy of right breast (~2008) Hx of section Hx of tonsillectomy Social History Social History Housing: House Alcohol intake: current Alcohol intake frequency: holidays/special occasions only Alcohol type: wine Comment: 2 days week 4 glasses , 1 day a week 1 bottle -3-4 glasses Patient Tobacco Use Status: Former Tobacco user Tobacco use type: Cigarette Years Smoked: quit 1998 e-Cigarette/Vaping Use: Never Used Second Hand Smoke Exposure: No Use of substances other than those prescribed or required for medical reasons: No Are you DNR?: No Advance Directives: No Advance Directives Information Provided: Yes Patient : No : No Poor oral hygiene: No Current occupational status: employed Cognitive needs: No Hearing needs: No Vision needs: Yes Meds Allergies Allergy/AdvReac Type Severity Reaction Status Date / Time adhesive [ADHESIVE] Allergy Intermediate ITCHING Verified 03/17/25 10:04 Penicillins [PENICILLINS] Allergy Intermediate RASH Verified 03/17/25 10:04 Home Medications ?Medication ?Instructions ?Recorded ?Confirmed ?Last Taken ?Type cholecalciferol (vitamin D3) 50 50 mcg PO DAILY 11/24/20 04/15/25 Unknown History mcg (2,000 unit) capsule valacyclovir 1 gram tablet mg PO PRN 07/15/21 03/17/25 Unknown History Exam Height,Weight and Vital Signs: Height 5 ft 4 in Weight 60.781 kg Pertinent Lab Results Pertinent Lab Results: Laboratory Tests 03/18/25 09:50 WBC 3.8 L Hgb 12.4 Hct 38.3 Plt Count 215 Sodium 143 Potassium 4.0 Chloride 110 H Carbon Dioxide 25 BUN 15 Creatinine 0.73 Narrative Narrative: ECHO 04/2023 Conclusions: - Normal left ventricular size, thickness, systolic function, and wall motion. The visually estimated ejection fraction is between 55-60%. Diastolic function is normal for age. - Normal right ventricular cavity size and systolic function. - There is mild dilatation of the sinuses of Valsalva measuring 3.61 cm and mild dilatation of the ascending aorta measuring 3.30 cm. EKG 2023 Details: EKG with underlying sinus rhythm at 63/Min; low-voltage QRS complexes; normal MN and corrected QT. Per 07/2024 cardiac office visit: Cardiac studies reviewed. Echocardiogram with normal LVEF, 60-65% and otherwise unremarkable. Myocardial perfusion imaging study in the past reported to have possible anterior/apical ischemia. Coronary CTA was suboptimal due to motion artifact. No significant coronary artery calcification. No significant stenosis in the left main, proximal LAD, proximal circumflex and proximal right coronary artery. Remainder were not seen well due to motion. Subtle hypo enhancement at the apex due to artifact or old infarct. Holter in the past with sinus rhythm, sinus tachycardia, rare supraventricular/ventricular ectopy. Assessment and Plan Assessment Anesthesia Assessment: Chart Reviewed Documented by User: Jakob Maldonado MD 04/17/25 11:14 [facility] Past Medical History Medical History Ascending aorta dilatation PVC (premature ventricular contraction) PAC (premature atrial contraction) Atypical ductal hyperplasia of right breast Abnormal myocardial perfusion study Family history of malignant neoplasm of breast Diverticular disease Coronary artery disease Vitamin D deficiency Urge incontinence Hypercholesterolemia Anxiety Functional capacity: independent ambulation Patient : No Family History Family History Mother Hx of cancer of lung Paternal Aunt HX: breast cancer Maternal Aunt History of esophageal cancer HX: breast cancer Father Myocardial infarct Brother Parkinson disease Other Substance abuse Family history of problems with anesthesia: No Surgical History Surgical History H/O colonoscopy History of myomectomy Hx of right breast biopsy History of lumpectomy of right breast (~2008) Hx of section Hx of tonsillectomy History of Problems with Anesthesia: No Social History Social History Housing: House Alcohol intake: current Alcohol intake frequency: holidays/special occasions only Alcohol type: wine Comment: 2 days week 4 glasses , 1 day a week 1 bottle -3-4 glasses Patient Tobacco Use Status: Former Tobacco user Tobacco use type: Cigarette Years Smoked: quit 1998 e-Cigarette/Vaping Use: Never Used Second Hand Smoke Exposure: No Use of substances other than those prescribed or required for medical reasons: No Are you DNR?: No Advance Directives: No Advance Directives Information Provided: Yes Patient : No : No Poor oral hygiene: No Current occupational status: employed Cognitive needs: No Hearing needs: No Vision needs: Yes Meds Allergies Allergy/AdvReac Type Severity Reaction Status Date / Time adhesive [ADHESIVE] Allergy Intermediate ITCHING Verified 03/17/25 10:04 Penicillins [PENICILLINS] Allergy Intermediate RASH Verified 03/17/25 10:04 Home Medications ?Medication ?Instructions ?Recorded ?Confirmed ?Last Taken ?Type cholecalciferol (vitamin D3) 50 50 mcg PO DAILY 11/24/20 04/15/25 Unknown History mcg (2,000 unit) capsule valacyclovir 1 gram tablet mg PO PRN 07/15/21 03/17/25 Unknown History Exam Exam Date and Time: 17 April 2025 Airway Mallampati Class: II TM Dist: >3cm Neck ROM: Full Loose/Missing/Broken Teeth: No Heart: rrr Lungs: cta Assessment and Plan Final Anesthetic Review Family History of Problems with Anesthesia: No History of Problems with Anesthesia: No NPO: Yes ASA Class: II Final Preanesthetic Review: No Changes in Pt Med Stat, Meds/Allgs Chart Reviewed, Consent Obtained/Reviewed and Anes Risks/Benef Reviewed Patient Risk: Low Procedure Risk: Low Anesthetic Plan Anesthetic Plan: MAC: Disposition: Standard PACU
[2025-04-17 09:52] VITALS: BMI 22.2
--- NOTE | 2025-04-17 10:00 | MHC.SHP ---
Pre-Procedural Eval Section A - 24 Hr Update-Section A only Date of Service: 04/17/25 Section B - Complete if H&P > 30 days Chief Complaint: screening Details of Present Illness: COVID-19 virus infection Annual physical exam Impacted cerumen, left ear Colon cancer screening Chest pain PVC (premature ventricular contraction) PAC (premature atrial contraction) Atypical ductal hyperplasia of right breast Abnormal mammogram of right breast Breast calcification, right Abnormal myocardial perfusion study Family history of malignant neoplasm of breast Bacterial vaginosis Cervical cancer screening Diverticular disease Coronary artery disease Vitamin D deficiency Urge incontinence Hypercholesterolemia Anxiety Surgical History (Updated 11/21/24 @ 13:33 by LISA Bah) H/O colonoscopy History of myomectomy Hx of right breast biopsy History of lumpectomy of right breast (~2008) Hx of section Hx of tonsillectomy Allergies: Allergies Allergy/AdvReac Type Severity Reaction Status Date / Time adhesive [ADHESIVE] Allergy Intermediate ITCHING Verified 03/17/25 10:04 Penicillins [PENICILLINS] Allergy Intermediate RASH Verified 03/17/25 10:04 Review of Systems Review of Systems Comment: Ten point ROS negative Exam Exam Comment: Gen appear: No acute distress HEENT: no icterus Chest: No overt resp distress Abd: soft, nontender, nondistended Psych: Stable affect, answering questions appropriately Neuro: A/Ox3 noted to move all extremities spontaneously Ext: no peripheral edema Plan Diagnosis/Plan: Unchanged I have reviewed the history and physical and performed a pertinent physical examination on my patient. No changes have occurred unless specified. Time Spent With Patient Time: Total time managing care of this patient today ____ minutes.
[2025-04-17 10:07] VITALS: BP 129/63; PULSE 78; RESP 16; TEMP 36.6; O2SAT 96
[2025-04-17] MEDS: Lactated Ringers 1,000 ML 100 ML IVCONT (10:18)
--- NOTE | 2025-04-17 11:31 | P.OPN-COLO_ITS ---
Colonoscopy Operative Note Operative Note Date of Service: 04/17/25 Narrative: Procedure: Colonoscopy Indication: Screening Endoscopist: Genevieve Naik MD Anesthesia Provider: Dr Maldonado Anesthesia type: MAC Instrument: Olympus [id number]-[id number] Consent: Indication, risks vs benefits, and alternatives were discussed with the patient who gave written informed consent to proceed. EKG, pulse, pulse oximetry and blood pressure were monitored throughout the procedure. Please see anesthesia flowsheet. Procedure: The patient was brought to the procedure room and placed in the left lateral decubitus position. An abdominal binder was affixed to the lower abdomen. IV medications were administered by the anesthesia provider in attendance. A digital rectal exam was performed which was abnormal due to finding of hemorrhoids. A distal attachment cap was affixed to the tip of the colonoscope which was then inserted through the anus and advanced through the colon to the cecum at 70 cm,and terminal ileum. Appendiceal orifice and ileocecal valve were identified. Mucosa was carefully examined under high definition white light as the instrument was slowly withdrawn in a retrograde panoramic fashion. Retroflexion was performed in ascending colon and rectum. The procedure was not difficult. There were no immediate obvious complications. The quality of the prep was BBPS: 3+2+3 = adequate Withdrawal time 6 minutes. Limitations: No limitations. Findings: Mucosa: Normal to cecum and terminal ileum. Protruding lesions: * Large internal hemorrhoids without stigmata of recent bleeding. Excavated lesions: * Moderate diverticulosis of sigmoid colon. Impression: 1. Normal colon and terminal ileum mucosa 2. Diverticulosis 3. External and internal hemorrhoids Recommendations: - repeat colonoscopy for asymptomatic colorectal cancer screening in 10 years - add fiber - Anusol suppositories at nighttime for 7-10 days Above has been reviewed with the patient
[2025-04-17 11:37] VITALS: BP 104/59; PULSE 89; RESP 20; TEMP 37; O2SAT 100
[2025-04-17 11:52] VITALS: BP 105/62; PULSE 65; RESP 16; TEMP 36.5; O2SAT 100
== END 2025-04-17 12:23 | disposition home or self-care (01) ==
PROVIDERS: PCP Internal Medicine; Visit Provider Internal Medicine
PROC: 0DJD8ZZ Inspection of Lower Intestinal Tract, Via Natural or Artificial Opening Endoscopic (ICD-10-PCS; CPT 45378; principal; 2025-04-17 12:10)
DX: Z12.11 Encounter for screening for malignant neoplasm of colon (principal); K57.30 Diverticulosis of large intestine without perforation or abscess without bleeding; K64.8 Other hemorrhoids; K64.4 Residual hemorrhoidal skin tags; I25.10 Atherosclerotic heart disease of native coronary artery without angina pectoris; I49.3 Ventricular premature depolarization; I49.1 Atrial premature depolarization; I71.21 Aneurysm of the ascending aorta, without rupture; E78.00 Pure hypercholesterolemia, unspecified; E55.9 Vitamin D deficiency, unspecified; G47.33 Obstructive sleep apnea (adult) (pediatric); N39.41 Urge incontinence; F41.9 Anxiety disorder, unspecified; Z88.0 Allergy status to penicillin; L23.1 Allergic contact dermatitis due to adhesives; Z79.899 Other long term (current) drug therapy; Z99.89 Dependence on other enabling machines and devices; Z98.890 Other specified postprocedural states; Z87.891 Personal history of nicotine dependence
CPT/HCPCS: 45378; J2003; J2704; J3010

== ENCOUNTER → 2025-04-17 09:14 | Outpatient (BNV) | payer OTHER, SELFPAY | PROVIDERS: PCP Internal Medicine; Visit Provider Internal Medicine | DX: Z12.11 Encounter for screening for malignant neoplasm of colon (principal); K57.30 Diverticulosis of large intestine without perforation or abscess without bleeding; K64.8 Other hemorrhoids | CPT/HCPCS: 45378 ==

== ENCOUNTER 2025-04-18 10:05 | Outpatient (REF) | payer OTHER, SELFPAY ==
--- OUTSIDE RECORDS SUMMARY | 2025-04-18 10:48 | XMS_ITS | Patient Health Record ---
Author Organization [facility] Address [address] [place] [address] Care Team Providers Care Insurance Administrator Name Role Phone nAgie Hernandez Primary Care Provider Jazmín Neely Unavailable [phone] Allergies Allergen (clinical drug ingredient) Drug/Non Drug Allergy documented on EMR Reaction Allergy Type Onset Date Status Adhesive itchy Allergy Active Penicillin rash Drug Allergy Active Reason For Referral No Information Medications Medication SIG (Take, Route, Fr equency, Duration) Notes Start Date End Date Status Atorvastatin Calcium Active Aspirin Active ALPRAZolam Active Valtrex Active Vitamin D3 Active Vitamin B 12 Active Social History Tobacco Use: Social History Observation Description Date Details (start date - stop date) Former Smoker NA - NA Tobacco Use/Smoking Question Answer Notes Are you a: former smoker Additional Findings: Tobacco Non-User Current no n-smoker Alcohol Screen Question Answer Notes Did you have a drink contain ing alcohol in the past year? Yes How often did you have a dri nk containing alcohol in the past year? 2 to 4 times a month (2 points) How often did you have 6 or more drinks on one occasion in the past year? Monthly (2 points) Points 4 Interpretation Positive Tobacco use other than smoking: Question Answer Notes Are you an other tobacco user? No Plan Of Treatment No Information Insurance Providers Payer Name Payer Address Payer Phone Subscriber Number Group Number Insured Name Patient Relationship to Insured Coverage Start Date Coverage End Date [facility] [address] [place] [address] [phone] [id number] Neo Moulton Spouse - patient is the spouse of the insured Medical (General) History Medical History History ICD Code Anemia Anxiety CAD (Cholesterol) Depression Heart disease Warts Chicken pox Sleep apnea cpap Surgical History Surgery Date(Month/Year) Tonsillectomy 1981 Fibroid removal 1987 06/09/2000 Excision Biopsy 2008
[2025-04-18 14:59] LABS: Alanine Aminotransferase 22 U/L (0-31); Albumin Level 4.2 g/dL (3.5-5.0); Alkaline Phosphatase 54 U/L (39-117); Aspartate Amino Transferase 34 U/L (5-31); Bilirubin Direct 0.4 mg/dL (0.0-0.5); Total Protein 6.6 g/dL (6.5-8.0)
[2025-04-19 04:35] LABS: HBS Num1 2.17 mIU/mL (0-7.99); HBc Num1 0.13 S/CO (0.00-0.79); Hepatitis B Core Antibody Nonreactive (Nonreactive); Hepatitis B Surface Antigen Negative (Negative); ~HepC Num1 0.11 S/CO (0.00-0.79); ~Hepatitis B Surface Antibody NONREACTIVE (Nonreactive); ~Hepatitis C Antibody Nonreactive (Nonreactive)
== END 2025-04-18 10:06 | disposition home or self-care (01) ==
LOC: HO.HMGCLDS 10:05
PROVIDERS: PCP Internal Medicine; Visit Provider Internal Medicine
DX: R79.89 Other specified abnormal findings of blood chemistry (principal)
CPT/HCPCS: 36415; 80076; 86704; 86706; 86803; 87340

== ENCOUNTER 2025-07-04 09:46 | Outpatient (REF) | payer OTHER, SELFPAY ==
--- OUTSIDE RECORDS SUMMARY | 2025-07-04 09:48 | XMS_ITS | Patient Health Record ---
[facility] Address [address] [place] [address] Care Team Providers Care Genetics Physician Name Role Phone Angie Hernandez Primary Care Provider Jazmín Neely Unavailable [phone] Allergies Allergen (clinical drug ingredient) Drug/Non Drug [...] Insured Coverage Start Date Coverage End Date [facility] [address] [place] [address] [phone] [id number] Neo Moulton Spouse - patient is the spouse of the insured Medical (General) History Medical History History ICD Code Anemia Anxiety CAD (Cholesterol) Depression Heart disease Warts Chicken pox Sleep apnea cpap Surgical History Surgery Date(Month/Year) Tonsillectomy 1981 Fibroid removal 1987 06/09/2000 Excision Biopsy 2008
== END 2025-07-04 09:47 | disposition home or self-care (01) ==
LOC: HO.SH 09:46
PROVIDERS: Visit Provider Internal Medicine
DX: Z01.118 Encounter for examination of ears and hearing with other abnormal findings (principal); H90.3 Sensorineural hearing loss, bilateral
CPT/HCPCS: 92552; 92556; 92567

== ENCOUNTER 2025-08-12 09:04 | Outpatient (AMB) | payer OTHER, SELFPAY ==
--- NOTE | 2025-08-12 09:08 | A.OFFVIS_ITS ---
Vital Signs 3 08/12/25 09:13 Height 5 ft 4 in Weight 135 lb BMI 23.2 BP 111/55 L Blood Pressure Location Lt brachial Position Sitting Pulse 64 Intake Visit Reasons: 6 month follow up, breast exam Intake Note: Patient is seen in office for 6 month follow up visit, breast exam. Pt c/o: no breast concerns. Denies lumps, tenderness, itch, nipple discharge. Reports no changes in medical hx since last visit. mm sched:01/13/26 MRI: 07/10/24 (DUE) Medical Transcription Supervisor Required: No Accompanied by: Self / Same As Patient Allergies adhesive (ADHESIVE) Allergy (Intermediate, Verified 08/12/25 09:13) ITCHING Penicillins (PENICILLINS) Allergy (Intermediate, Verified 08/12/25 09:13) RASH Medication List - Last Reconciled 08/12/25 by Rolando Melendez MD alprazolam 0.25 mg PO DAILY PRN aspirin 81 mg PO DAILY atorvastatin 40 mg PO DAILY cholecalciferol (vitamin D3) 50 mcg PO DAILY cyanocobalamin (vitamin B-12) 1,000 mcg PO 2 x a week; hydrocortisone 2.5% 1 appl NM BEDTIME PRN 14 days valacyclovir mg PO PRN HPI Comments Details: 64-year-old female patient, former patient of Dr. Parker and Nereyda, returning for a high risk breast follow-up examination. She has a prior history of a right lumpectomy for atypical ductal hyperplasia in 2007. In 2015 she underwent a MR guided biopsy of the right breast which was benign. An abnormal cluster of calcifications was identified in the right breast in November 2021. She subsequently underwent a stereotactic guided core biopsy which also was benign. She has a family history of breast cancer in a maternal aunt identified at the age of 50 with recurrence at the age of 70. She also has a paternal aunt with breast cancer the age of 62. Her Tyrer-Cuzick remaining lifetime risk of breast cancer was determined to be 26% placing her at a high risk for breast cancer. She has been undergoing twice yearly breast examinations, yearly mammograms and yearly breast MRIs. Her last breast MRI of 08/20/2024 revealed no MR specific evidence of malignancy (BI-RADS 2 right, BI-RADS 1 left). Mammogram of 01/07/2025 revealed no mammographic evidence of malignancy (BI-RADS 2). She feels well and denies any ongoing breast symptoms on either side. Previous genetic testing reported on 08/29/2020 revealed no deleterious mutations or variants of unknown significance. She is , never breast fed, menarche age 13, menopause age 48. [facility] Medical History Ascending aorta dilatation PVC (premature ventricular contraction) PAC (premature atrial contraction) Atypical ductal hyperplasia of right breast Abnormal myocardial perfusion study Family history of malignant neoplasm of breast Diverticular disease Coronary artery disease Vitamin D deficiency Urge incontinence Hypercholesterolemia Anxiety Surgical History H/O colonoscopy History of myomectomy Hx of right breast biopsy History of lumpectomy of right breast (~2008) Hx of section Hx of tonsillectomy Family History Mother Hx of cancer of lung Paternal Aunt HX: breast cancer Maternal Aunt History of esophageal cancer HX: breast cancer Father Myocardial infarct Brother Parkinson disease Other Substance abuse Social History Housing: House Alcohol intake: current Alcohol intake frequency: holidays/special occasions only Alcohol type: wine Patient Tobacco Use Status: Former Tobacco user Tobacco use type: Cigarette Years Smoked: quit 1998 e-Cigarette/Vaping Use: Never Used Second Hand Smoke Exposure: No Current occupational status: employed Cognitive needs: No Hearing needs: No Vision needs: Yes Female Reproductive History Menstrual Age of Menarche: 13 Review of Systems Const All systems reviewed & are unremarkable except as noted in HPI and below Card Denies dyspnea Resp Denies chest congestion, Denies cough, Denies hemoptysis and Denies dyspnea Denies nipple discharge Skin/Breast Denies bleeding lesions, Denies breast swelling, Denies breast skin changes, Denies breast pain, Denies breast mass, Denies change in breast shape and Denies nipple discharge Brian/Lymph Denies lymphadenopathy Physical Exam Const General: no acute distress and well developed Nutritional Appearance: well nourished Orientation/consciousness: patient oriented x3 Limitations: no limitations Chest Other: Left breast: No skin change, no nipple retraction, no nipple discharge, no palpable mass, no enlarged lymph nodes. Right breast: No skin change, no nipple retraction, no nipple discharge, no palpable mass, no enlarged lymph nodes, well-healed incision in the upper outer quadrant Chest/axillae images: 2 1. Incision right breast the upper outer quadrant Skin General skin exam: no rashes or lesions noted Neuro Other: Mobility Assessment: 1. 3 meter assessment time (seconds) 5 2. Gait observations: Normal balance and gait General: patient oriented x3 Extrem General: No edema Assessment & Plan Assessment & Plan (1) At high risk for breast cancer: Code(s): Z91.89 - Other specified personal risk factors, not elsewhere classified Category: Medical (2) Atypical ductal hyperplasia of right breast: Comment: December 2023 Code(s): N60.91 - Unspecified benign mammary dysplasia of right breast Category: Medical (3) Family history of malignant neoplasm of breast: Code(s): Z80.3 - Family history of malignant neoplasm of breast Category: Medical Plan 64-year-old female patient determined to be at high risk for breast cancer due to both previous history of atypical ductal hyperplasia of the right breast and a family history in a maternal and paternal aunt, found to have a [facility] risk of breast cancer in her remaining life at 28%. Examination today revealed no suspicious findings in either breast. Her most recent breast MRI of 08/20/2024 revealed no MR specific suspicious findings (BI-RADS 2 right, BI-RADS 1 left). Mammogram of 01/07/2025 revealed no mammographic evidence of malignancy (BI-RADS 2). She will be scheduled for a breast MRI next month. I recommended continuing the yearly mammogram and MRI alternating every 6 months. She should return in 6 months for follow-up breast examination, sooner p.r.n.. Orders: Orders 2 MR breast BI wo/w con 08/21/25 N60.91 - Unspecified benign mammary dysplasia of right breast, Z91.89 - Other specified personal risk factors, not elsewhere classified Coding Level of Care Code Est Pt Level 3 (80967) Complex EM visit Add On G2211 Diagnoses At high risk for breast cancer Z91.89 Atypical ductal hyperplasia of right breast N60.91 Family history of malignant neoplasm of breast Z80.3
[2025-08-12 09:13] VITALS: BP 111/55; PULSE 64; BMI 23.2
--- OUTSIDE RECORDS SUMMARY | 2025-08-12 09:47 | XMS_ITS | Patient Health Record ---
[facility] Address [address] [place] [address] Care Team Providers Care Engineering Programmer Name Role Phone Angie Hernandez Primary Care Provider Jazmín Neely Unavailable [phone] Allergies Allergen (clinical drug ingredient) Drug/Non Drug [...] Insured Coverage Start Date Coverage End Date [facility] [address] [place] [address] [phone] [id number] Neo Moulton Spouse - patient is the spouse of the insured Medical (General) History Medical History History ICD Code Anemia Anxiety CAD (Cholesterol) Depression Heart disease Warts Chicken pox Sleep apnea cpap Surgical History Surgery Date(Month/Year) Tonsillectomy 1981 Fibroid removal 1987 06/09/2000 Excision Biopsy 2008
== END 2025-08-12 09:20 | disposition home or self-care (01) ==
LOC: HO.HGS 09:04
PROVIDERS: PCP Internal Medicine; Visit Provider Surgery
DX: Z91.89 Other specified personal risk factors, not elsewhere classified (principal); N60.91 Unspecified benign mammary dysplasia of right breast; Z80.3 Family history of malignant neoplasm of breast
CPT/HCPCS: 99213; G2211

== ENCOUNTER → 2025-09-11 12:27 | Outpatient (BNV) | payer OTHER, SELFPAY | PROVIDERS: PCP Internal Medicine; Visit Provider Radiology Body Imaging | DX: N60.91 Unspecified benign mammary dysplasia of right breast (principal) | CPT/HCPCS: 77049 ==

== ENCOUNTER 2025-09-11 12:42 | Outpatient (REF) | payer OTHER, SELFPAY ==
--- NOTE | ~2025-09-11 | MR_ITS ---
EXAMINATION: MR BREAST WITHOUT AND WITH CONTRAST, BILATERAL CLINICAL INFORMATION: N60.91 - Unspecified benign mammary dysplasia of right breast -Right breast MR guided needle core biopsy on April 15, 2016 with pathology results showing benign breast tissue with focal adenosis, stromal fibrosis and microcalcifications. Trimark cylinder clip. -Right breast stereotactic needle core biopsy on December 04, 2021. Pathology results showed benign breast tissue with fibroadenomatous change, the necrosis and calcifications. SecurMark T-shaped marker. COMPARISON: Screening mammogram on January 07, 2025. Breast MRI on August 20, 2024. Breast MRI on July 10, 2023. Breast MRI on June 01, 2022. TECHNIQUE: Siemens Magnetom Altea 1.5 T utilized. MR imaging of the breast was performed using T1, T2 and fat saturated techniques. Dynamic multiphase imaging was performed with 4 sequences after the administration of 6 cc of intravenous gadolinium contrast agent Gadavist 3D image processing was performed using the diagnostic workstation (invendo medical software) with real-time multiplanar image reformation and maximum intensity projection ray tracing. Kinetic curves were obtained. FINDINGS: Breast composition: Heterogeneous fibroglandular tissue. Mild background parenchymal enhancement. RIGHT BREAST: Multiple foci of susceptibility artifact, most likely from prior biopsies; one of them located along the 12 o'clock position posterior depth probably represents one of the tissue markers (7:72/126). No suspicious masses or areas of non mass enhancement. No architectural distortion. No axillary or internal mammary adenopathy. LEFT BREAST: No suspicious masses or areas of non mass enhancement. No architectural distortion. No axillary or internal mammary adenopathy. Limited views of the chest and abdomen redemonstrates known T2 hyperintense hepatic cysts (2:67/68), unchanged from 2022; no additional imaging follow-up needed. MR/MR breast BI wo/w con IMPRESSION: BILATERAL BREASTS: No MR specific evidence of malignancy. ASSESSMENT: BIRADS 2: Benign RECOMMENDATIONS: Yearly screening mammography Yearly Breast MRI screening surveillance. Electronically signed by: Augusto Gilbert MD 09/12/2025 03:30 PM EDT
--- OUTSIDE RECORDS SUMMARY | 2025-09-11 15:36 | XMS_ITS | Patient Health Record ---
[facility] Address [address] [place] [address] Care Team Providers Care Hand Sprayer Name Role Phone Angie Hernandez Primary Care Provider Jazmín Neely Unavailable [phone] Allergies Allergen (clinical drug ingredient) Drug/Non Drug [...] Insured Coverage Start Date Coverage End Date [facility] [address] [place] [address] [id number] Neo Moulton Spouse - patient is the spouse of the insured Medical (General) History Medical History History ICD Code Anemia Anxiety CAD (Cholesterol) Depression Heart disease Warts Chicken pox Sleep apnea cpap Surgical History Surgery Date(Month/Year) Tonsillectomy 1981 Fibroid removal 1987 06/09/2000 Excision Biopsy 2008
== END 2025-09-11 12:43 | disposition home or self-care (01) ==
LOC: HO.MRI 12:42
PROVIDERS: PCP Internal Medicine; Visit Provider Surgery
DX: Z91.89 Other specified personal risk factors, not elsewhere classified (principal); N60.91 Unspecified benign mammary dysplasia of right breast
CPT/HCPCS: 77049; A9585

== ENCOUNTER 2025-09-17 09:55 | Outpatient (AMB) | payer OTHER, SELFPAY ==
--- NOTE | 2025-09-17 09:58 | MHC.PC.OV ---
Vital Signs 09/17/25 10:02 Height 5 ft 4 in Weight 134 lb BMI 23.0 BP 130/70 Blood Pressure Location Lt brachial Position Sitting Pulse 72 Pulse Source Pulse Oximeter Pulse Oximetry (%) 98 Oxygen Delivery Method Room Air Intake Visit Reasons: CAD, hypercholesterol Allergies adhesive (ADHESIVE) Allergy (Intermediate, Verified 09/17/25 10:04) ITCHING Penicillins (PENICILLINS) Allergy (Intermediate, Verified 09/17/25 10:04) RASH Tobacco use date assessed: 03/17/25 Dental Screening Dental Screen Date: 03/17/25 HPI CAD, hypercholesterol HPI Details bruise L hi[p area 6 cm round. slipped at home no head trauma. [facility] Medical History Ascending aorta dilatation PVC (premature ventricular contraction) PAC (premature atrial contraction) Atypical ductal hyperplasia of right breast Abnormal myocardial perfusion study Family history of malignant neoplasm of breast Diverticular disease Coronary artery disease Vitamin D deficiency Urge incontinence Hypercholesterolemia Anxiety Surgical History H/O colonoscopy History of myomectomy Hx of right breast biopsy History of lumpectomy of right breast (~2008) Hx of section Hx of tonsillectomy Family History Mother Hx of cancer of lung Paternal Aunt HX: breast cancer Maternal Aunt History of esophageal cancer HX: breast cancer Father Myocardial infarct Brother Parkinson disease Other Substance abuse Social History Housing: House Alcohol intake: current Alcohol intake frequency: holidays/special occasions only Alcohol type: wine Patient Tobacco Use Status: Former Tobacco user Tobacco use type: Cigarette Years Smoked: quit 1998 e-Cigarette/Vaping Use: Never Used Second Hand Smoke Exposure: No Current occupational status: employed Cognitive needs: No Hearing needs: No Vision needs: Yes Female Reproductive History Menstrual Age of Menarche: 13 Questionnaire Thrive Questionnaire Date Thrive assessed: 03/10/25 I am a: Patient What is your living situation today?: I have a steady place to live Within the past 12 months, did the food you bought not last and you didn't have the money to get more?: Never true Within the past 12 months, did you worry whether your food would run out before you got money to buy more?: Never true Do you have trouble paying for medicines?: No Do you have trouble getting transportation to medical appointments?: No Do you have trouble paying your heating and electricity bill?: No Do you have trouble taking care of your child, family member or friend?: No Do you have trouble with day-to-day activities such as bathing, preparing meals, shopping, managing finances, etc.?: No Are you currently unemployed and looking for a job?: No Are you interested in more education?: No Please select the resources that you would like help with: None Currently or been in a relationship where the following occur: No concerns reported THRIVE Score: 0 RUBIN-7 AMB Questionnaire RUBIN-7 Date RUBIN - 7 assessed: 03/07/24 Source: Developed by Drs. Felipe Dickinson, Jane Howard, Ernesto Gill and colleagues, with an educational juancho from [employer]. Physical exam (Primary Care) Vital Signs: Last Vital Signs Pulse 72 09/17/25 10:02 BP 130/70 09/17/25 10:02 Pulse Ox 98 09/17/25 10:02 Oxygen Delivery Method Room Air 09/17/25 10:02 BMI result Body Mass Index 23.0 Tobacco/Smoking Status: Tobacco use Status Tobacco use date assessed 03/17/25 09/17/25 10:00 Patient Tobacco Use Status Former Tobacco user 09/17/25 10:00 Tobacco use type Cigarette 09/17/25 10:00 e-Cigarette/Vaping Use Never Used 09/17/25 10:00 Thrive Assessment: Date of Thrive Assessment Date Thrive assessed 03/10/25 09/17/25 10:00 Currently or been in a relationship where the following occur: No concerns reported Const General: alert; No acute distress Eyes Conjunctivae: conjunctivae normal Resp Auscultation: clear to auscultation bilaterally Cardio Rate: regular rate Rhythm: regular rhythm GI Inspection: Yes normal to inspection Extrem General: Yes normal to inspection and No edema Immunizations Tenivac (PF) 5 Lf unit-2 Lf unit/0.5 mL intramuscular suspension Performing Provider: Angie Hernandez MD [facility] Administered by: Helga Taveras CMA on 09/17/25 10:48 Dose Route Admin Location Dispensed Lot Number Expiration Date NDC Hvac Designer 0.5 mL IM Left Deltoid 0.5 mL [id number] 02/11/27 [id number] [employer] Total Dispensed Waste 0.5 mL 0 % VIS Given Date VIS Provided VIS Publication Date 09/17/25 Single Vaccine 21 Eligibility Eligibility Date Funding Source Not [facility] Eligible 09/17/25 Private Coding Level of Care Code Est Pt Level 4 (90174) Complex EM visit Add On G2211 Diagnoses Atherosclerotic cardiovascular disease I25.10 Ascending aorta dilatation I77.810 Hypercholesterolemia E78.00 LFT elevation R79.89 Atypical ductal hyperplasia of right breast N60.91 Obstructive sleep apnea G47.33 Assessment & Plan Assessment & Plan (1) Atherosclerotic cardiovascular disease: Code(s): I25.10 - Atherosclerotic heart disease of [place] coronary artery without angina pectoris Category: Medical Plan: Control the cholesterol, weight, blood pressure, patient on aspirin 81 mg once a day (2) Ascending aorta dilatation: Comment: 04/2023Jun2022 Normal left ventricular size, thickness, systolic function, and wall motion. The visually estimated ejection fraction is between 55-60%. Diastolic function is normal for age. - Normal right ventricular cavity size and systolic function. - There is mild dilatation of the sinuses of Valsalva measuring 3.61 cm and mild dilatation of the ascending aorta measuring 3.30 Code(s): I77.810 - Thoracic aortic ectasia Category: Medical Plan: Last testing done in April 2023 mild at 3.3 cm (3) Hypercholesterolemia: Code(s): E78.00 - Pure hypercholesterolemia, unspecified Category: Medical Plan: Avoid fried foods, chicken skin, eggs, butter margarine, pastries and meat. Be it pork or beef they have a lot of cholesterol LDL goal of less than 70 and triglyceride of less than 150 on atorvastatin 40 mg once a day (4) LFT elevation: Code(s): R79.89 - Other specified abnormal findings of blood chemistry Category: Medical Plan: Ultrasound as well as hepatitis profile negative. Will follow this up (5) Atypical ductal hyperplasia of right breast: Comment: December 2023 Code(s): N60.91 - Unspecified benign mammary dysplasia of right breast Category: Medical Plan: Continuing with surgery schedules and MRI of the breast surveillance (6) Obstructive sleep apnea: Comment: CPAP use 08/2022 Code(s): G47.33 - Obstructive sleep apnea (adult) (pediatric) Category: Medical Plan: Continue to use the CPAP more than 4 hours a night and benefits from this. Plan History of Present Illness The patient is a 64-year-old female presenting for a follow-up visit for management of multiple chronic conditions and health maintenance. The patient has a history of atypical ductal hyperplasia of the right breast, diagnosed in 2023, and is followed by a breast surgeon. Her surveillance includes alternating mammograms and MRIs; a breast MRI on September 11 was benign, and her next mammogram is due in December 2024. Her cardiovascular history is significant for atherosclerotic cardiovascular disease, for which she takes aspirin 81 mg daily. An echocardiogram in April 2023 revealed mild dilatation of the ascending aorta at 3.3 cm. She also has a history of hypercholesterolemia, managed with atorvastatin 40 mg daily, with a recent LDL of 70 mg/dL. The patient was diagnosed with obstructive sleep apnea in 2021 and reports consistent use of her CPAP for more than 4 hours nightly with benefit. Her last colonoscopy in April revealed diverticular disease and hemorrhoids but was otherwise normal, with a recommendation for repeat testing in 10 years. Blood work from March showed an intermittent mild leukopenia and macrocytosis, but was otherwise normal. She had a transient elevation in liver enzymes, thought to be related to clindamycin use, which has since resolved with a normal abdominal ultrasound and negative hepatitis panel. Her B12, vitamin D, folic acid, and thyroid levels are within normal limits. Immunization history is notable for recent flu and COVID vaccines and a completed shingles series. Her last documented tetanus shot was in 2014. The patient recently fell at home after tripping over a rug, which resulted in a large bruise but no fractures or head trauma. She notes a tendency to bruise easily, which she associates with her aspirin use. She retired last year and tries to walk at least three times per week. Health Maintenance Patient received flu and COVID vaccines recently. A tetanus shot is due and will be administered today. The RSV vaccine was discussed as an elective option for the future. Anticipatory guidance was provided regarding fall prevention. The patient will follow up for her next physical in April. Social History - Employment: The patient retired last year. - Exercise: Tries to walk three times a week. - Functional Status: Independent but had a recent fall at home after tripping on a rug. Review of Systems - Cardiovascular: Reports occasional palpitations. - Denies dizziness. - Respiratory: Denies any chest issues. - Gastrointestinal: Reports good bowel movements. - Genitourinary: Reports normal urination. - Musculoskeletal: Reports a fall on Monday, resulting in stiffness in her back and side. - Integumentary: Reports easy bruising and a large bruise from the recent fall. - Neurological: Denies head trauma or dizziness with the recent fall. - Eyes: Denies vision problems other than requiring glasses. - All other systems reviewed and are negative. Physical Exam - Vitals: Blood pressure is very good. - Integumentary: Examination reveals a large bruise from a recent fall. - Extremities: No pedal edema. Results - Labs (from March 18): - CBC: Normal blood count with macrocytosis, mild leukopenia, and normal platelet count. - CMP: Normal electrolytes, renal function, and blood sugar. - Liver enzymes were mildly elevated but have since trended down. - Lipid Panel: LDL cholesterol was 70 mg/dL. - Other: B12, vitamin D, folic acid, and thyroid studies were all within normal limits. - Hepatitis testing was negative. - Imaging: - Echocardiogram (April 2023): Showed mild dilatation of the ascending aorta at 3.3 cm. - Abdominal Ultrasound: Normal. - Breast MRI (September 11): Benign findings. - Procedures: - Colonoscopy (April): Revealed diverticular disease and hemorrhoids; otherwise normal. Plan Patient was informed and verbally consented to the use of an ambient scribe for clinic note documentation during this visit. 1. Atherosclerotic Cardiovascular Disease And Hypercholesterolemia The patient's atherosclerotic vascular disease and hypercholesterolemia are stable. Her LDL is at the goal of 70 mg/dL. Continue current regimen of atorvastatin 40 mg daily and aspirin 81 mg daily. Fall prevention was discussed, noting her increased risk of bruising while on aspirin. 2. Mild Ascending Aortic Dilatation The mild aortic dilatation of 3.3 cm is stable and well below the 5 cm threshold for significant concern. Plan is to monitor with a repeat echocardiogram next year, around April. 3. Obstructive Sleep Apnea The patient is compliant with CPAP therapy, using it for more than 4 hours nightly and reporting benefit. Continue current CPAP use. She has a follow-up appointment scheduled for October. 4. Atypical Ductal Hyperplasia The patient is considered high risk and is under appropriate surveillance with a breast surgeon. Continue with scheduled surveillance, including alternating MRIs and mammograms, and clinical exams by the surgeon. 5. History Of Elevated Liver Enzymes The elevation in liver enzymes has resolved and was likely a transient reaction to clindamycin. Workup, including an abdominal ultrasound and hepatitis profile, was negative. No further workup is needed at this time; will continue to monitor with routine labs. Discussion Notes I reviewed the patient's recent lab work and diagnostic imaging with her. We discussed the mild aortic dilatation (3.3 cm), and I reassured her that this is well below the concerning threshold of 5 cm and that we will continue to monitor it annually with an echocardiogram. We also discussed the transiently elevated liver enzymes, explaining that they have normalized and the workup was negative, with the likely cause being a reaction to clindamycin. I confirmed that her cholesterol is well-controlled on atorvastatin, with an LDL at our goal of 70. We reviewed her surveillance plan for atypical ductal hyperplasia, and I explained that due to her history, the high-risk screening with alternating mammograms and MRIs will likely continue long-term. We spent considerable time discussing her recent fall. I provided counseling on fall prevention strategies, emphasizing the importance of slowing down and being aware of environmental hazards, especially given her use of aspirin and increased risk of bruising. We reviewed her vaccination status, and she agreed to receive a Tdap vaccine today as it is due. Patient Instructions - Continue taking your aspirin 81 mg and atorvastatin 40 mg every day. - Continue to use your CPAP machine every night for your sleep apnea. - We will check on the mild widening of your aorta with another heart ultrasound (echocardiogram) next April. - Continue with your breast cancer screening as directed by your surgeon, which includes alternating mammograms and MRIs. - Your tetanus shot is due, and you will receive it today in the office. - Please be very careful to prevent falls. Be aware of your surroundings, like rugs, and try to slow down, as you are at a higher risk of bruising while on aspirin. - Continue your efforts to walk regularly for exercise. - Your next follow-up appointment is already scheduled for April. Orders: Orders Td Immunization Today Z23 - Encounter for immunization
[2025-09-17 10:02] VITALS: BP 130/70; PULSE 72; O2SAT 98; BMI 23.0
--- OUTSIDE RECORDS SUMMARY | 2025-09-17 11:21 | XMS_ITS | Patient Health Record ---
[facility] randy [place] Address [address] [place] [address] Care Team Providers Care Larry Car Operator Name Role Phone Angie Hernandez Primary Care Provider Jazmín Neely Unavailable [phone] Allergies Allergen (clinical drug ingredient) Drug/Non Drug [...] Insured Coverage Start Date Coverage End Date [facility] [address] [place] [address] [id number] Neo [place] Spouse - patient is the spouse of the insured Medical (General) History Medical History History ICD Code Anemia Anxiety CAD (Cholesterol) Depression Heart disease Warts Chicken pox Sleep apnea cpap Surgical History Surgery Date(Month/Year) Tonsillectomy 1981 Fibroid removal 1987 06/09/2000 Excision Biopsy 2008
== END 2025-09-17 10:52 | disposition home or self-care (01) ==
LOC: HO.HMCH 09:56
PROVIDERS: PCP Internal Medicine; Visit Provider Internal Medicine
DX: I25.10 Atherosclerotic heart disease of native coronary artery without angina pectoris (principal); I77.810 Thoracic aortic ectasia; E78.00 Pure hypercholesterolemia, unspecified; R79.89 Other specified abnormal findings of blood chemistry; N60.91 Unspecified benign mammary dysplasia of right breast; G47.33 Obstructive sleep apnea (adult) (pediatric); Z23 Encounter for immunization

== ENCOUNTER → 2025-09-17 09:55 | Outpatient (BNVA) | payer OTHER, SELFPAY | PROVIDERS: PCP Internal Medicine; Visit Provider Internal Medicine | DX: I25.10 Atherosclerotic heart disease of native coronary artery without angina pectoris (principal); I77.810 Thoracic aortic ectasia; E78.00 Pure hypercholesterolemia, unspecified; R79.89 Other specified abnormal findings of blood chemistry; N60.91 Unspecified benign mammary dysplasia of right breast; G47.33 Obstructive sleep apnea (adult) (pediatric); Z23 Encounter for immunization; R74.8 Abnormal levels of other serum enzymes | CPT/HCPCS: 90471; 90714 ==

== ENCOUNTER 2025-10-21 09:26 | Outpatient (AMB) | payer OTHER, SELFPAY ==
[2025-10-21 09:39] VITALS: BP 140/80; PULSE 70; O2SAT 99; BMI 23.0
--- NOTE | 2025-10-21 09:39 | A.OFFVIS_ITS ---
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 Pt denies any significant interval medical history changes. Pt reports she continues to sleep well with her CPAP device. No longer having fragmenetd sleep or frequent/regular nocturnal palpitations. She uses her CPAP most nights, unless she has a cold sore or rarely if she just felt very tired. She does wonder if the mask is pulling down on her her facial skin Pt has not been having palpitations with using her CPAP device. She does note that she still has had about a 16 lb weight loss- and maybe this has affected her CPAP mask fitting. She is using distilled water in her CPAP water resorvoir. Does clean and change her CPAP supplies routinely. [facility] Compliance Report Usage 07/23/2025 - 10/20/2025 Usage days days: 99% Usage > 4 hours: 98% Average usage (days used) 7 hours 32 minutes AirSense 11 AutoSet Serial number [id number] Mode CPAP Set pressure 13 cmH2O EPR Fulltime EPR level 2 Therapy Leaks - L/min Median: 0.3 Residual AHI: 0.1 per hour PFSH Medical History Ascending aorta dilatation PVC (premature ventricular contraction) PAC (premature atrial contraction) Atypical ductal hyperplasia of right breast Abnormal myocardial perfusion study Family history of malignant neoplasm of breast Diverticular disease Coronary artery disease Vitamin D deficiency Urge incontinence Hypercholesterolemia Anxiety Surgical History H/O colonoscopy History of myomectomy Hx of right breast biopsy History of lumpectomy of right breast (~2008) Hx of section Hx of tonsillectomy Family History Mother Hx of cancer of lung Paternal Aunt HX: breast cancer Maternal Aunt History of esophageal cancer HX: breast cancer Father Myocardial infarct Brother Parkinson disease Other Substance abuse Social History Housing: House Alcohol intake: current Alcohol intake frequency: holidays/special occasions only Alcohol type: wine Patient Tobacco Use Status: Former Tobacco user Tobacco use type: Cigarette Years Smoked: quit 1998 e-Cigarette/Vaping Use: Never Used Second Hand Smoke Exposure: No Current occupational status: employed Cognitive needs: No Hearing needs: No Vision needs: Yes Female Reproductive History Menstrual Age of Menarche: 13 Physical Exam Vital Signs: Last Vital Signs Pulse 70 10/21/25 09:39 BP 140/80 H 10/21/25 09:39 Pulse Ox 99 10/21/25 09:39 Oxygen Delivery Method Room Air 10/21/25 09:39 BMI result Body Mass Index 23.0 Const General: no acute distress Orientation/consciousness: patient oriented x3 Resp Effort & Inspection: normal respiratory effort and able to speak in complete sentences Neuro General: patient oriented x3 Psych Mental Status: mental status grossly normal Speech and movement: Clear speech present Attitude: cooperative Assessment & Plan Assessment & Plan (1) Obstructive sleep apnea: Comment: CPAP use 08/2022 Code(s): G47.33 - Obstructive sleep apnea (adult) (pediatric) Category: Medical Plan Continue CPAP 13 w/ EPR 2 cmH2O nightly > 4 hours, as pt continues to have good clinical effect from use. We will request new CPAP mask fitting for ether a smaler full face mask or a nasal/nasal pillows mask. Continue to use distilled water. Clean CPAP machine and supplies routinely. Change CPAP supplies routinely. Pt to contact us or respiratory company with any questions or concerns. Pt to follow-up in 12 months or sooner prn. Coding Level of Care Code Est Pt Level 3 (90052) Diagnoses Obstructive sleep apnea G47.33
== END 2025-10-21 10:50 | disposition home or self-care (01) ==
LOC: HO.HSMS 09:27
PROVIDERS: PCP Internal Medicine; Visit Provider Nurse Practitioner Family
DX: G47.33 Obstructive sleep apnea (adult) (pediatric) (principal)
CPT/HCPCS: 99213